=== PATIENT | female | born 1945 | race Caucasian/White ===

== ENCOUNTER → 2021-06-06 08:48 | Outpatient (BNVA) | payer MEDICARE, MEDICAID, SELFPAY | PROVIDERS: PCP Internal Medicine; Visit Provider Nurse Practitioner Gerontology | DX: E11.65 Type 2 diabetes mellitus with hyperglycemia (principal); E78.00 Pure hypercholesterolemia, unspecified; I10 Essential (primary) hypertension; E66.09 Other obesity due to excess calories | CPT/HCPCS: 82947; 99212 ==

== ENCOUNTER → 2021-07-09 10:42 | Outpatient (BNVA) | payer MEDICARE, MEDICAID, SELFPAY | PROVIDERS: PCP Internal Medicine; Visit Provider Dietitian, Registered | DX: E11.65 Type 2 diabetes mellitus with hyperglycemia (principal) | CPT/HCPCS: 97802 ==

== ENCOUNTER 2021-07-12 07:16 | Outpatient (REF) | payer MEDICARE, MEDICAID, SELFPAY ==
[2021-07-12 08:22] LABS: MANUAL DIFF FLAG NO
[2021-07-12 08:30] LABS: Basophils Absolute Auto 0.1 X10*3/uL (0.0-0.2); Basophils Percent Auto 0.7 % (0-2); Eosinophils Absolute Auto 0.3 X10*3/uL (0.0-0.4); Eosinophils Percent Auto 2.8 % (0-4); Hematocrit 46.2 % (37-47); Hemoglobin 15.4 g/dl (12.0-16.0); Imm Gran Abs Auto 0.03 X10*3/uL (0.00-0.03); Imm Gran Pct Auto 0.3 % (0.0-0.4); Lymphocytes Absolute Auto 1.8 X10*3/uL (1.2-4.9); Mean Corpuscular HGB Conc 33.3 g/dl (31.0-35.0); Mean Corpuscular Hemoglobin 29.7 pg (27.0-33.0); Mean Platelet Volume 9.7 fL (9.4-12.3); Monocytes Absolute Auto 0.6 X10*3/uL (0.1-1.2); Monocytes Percent Auto 6.3 % (2-11); Neutrophils Absolute Auto 6.4 X10*3/uL (2.0-8.3); Neutrophils Percent Auto 69.9 % (45-73); Platelet Count 291 X10*3/uL (160-400); Red Blood Count 5.19 X10*6/uL (4.20-5.50); Red Cell Distribution Width 12.1 % (11.0-16.0); White Blood Count 9.1 X10*3/uL (4.8-10.8)
[2021-07-12 08:39] LABS: Estimated Average Glucose 169 mg/dL; Hemoglobin A1c % 7.5 %
[2021-07-12 08:49] LABS: Alanine Aminotransferase 18 U/L (0-31); Albumin Level 4.1 g/dL (3.5-5.0); Alkaline Phosphatase 72 U/L (39-117); Anion Gap 14 (12-20); Aspartate Amino Transferase 18 U/L (5-31); Bilirubin Total 0.5 mg/dL (0.0-1.0); Blood Urea Nitrogen 13 mg/dL (9-16); Calcium 9.4 mg/dL (8.4-10.2); Carbon Dioxide 29 mmol/L (22-29); Chloride 97 mmol/L (96-108); Cholesterol 148 mg/dL; Estimated Glomerular Filt Rate > 60; Glucose Fasting 121 mg/dL (60-99); HDL Cholesterol 36 mg/dL; LDL Cholesterol Calculated 90 mg/dl; Potassium 4.5 mmol/L (3.3-5.1); Sodium 135 mmol/L (135-145); Total Protein 7.3 g/dL (6.5-8.0); Triglycerides 114 mg/dL
[2021-07-12 09:04] LABS: Free T4 (Free Thyroxine) 1.17 ng/dL (0.71-1.85); Thyroid Stimulating Hormone 0.65 uIU/mL (0.32-4.0); Vitamin D 25-OH Total 16.9 ng/mL (>30)
[2021-07-12 09:23] LABS: Folate 6.7 ng/mL (> or = 4.0); Vitamin B12 < 146 pg/mL (200-900)
[2021-07-12 10:01] LABS: Creatinine Urine 60.54 mg/dL
[2021-07-12 10:04] LABS: Creatinine Urine 59.37 mg/dL; Microalbum/Creatinine Ratio Ur 10.1 ug/mg cr
== END 2021-07-12 07:17 | disposition home or self-care (01) ==
LOC: HO.LAB 07:16
PROVIDERS: Absent Provider Internal Medicine; PCP Internal Medicine; Visit Provider Nurse Practitioner Gerontology
DX: E11.65 Type 2 diabetes mellitus with hyperglycemia (principal); E78.00 Pure hypercholesterolemia, unspecified; I10 Essential (primary) hypertension
CPT/HCPCS: 36415; 80053; 80061; 82043; 82306; 82607; 82746; 83036; 84439; 84443; 85025

== ENCOUNTER → 2021-09-18 14:44 | Outpatient (BNVA) | payer MEDICARE, MEDICAID, SELFPAY | PROVIDERS: PCP Internal Medicine; Visit Provider Nurse Practitioner Gerontology | DX: E11.65 Type 2 diabetes mellitus with hyperglycemia (principal); I10 Essential (primary) hypertension; E78.00 Pure hypercholesterolemia, unspecified; E78.5 Hyperlipidemia, unspecified; E55.9 Vitamin D deficiency, unspecified; E66.3 Overweight; F17.210 Nicotine dependence, cigarettes, uncomplicated; Z68.29 Body mass index [BMI] 29.0-29.9, adult; Z88.2 Allergy status to sulfonamides; Z88.7 Allergy status to serum and vaccine; Z88.8 Allergy status to other drugs, medicaments and biological substances; Z79.4 Long term (current) use of insulin; Z79.84 Long term (current) use of oral hypoglycemic drugs; Z79.899 Other long term (current) drug therapy | CPT/HCPCS: 82947; 99212 ==

== ENCOUNTER 2021-11-05 15:46 | Emergency (ER) | payer OTHER, MEDICARE, MEDICAID, SELFPAY ==
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
[2021-11-05 16:05] VITALS: BP 201/91; BP 216/68; PULSE 61; PULSE 63; RESP 18; TEMP 36.7; O2SAT 97; BMI 29.4
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
[2021-11-05 16:36] LABS: Glucose, Whole Blood 95 mg/dL (60-115)
[2021-11-05 17:49] VITALS: BP 216/68; PULSE 61
[2021-11-05] MEDS: Metoprolol Tartrate 100 MG TABLET PO (17:49)
== END 2021-11-05 17:50 | disposition home or self-care (01) ==
PROVIDERS: Emergency Provider Emergency Medicine Emergency Medical Services; PCP Internal Medicine
DX: S22.31XA Fracture of one rib, right side, initial encounter for closed fracture (principal); V43.52XA Car driver injured in collision with other type car in traffic accident, initial encounter; Y93.89 Activity, other specified; Y92.410 Unspecified street and highway as the place of occurrence of the external cause; Y99.9 Unspecified external cause status
CPT/HCPCS: 71101; 82947; 99283

== ENCOUNTER → 2022-01-09 08:48 | Outpatient (BNVA) | payer MEDICARE, MEDICAID, OTHER, SELFPAY | PROVIDERS: PCP Internal Medicine; Visit Provider Nurse Practitioner Gerontology | DX: E11.9 Type 2 diabetes mellitus without complications (principal); E78.00 Pure hypercholesterolemia, unspecified; E55.9 Vitamin D deficiency, unspecified; E66.3 Overweight; I10 Essential (primary) hypertension; Z68.27 Body mass index [BMI] 27.0-27.9, adult | CPT/HCPCS: 82947; 83036; 99212 ==

== ENCOUNTER 2022-07-23 09:05 | Outpatient (REF) | payer MEDICARE, MEDICAID, SELFPAY ==
--- NOTE | ~2022-07-23 | MM_ITS ---
EXAMINATION: BONE DENSITOMETRY CLINICAL INDICATION: Osteoporosis. COMPARISON: Previous BD dated 03/05/2010 and baseline BD dated 11/20/2010. TECHNIQUE: Using a [employer] DXA System (software version: 13.1) manufactured by [employer], dual-energy x-ray absorptiometry was performed of the lumbar spine and left hip. The images are of good technical quality. Summary results are attached. FINDINGS: AP SPINE L1-L4: Current: BMD 1.166 g/cm2, Z-score 1.0, T-score -0.1, normal, 1.3% decrease from previous, 8.4% decrease from baseline (<5% change is not significant). Prior: BMD 1.181 g/cm2. Baseline: BMD 1.273 g/cm2. LEFT FEMUR, NECK: Current: BMD 0.925 g/cm2, Z-score 0.7, T-score -0.8, normal. Prior: BMD 0.980 g/cm2. Baseline: BMD 1.016 g/cm2. LEFT FEMUR, TOTAL: Current: BMD 0.858 g/cm2, Z-score 0.1, T-score -1.2, osteopenia, 7.5% decrease from previous, 13.9% decrease from baseline (<5% change is not significant). Prior: BMD 0.928 g/cm2. Baseline: BMD 0.996 g/cm2. IDENTIFIED RISK FACTORS: Early menopause, secondary osteoporosis, tobacco use (current smoker). HISTORY OF FRACTURE: None listed. MEDICATIONS: Calcium, vitamin D. MM/XR DEXA axial skeleton IMPRESSION: 1. DIAGNOSIS: Osteopenia based on the lowest T-score value of -1.2 in the total femur applying World Health Organization criteria. 2. 10-YEAR FRACTURE RISK PREDICTION, FRAX: Major osteoporotic fracture (clinical spine, forearm, hip or shoulder) 8.6%. Hip fracture 1.8%. 3. Treatment Recommendations: NOF guidelines recommend consideration for treatment in postmenopausal women and men age 50 and older presenting with the following: -A hip or vertebral (clinical or morphometric) fracture. -T-score less than or equal to -2.5 at the femoral neck or spine after appropriate evaluation to exclude secondary causes. -Low bone mass at the hip or spine and a 10-year fracture probability by FRAX of greater than or equal to 3% for hip fracture or greater than or equal to 20% for major osteoporotic fracture based on the [place] adapted WHO algorithm. 4. Other Recommendations: All treatment decisions require clinical judgment and consideration of individual patient factors, including patient preferences, comorbidities, previous drug use, risk factors not captured in the FRAX model (e.g. frailty, falls, vitamin D deficiency, increased bone turnover, interval significant decline in bone density) and possible under or overestimation of fracture risk by FRAX. Additional medical evaluation for secondary cause of low bone mineral density may be appropriate. FUTURE SCAN RECOMMENDATION: People with diagnosed cases of osteoporosis or at high risk for fracture should have regular bone mineral density tests. For patients eligible for Medicare, routine testing is allowed once every 2 years. The testing frequency can be increased to one year for patients who have rapidly progressing disease, those who are receiving or discontinuing medical therapy to restore bone mass, or have additional risk factors.
--- NOTE | ~2022-07-23 | MM_ITS ---
EXAMINATION: MM SCREENING DIGITAL BREAST TOMOSYNTHESIS, BILATERAL CLINICAL INFORMATION: Screening. Asymptomatic. The lifetime risk of breast cancer based on the Tyrer-Cuzick Model is 2%. COMPARISON: Mammography: 04/06/2019, 03/05/2018, 02/28/2015 TECHNIQUE: Digital breast tomosynthesis is performed in both the craniocaudal and mediolateral oblique views along with computer-aided detection (CAD). Synthesized 2D images are generated from the tomosynthesis. FINDINGS: There are scattered areas of fibroglandular density (ACR BI-RADS breast composition Category b). There are no significant masses, abnormal calcifications, or other abnormalities. Parenchymal pattern is similar to prior studies. There is no developing density or architectural abnormality. The axilla and skin contours are unremarkable. MM/MM tomosynthesis screening BI IMPRESSION: No mammographic evidence of malignancy. ASSESSMENT: BI-RADS 1: Negative RECOMMENDATION: Routine annual mammography screening. This patient's information was entered into a reminder system with a target due date for their next mammogram.
== END 2022-07-23 09:06 | disposition home or self-care (01) ==
LOC: HO.MAMMO 09:05
PROVIDERS: PCP Internal Medicine; Visit Provider Internal Medicine
DX: Z13.820 Encounter for screening for osteoporosis (principal); Z12.31 Encounter for screening mammogram for malignant neoplasm of breast; M81.0 Age-related osteoporosis without current pathological fracture; Z78.0 Asymptomatic menopausal state
CPT/HCPCS: 77063; 77067; 77080

== ENCOUNTER 2022-12-13 19:14 | Inpatient (IN) | payer MEDICARE, MEDICAID, SELFPAY ==
--- NOTE | ~2022-12-13 | XR_ITS ---
EXAMINATION: XR CHEST CLINICAL INFORMATION: Altered mental status. Shortness of breath. COMPARISON: Chest done on 11/05/2021. TECHNIQUE: Frontal view of the chest was obtained. FINDINGS: Asymmetric elevated left hemidiaphragm, unchanged since 11/05/2021. Both lungs are clear. The cardiomediastinal silhouette is within normal limits. No evidence of any pleural effusion or pneumothorax. No significant change since prior study. XR/XR chest 1V IMPRESSION: No radiographic evidence of acute cardiopulmonary disease, unchanged since prior study.
--- NOTE | ~2022-12-13 | CT_ITS ---
EXAMINATION: CT HEAD WITHOUT CONTRAST CLINICAL INFORMATION: Altered mental status. Weakness. COMPARISON: None. TECHNIQUE: Contiguous axial imaging was performed from the skull base to vertex without intravenous administration of contrast. Coronal and sagittal reformatted images are performed at the CT scanner. [This CT examination was performed using dose optimization techniques as appropriate, variously including the following: *Automated exposure control *Adjustment of mA and/or kV according to patient size (this includes techniques or standardized protocols for targeted exams where dose is matched to indication/reason for exam; i.e. extremities or head) *Use of iterative reconstruction technique] DLP: 611 mGy-cm. FINDINGS: There is no evidence of acute intracranial hemorrhage or territorial infarction. No abnormal mass-effect or midline shift is seen. [place] to white matter differentiation is well preserved. No extra-axial fluid collections are identified. There is generalized global volume loss. There is mild prominence of the ventricles and the sulci . There are vascular calcifications of the internal carotid arteries bilaterally. There is no osseous abnormality. The mastoid air cells and visualized portions of the paranasal sinuses are well-aerated. CT/CT head/brain wo IV con IMPRESSION: No acute intracranial pathology.
--- NOTE | 2022-12-13 19:37 | ECG_ITS ---
Test Reason : GENERAL MEDICAL Blood Pressure : / mmHG Vent. Rate : 099 BPM Atrial Rate : 099 BPM P-R Int : 216 ms QRS Dur : 130 ms QT Int : 354 ms P-R-T Axes : 067 -23 003 degrees QTc Int : 454 ms Sinus rhythm with 1st degree A-V block Right bundle branch block Abnormal ECG When compared with ECG of 25-MAR-2019 09:24, [place] interval has increased Vent. rate has increased BY 40 BPM Referred By: Mandi Amanda Electronically Signed By:AGUILA CURTIS MD
[2022-12-13 19:39] VITALS: BP 178/63; BP 188/81; PULSE 100; PULSE 104; RESP 22; TEMP 40.1; O2SAT 93; O2SAT 94; BMI 28.4
--- NOTE | 2022-12-13 19:51 | ED.GENADULT ---
HPI - General Adult General Chief complaint: Fever Stated complaint: AMS/Fever Time Seen by Provider: 12/13/22 19:38 Source: patient Mode of arrival: ambulatory Limitations: no limitations History of Present Illness HPI narrative: This is a 77-year-old female history of hypertension, hypercholesterolemia, COPD, diabetes, vitamin B12 deficiency, anxiety, osteoporosis presenting to the emergency department via ambulance for feeling unwell. According to family member who is at the bedside patient had an episode of this shakes just prior to arrival, or patient was uncontrollably shaking for a few minutes, still alert and oriented however she could not stop shaking. Family thought that maybe this was patient's sugar they checked her blood sugar at home and it was 116. Patient reports generalized fatigue and malaise however has no other complaints. Family member at the bedside tells me that she noted that earlier today patient was a little bit more confused than usual however no other noted complaints. Patient denies chest pain, shortness of breath, nausea, vomiting, upper respiratory symptoms including cough, runny nose, lower extremity swelling, headache, urinary symptoms. GCS 15 NIHSS-0 Related Data Home Medications Medication Instructions Recorded Confirmed cetirizine 10 mg tablet (Zyrtec) 10 mg PO DAILY PRN 04/19/21 11/03/22 cholecalciferol (vitamin D3) 25 25 mcg PO DAILY 09/18/21 11/03/22 mcg (1,000 unit) capsule Previous Rx's Medication Instructions Recorded blood-glucose meter (FreeStyle #1 ea 04/19/21 Lite Meter kit) cyanocobalamin (vitamin B-12) 1,000 mcg PO DAILY #30 caps 07/12/21 1,000 mcg capsule metformin 500 mg tablet 500 mg PO BID #180 tabs 09/18/21 lancets 28 gauge (FreeStyle #200 ea 01/01/22 Lancets) blood sugar diagnostic (FreeStyle #200 ea 01/02/22 Lite Strips) simvastatin 40 mg tablet 40 mg PO QPM #90 tabs 02/24/22 blood pressure monitor (Blood #1 ea 11/03/22 Pressure Kit) losartan 50 mg tablet 50 mg PO DAILY #30 tabs 11/03/22 metoprolol tartrate 50 mg tablet 50 mg PO BID 30 days #60 tabs 11/03/22 Allergies Allergy/AdvReac Type Severity Reaction Status Date / Time amlodipine Allergy Unknown leg Verified 11/03/22 08:33 swelling irbesartan Allergy Unknown rectal Verified 11/03/22 08:33 bleeding iron Allergy Unknown cough Verified 11/03/22 08:33 lisinopril Allergy Unknown unknown Verified 11/03/22 08:33 simvastatin Allergy Unknown at 40 mg Verified 11/03/22 08:33 cramps Sulfa (Sulfonamide Allergy Unknown HIVES Verified 11/03/22 08:33 Antibiotics) [SULFA (SULFONAMIDE ANTIBIOTICS)] Influenza Virus Vaccine Live Allergy Unknown unknown Uncoded 11/03/22 08:33 Review of Systems Review of Systems: Constitutional : No Weight loss, No Fever, No Chills, + Fatigue, + Malaise ENT/Mouth : No sore throat, No Rhinorrhea Eyes: No Eye Pain, No Swelling, No Redness Cardiovascular : No Chest Pain, No SOB, No Dyspnea on Exertion, No Orthopnea, No Edema, No Palpitations Respiratory : No Cough, No Sputum, No Wheezing Gastrointestinal : No Nausea, No Vomiting, No Diarrhea, No Constipation, No abdominal Pain, No Hematochezia, No Melena Genitourinary : No Dysuria, No Urinary Frequency, No Hematuria, Musculoskeletal : No joint pain, No Myalgias, No Joint Swelling Skin : No Skin Lesions, No rash Neuro : No Weakness, No Numbness, No Dizziness, No Headache Psych : No Anxiety/Panic, No Depression Heme/Lymph: No Bruising, No Bleeding,No Lymphadenopathy Endocrine : No Polyuria, No Polydipsia All other systems reviewed and are negative Yes all other systems are reviewed and are negative [facility] Past Medical History Attestation statement: The following information was validated with the patient. Source: old records reviewed and nursing notes reviewed Medical History Allergic rhinitis Colonoscopy refused COPD (chronic obstructive pulmonary disease) DM2 (diabetes mellitus, type 2) Hypercholesterolemia Hypertension Obesity (BMI 30-39.9) Post herpetic neuralgia Tobacco abuse Type 2 diabetes mellitus with hyperglycemia Vitamin D deficiency Surgical History Deviated septum History of cataract surgery Family History Family History Father No problems noted. Mother No problems noted. Maternal Uncle Diabetes Maternal Uncle Heart problem Social History Social History Household Members: Family and Children Housing: House Alcohol intake: never Patient Tobacco Use Status: Current everyday Tobacco user Tobacco use type: Cigarette Cigarettes Per Day: 10 e-Cigarette/Vaping Use: Never Used Second Hand Smoke Exposure: Yes Advance Directives: No Advance Directives Information Provided: No service: No Current occupational status: retired Cognitive needs: No Hearing needs: No Vision needs: No Physical Exam ED Vital Signs: Vital Signs - 24 hr 12/13/22 19:39 12/13/22 21:14 Temperature 104.2 F H 100.2 F Pulse Rate 100 90 Respiratory Rate 22 H 20 Blood Pressure 178/63 H 150/58 H Pulse Oximetry 94 93 Oxygen Delivery Method Room Air Room Air BMI result Body Mass Index 28.4 Vital signs significant for fevers slight tachycardia likely secondary to fever, patient saturating 94% on room air Appearance: Alert.? Oriented X3.? No acute distress.? Head: Normocephalic, atraumatic, no step-offs or deformities Eyes: Pupils equal, round and reactive to light.? CVS: Normal heart rate and rhythm.? Pulses normal.? Respiratory: No respiratory distress.? Breath sounds normal.? Abdomen: Soft and nontender.? Skin: Skin warm and dry.? Normal skin color.? Normal skin turgor.? Extremities: No lower extremity edema.? No calf ttp, negative Ayla bilaterally. Global weakness Back: No midline tenderness, no C-spine tenderness, full range of motion, no CVA tenderness bilaterally Neuro: Oriented X 3.? No motor deficit.? No sensory deficit. CN 2-12 intact NIH stroke scale 0 Course Reevaluation(s) Reevaluation #1: CBC with slight leukocytosis, chemistry with sodium of 132 will give IV fluids, patient's BNP 284, troponin 56.6 will repeat troponin at 23:00 however EKG nonischemic low suspicion for ACS and patient without chest pain. Lactic acid negative. UA with infection, will initiate ceftriaxone at this time. Head CT and chest x-ray pending at this time. Suspect patient will require hospital admission Time: 20:49 Reevaluation #2: Head CT unremarkable, chest CT with no acute findings. Discussed this case with hospitalist who will admit patient for UTI, weakness, altered mental status. Time: 21:34 Medications Administered Discontinued Medications Generic Name Dose Route Start Last Admin Trade Name Nelsy PRN Reason Stop Dose Admin Acetaminophen 650 mg 12/13/22 19:56 12/13/22 20:15 Acetaminophen 325 Mg Tablet PO 12/13/22 19:57 650 mg ONCE ONE Administration Medical Decision Making Medical Decision Making [facility] Narrative: 1948 77-year-old female presents with fatigue, malaise and an episode of rigors at home just prior to arrival. No known sick contacts. Patient noted to be febrile and tachycardic. No other abnormal findings on exam. Likely viral in origin vs UTI. I do not suspect seizure, meningitis, encephalitis, stroke, posterior stroke, CHF, ACS, PE. Plan at this time labs, imaging, urine and viral panel Differential Diagnosis Differential Diagnoses: The differential diagnosis associated with the presentation includes Likely viral in origin VS UTI . I do not suspect seizure, meningitis, encephalitis, stroke, posterior stroke, CHF, ACS, PE. Admission/Observation Consideration of admission/observation: Escalation of care including admission/observation considered Consult Healthcare Provider Management of the patient was discussed with: Hospitalist Lab Data [facility] Lab Attestation statement: I reviewed the patient's lab results. 12/13/22 20:36 12/13/22 20:00 Labs: Lab Results 12/13/22 12/13/22 12/13/22 Range/Units 19:48 20:00 20:00 WBC (4.8-10.8) X10*3/uL RBC (4.20-5.50) X10*6/uL Hgb (12.0-16.0) g/dl Hct (37.0-47.0) % MCV (80.0-98.0) fL MCH (27.0-33.0) pg MCHC (31.0-35.0) g/dl RDW (11.0-16.0) % Plt Count (160-400) X10*3/uL MPV (9.4-12.3) fL Immature Gran % (Auto) (0.0-0.4) % Neut % (Auto) (45-73) % Lymph % (Auto) (20-40) % [place] % (Auto) (2-11) % Eos % (Auto) (0-4) % Baso % (Auto) (0-2) % Lymph # (Auto) (1.2-4.9) X10*3/uL [place] # (Auto) (0.1-1.2) X10*3/uL Eos # (Auto) (0.0-0.4) X10*3/uL Baso # (Auto) (0.0-0.2) X10*3/uL Abs Immat Gran (auto) (0.00-0.03) X10*3/uL Absolute Neuts (auto) (2.0-8.3) x10*3/uL Absolute Nucleated RBC (0.0-0.012) X10*3/uL Nucleated RBC % (auto) (0.0-0.2) /100WBC Smear Tech's Comments Sodium 132 L (135-145) mmol/L Potassium 4.4 (3.3-5.1) mmol/L Chloride 96 (96-108) mmol/L Carbon Dioxide 26 (22-29) mmol/L Anion Gap 14 (12-20) BUN 19 H (9-16) mg/dL Creatinine 0.89 (0.5-1.4) mg/dL Estim Creat Clear Calc 50.2 Estimated GFR > 60 POC Glucose 162 H (60-115) mg/dL Random Glucose 152 H (60-115) mg/dL Lactic Acid 1.5 (0.5-2.0) mmol/L Calcium 9.1 (8.4-10.2) mg/dL Magnesium 1.6 (1.6-2.6) mg/dL Total Bilirubin 0.9 (0.0-1.0) mg/dL AST 15 (5-31) U/L ALT 10 (0-31) U/L Alkaline Phosphatase 72 (39-117) U/L Troponin I High Sens (<3.5-17.0) ng/L B-Natriuretic Peptide (<100) pg/mL Total Protein 6.6 (6.5-8.0) g/dL Albumin 3.8 (3.5-5.0) g/dL Urine Color Urine Appearance Urine pH (5.0-9.0) Ur Specific [place] (1.005-1.025) Urine Protein (Neg-Trace) mg/dL Urine Glucose (UA) (Negative) mg/dL Urine Ketones (Negative) mg/dL Urine Blood (Negative) Urine Nitrite (Negative) Ur Leukocyte Esterase (Negative) Urine RBC (0-2) /HPF Urine WBC (0-5) /HPF Ur Squamous Epith Cells (0-2) /HPF Urine Bacteria (None Seen) Hyaline Casts (0-2) /LPF Urine Opiates Screen (Not Detect) Urine Fentanyl Screen (Not Detect) Ur Barbiturates Screen (Not Detect) Ur Phencyclidine Scrn (Not Detect) Ur Amphetamines Screen (Not Detect) U Benzodiazepines Scrn (Not Detect) Urine Cocaine Screen (Not Detect) U Marijuana (THC) Screen (Not Detect) Ethyl Alcohol mg/dL COVID-19 (ROSHAN) (Negative) COVID-19 Clin Com Influenza Type A (RICARDO) (Negative) Influenza Type B (RICARDO) (Negative) Influenza A & B Note 12/13/22 12/13/22 12/13/22 Range/Units 20:00 20:00 20:00 WBC (4.8-10.8) X10*3/uL RBC (4.20-5.50) X10*6/uL Hgb (12.0-16.0) g/dl Hct (37.0-47.0) % MCV (80.0-98.0) fL MCH (27.0-33.0) pg MCHC (31.0-35.0) g/dl RDW (11.0-16.0) % Plt Count (160-400) X10*3/uL MPV (9.4-12.3) fL Immature Gran % (Auto) (0.0-0.4) % Neut % (Auto) (45-73) % Lymph % (Auto) (20-40) % [place] % (Auto) (2-11) % Eos % (Auto) (0-4) % Baso % (Auto) (0-2) % Lymph # (Auto) (1.2-4.9) X10*3/uL [place] # (Auto) (0.1-1.2) X10*3/uL Eos # (Auto) (0.0-0.4) X10*3/uL Baso # (Auto) (0.0-0.2) X10*3/uL Abs Immat Gran (auto) (0.00-0.03) X10*3/uL Absolute Neuts (auto) (2.0-8.3) x10*3/uL Absolute Nucleated RBC (0.0-0.012) X10*3/uL Nucleated RBC % (auto) (0.0-0.2) /100WBC Smear Tech's Comments Sodium (135-145) mmol/L Potassium (3.3-5.1) mmol/L Chloride (96-108) mmol/L Carbon Dioxide (22-29) mmol/L Anion Gap (12-20) BUN (9-16) mg/dL Creatinine (0.5-1.4) mg/dL Estim Creat Clear Calc Estimated GFR POC Glucose (60-115) mg/dL Random Glucose (60-115) mg/dL Lactic Acid (0.5-2.0) mmol/L Calcium (8.4-10.2) mg/dL Magnesium (1.6-2.6) mg/dL Total Bilirubin (0.0-1.0) mg/dL AST (5-31) U/L ALT (0-31) U/L Alkaline Phosphatase (39-117) U/L Troponin I High Sens (<3.5-17.0) ng/L B-Natriuretic Peptide 284 H (<100) pg/mL Total Protein (6.5-8.0) g/dL Albumin (3.5-5.0) g/dL Urine Color Urine Appearance Urine pH (5.0-9.0) Ur Specific [place] (1.005-1.025) Urine Protein (Neg-Trace) mg/dL Urine Glucose (UA) (Negative) mg/dL Urine Ketones (Negative) mg/dL Urine Blood (Negative) Urine Nitrite (Negative) Ur Leukocyte Esterase (Negative) Urine RBC (0-2) /HPF Urine WBC (0-5) /HPF Ur Squamous Epith Cells (0-2) /HPF Urine Bacteria (None Seen) Hyaline Casts (0-2) /LPF Urine Opiates Screen (Not Detect) Urine Fentanyl Screen (Not Detect) Ur Barbiturates Screen (Not Detect) Ur Phencyclidine Scrn (Not Detect) Ur Amphetamines Screen (Not Detect) U Benzodiazepines Scrn (Not Detect) Urine Cocaine Screen (Not Detect) U Marijuana (THC) Screen (Not Detect) Ethyl Alcohol < 10 mg/dL COVID-19 (ROSHAN) Negative (Negative) COVID-19 Clin Com See Note Influenza Type A (RICARDO) (Negative) Influenza Type B (RICARDO) (Negative) Influenza A & B Note 12/13/22 12/13/22 12/13/22 Range/Units 20:07 20:07 20:09 WBC (4.8-10.8) X10*3/uL RBC (4.20-5.50) X10*6/uL Hgb (12.0-16.0) g/dl Hct (37.0-47.0) % MCV (80.0-98.0) fL MCH (27.0-33.0) pg MCHC (31.0-35.0) g/dl RDW (11.0-16.0) % Plt Count (160-400) X10*3/uL MPV (9.4-12.3) fL Immature Gran % (Auto) (0.0-0.4) % Neut % (Auto) (45-73) % Lymph % (Auto) (20-40) % [place] % (Auto) (2-11) % Eos % (Auto) (0-4) % Baso % (Auto) (0-2) % Lymph # (Auto) (1.2-4.9) X10*3/uL [place] # (Auto) (0.1-1.2) X10*3/uL Eos # (Auto) (0.0-0.4) X10*3/uL Baso # (Auto) (0.0-0.2) X10*3/uL Abs Immat Gran (auto) (0.00-0.03) X10*3/uL Absolute Neuts (auto) (2.0-8.3) x10*3/uL Absolute Nucleated RBC (0.0-0.012) X10*3/uL Nucleated RBC % (auto) (0.0-0.2) /100WBC Smear Tech's Comments Sodium (135-145) mmol/L Potassium (3.3-5.1) mmol/L Chloride (96-108) mmol/L Carbon Dioxide (22-29) mmol/L Anion Gap (12-20) BUN (9-16) mg/dL Creatinine (0.5-1.4) mg/dL Estim Creat Clear Calc Estimated GFR POC Glucose (60-115) mg/dL Random Glucose (60-115) mg/dL Lactic Acid (0.5-2.0) mmol/L Calcium (8.4-10.2) mg/dL Magnesium (1.6-2.6) mg/dL Total Bilirubin (0.0-1.0) mg/dL AST (5-31) U/L ALT (0-31) U/L Alkaline Phosphatase (39-117) U/L Troponin I High Sens 56.6 H* (<3.5-17.0) ng/L B-Natriuretic Peptide (<100) pg/mL Total Protein (6.5-8.0) g/dL Albumin (3.5-5.0) g/dL Urine Color Yellow Urine Appearance Cloudy Urine pH 7.0 (5.0-9.0) Ur Specific [place] 1.010 (1.005-1.025) Urine Protein 100 (2+) H (Neg-Trace) mg/dL Urine Glucose (UA) Negative (Negative) mg/dL Urine Ketones Trace (Negative) mg/dL Urine Blood Moderate (2+) H (Negative) Urine Nitrite Positive H (Negative) Ur Leukocyte Esterase Moderate (2+) H (Negative) Urine RBC 11-20 H (0-2) /HPF Urine WBC >50 H (0-5) /HPF Ur Squamous Epith Cells 0-2 (0-2) /HPF Urine Bacteria 4+ (None Seen) Hyaline Casts 0-2 (0-2) /LPF Urine Opiates Screen (Not Detect) Urine Fentanyl Screen (Not Detect) Ur Barbiturates Screen (Not Detect) Ur Phencyclidine Scrn (Not Detect) Ur Amphetamines Screen (Not Detect) U Benzodiazepines Scrn (Not Detect) Urine Cocaine Screen (Not Detect) U Marijuana (THC) Screen (Not Detect) Ethyl Alcohol mg/dL COVID-19 (ROSHAN) (Negative) COVID-19 Clin Com Influenza Type A (RICARDO) Negative (Negative) Influenza Type B (RICARDO) Negative (Negative) Influenza A & B Note See Note 12/13/22 12/13/22 Range/Units 20:36 20:36 WBC 11.4 H (4.8-10.8) X10*3/uL RBC 4.65 (4.20-5.50) X10*6/uL Hgb 13.7 (12.0-16.0) g/dl Hct 40.0 (37.0-47.0) % MCV 86.0 (80.0-98.0) fL MCH 29.5 (27.0-33.0) pg MCHC 34.3 (31.0-35.0) g/dl RDW 12.7 (11.0-16.0) % Plt Count 188 (160-400) X10*3/uL MPV 8.8 L (9.4-12.3) fL Immature Gran % (Auto) 0.4 (0.0-0.4) % Neut % (Auto) 91.5 H (45-73) % Lymph % (Auto) 3.8 L (20-40) % [place] % (Auto) 4.0 (2-11) % Eos % (Auto) 0.1 (0-4) % Baso % (Auto) 0.2 (0-2) % Lymph # (Auto) 0.4 L (1.2-4.9) X10*3/uL [place] # (Auto) 0.5 (0.1-1.2) X10*3/uL Eos # (Auto) 0.0 (0.0-0.4) X10*3/uL Baso # (Auto) 0.0 (0.0-0.2) X10*3/uL Abs Immat Gran (auto) 0.05 H (0.00-0.03) X10*3/uL Absolute Neuts (auto) 10.4 H (2.0-8.3) x10*3/uL Absolute Nucleated RBC 0.000 (0.0-0.012) X10*3/uL Nucleated RBC % (auto) 0.0 (0.0-0.2) /100WBC Smear Tech's Comments VERIFIED Sodium (135-145) mmol/L Potassium (3.3-5.1) mmol/L Chloride (96-108) mmol/L Carbon Dioxide (22-29) mmol/L Anion Gap (12-20) BUN (9-16) mg/dL Creatinine (0.5-1.4) mg/dL Estim Creat Clear Calc Estimated GFR POC Glucose (60-115) mg/dL Random Glucose (60-115) mg/dL Lactic Acid (0.5-2.0) mmol/L Calcium (8.4-10.2) mg/dL Magnesium (1.6-2.6) mg/dL Total Bilirubin (0.0-1.0) mg/dL AST (5-31) U/L ALT (0-31) U/L Alkaline Phosphatase (39-117) U/L Troponin I High Sens (<3.5-17.0) ng/L B-Natriuretic Peptide (<100) pg/mL Total Protein (6.5-8.0) g/dL Albumin (3.5-5.0) g/dL Urine Color Urine Appearance Urine pH (5.0-9.0) Ur Specific [place] (1.005-1.025) Urine Protein (Neg-Trace) mg/dL Urine Glucose (UA) (Negative) mg/dL Urine Ketones (Negative) mg/dL Urine Blood (Negative) Urine Nitrite (Negative) Ur Leukocyte Esterase (Negative) Urine RBC (0-2) /HPF Urine WBC (0-5) /HPF Ur Squamous Epith Cells (0-2) /HPF Urine Bacteria (None Seen) Hyaline Casts (0-2) /LPF Urine Opiates Screen Not Detected (Not Detect) Urine Fentanyl Screen Not Detected (Not Detect) Ur Barbiturates Screen Not Detected (Not Detect) Ur Phencyclidine Scrn Not Detected (Not Detect) Ur Amphetamines Screen Not Detected (Not Detect) U Benzodiazepines Scrn Not Detected (Not Detect) Urine Cocaine Screen Not Detected (Not Detect) U Marijuana (THC) Screen Not Detected (Not Detect) Ethyl Alcohol mg/dL COVID-19 (ROSHAN) (Negative) COVID-19 Clin Com Influenza Type A (RICARDO) (Negative) Influenza Type B (RICARDO) (Negative) Influenza A & B Note Independent Interpretation I performed an independent interpretation of an: Plain X-Ray and CT Scan Radiology Impression Discussion of test interpretation with radiology: I have reviewed the radiologist's reading. External Record Review External record reviewed: Inpatient record, Office record, Outpatient record, Prior outpatient labs, Prior outpatient radiology, Primary care record and Outside ED record Chronic Conditions Patient?s care impacted by: Diabetes and Hypertension Core Measures AMI core measures followed: Yes Measure exclusions: not indicated Critical Care Time Critical Care Time Critical Care Time: No Discharge Plan Discharge Clinical Impression: Rigors, Acute UTI, Physical deconditioning Patient Disposition: Admitted As Inpatient Prescriptions: No Action cyanocobalamin (vitamin B-12) 1,000 mcg capsule 1,000 mcg PO DAILY Qty: 30 3RF (DME) lancets [FreeStyle Lancets] 28 gauge misc See Rx Instructions .ROUTE .MEDSUPPLY Qty: 200 3RF Rx Instructions: As directed check BS BID (DME) FreeStyle Lite Strips Strip See Rx Instructions .ROUTE .MEDSUPPLY Qty: 200 3RF Rx Instructions: As directed check the BS twice daily simvastatin 40 mg tablet 40 mg PO QPM Qty: 90 2RF cetirizine [Zyrtec] 10 mg tablet 10 mg PO DAILY PRN (DME) blood-glucose meter [FreeStyle Lite Meter] Kit See Rx Instructions .ROUTE .MEDSUPPLY Qty: 1 0RF Rx Instructions: As directed (DME) blood pressure monitor [Blood Pressure Kit] Kit See Rx Instructions .ROUTE .MEDSUPPLY Qty: 1 0RF Rx Instructions: As directed losartan 50 mg tablet 50 mg PO DAILY Qty: 30 3RF metoprolol tartrate 50 mg tablet 50 mg PO BID 30 Days Qty: 60 3RF Rx Instructions: bradycardia changed 06/2022 from 100 mg to 50 mg cholecalciferol (vitamin D3) 25 mcg (1,000 unit) capsule 25 mcg PO DAILY metformin 500 mg tablet 500 mg PO BID Qty: 180 6RF
[2022-12-13 19:52] LABS: Glucose, Whole Blood 162 mg/dL (60-115)
[2022-12-13] MEDS: Acetaminophen 325 MG TABLET 650 MG PO (20:15)
[2022-12-13 20:21] LABS: Appearance Urine Cloudy; Color Urine Yellow; Glucose Urine UA Negative (Negative); Leukocyte Esterase Urine Moderate (2+) (Negative); Nitrite Urine Positive (Negative); UMIC TRIGGER UACC YES; Urine Blood Moderate (2+) (Negative); Urine Ketones Trace mg/dL (Negative); Urine Protein 100 (2+) mg/dL (Neg-Trace)
[2022-12-13 20:22] LABS: Lactic Acid 1.5 mmol/L (0.5-2.0)
[2022-12-13 20:24] LABS: COVID-19 Test Negative (Negative); IDNOW Serial# 6674DD1D
[2022-12-13 20:26] LABS: Alanine Aminotransferase 10 U/L (0-31); Albumin Level 3.8 g/dL (3.5-5.0); Alkaline Phosphatase 72 U/L (39-117); Anion Gap 14 (12-20); Aspartate Amino Transferase 15 U/L (5-31); Bilirubin Total 0.9 mg/dL (0.0-1.0); Blood Urea Nitrogen 19 mg/dL (9-16); Calcium 9.1 mg/dL (8.4-10.2); Carbon Dioxide 26 mmol/L (22-29); Chloride 96 mmol/L (96-108); Creatinine Clr Calc Pharmacy 50.2; Estimated Glomerular Filt Rate > 60; Glucose Random 152 mg/dL (60-115); Magnesium 1.6 mg/dL (1.6-2.6); Potassium 4.4 mmol/L (3.3-5.1); Sodium 132 mmol/L (135-145); Total Protein 6.6 g/dL (6.5-8.0)
[2022-12-13 20:31] LABS: Ethanol < 10 mg/dL
--- NOTE | 2022-12-13 20:31 | PC.NURSE ---
PT A&Ox3, reports feeling lousy, shaking, unable to warm up, frequent urinations with no pain. EMS reports temporal fever of 103. Rectal temp 104.2. Provider notified. Med given as documented. Visitor at bedside. PT assisted to bedpan. Urine sample collected and sent to lab.
[2022-12-13 20:32] LABS: Bacteria Urine 4+ (None Seen); Hyaline Casts Urine 0-2 /LPF (0-2); Squamous Epithelial Cell Urine 0-2 /HPF (0-2); UACC Culture Trigger YES; WBC Urine >50 /HPF (0-5)
[2022-12-13 20:35] LABS: IDNOW Serial# 55D5AD1C; Influenza A Negative (Negative); Influenza B2 Negative (Negative)
[2022-12-13 20:41] LABS: B Type Natriuretic Peptide 284 pg/mL (<100)
[2022-12-13 20:45] LABS: Basophils Percent Auto 0.2 % (0-2); Eosinophils Percent Auto 0.1 % (0-4); Hemoglobin 13.7 g/dl (12.0-16.0); Imm Gran Abs Auto 0.05 X10*3/uL (0.00-0.03); Imm Gran Pct Auto 0.4 % (0.0-0.4); Lymphocytes Absolute Auto 0.4 X10*3/uL (1.2-4.9); Lymphocytes Percent Auto 3.8 % (20-40); MANUAL DIFF FLAG SCAN; Mean Corpuscular HGB Conc 34.3 g/dl (31.0-35.0); Mean Corpuscular Hemoglobin 29.5 pg (27.0-33.0); Mean Platelet Volume 8.8 fL (9.4-12.3); Monocytes Absolute Auto 0.5 X10*3/uL (0.1-1.2); Neutrophils Absolute Auto 10.4 x10*3/uL (2.0-8.3); Neutrophils Percent Auto 91.5 % (45-73); Platelet Count 188 X10*3/uL (160-400); Red Blood Count 4.65 X10*6/uL (4.20-5.50); Red Cell Distribution Width 12.7 % (11.0-16.0); SCAN SMEAR FLAG 1; White Blood Count 11.4 X10*3/uL (4.8-10.8)
[2022-12-13 20:48] LABS: Troponin-I High Sensitivity 56.6 ng/L (<3.5-17.0)
[2022-12-13 20:59] LABS: Amphetamine Screen Urine Not Detected (Not Detect); Barbiturates, Urine Not Detected (Not Detect); Benzodiazepines Screen Urine Not Detected (Not Detect); Cannabinoid Screen Urine Not Detected (Not Detect); Cocaine Screen Urine Not Detected (Not Detect); Fentanyl, urine Not Detected (Not Detect); Opiate Screen Urine Not Detected (Not Detect); Phencyclidine Screen Urine Not Detected (Not Detect)
[2022-12-13 21:07] LABS: SLIDE REVIEW VERIFIED
[2022-12-13 21:14] VITALS: BP 150/58; PULSE 90; RESP 20; TEMP 37.9; O2SAT 93
[2022-12-13] MEDS: cefTRIAXone sodium 1 GM in 0.9 % Sodium Chloride 50 ML IV (21:35)
[2022-12-13] MEDS: 0.9 % Sodium Chloride 1,000 ML 999 ML IV ×2 (21:36→22:41)
[2022-12-13 21:38] VITALS: TEMP 37.3
--- NOTE | 2022-12-13 22:15 | PM.IMHP ---
History of Present Illness Date of Service: 12/13/22 Chief Complaint: Fever This is a 77-year-old female with pertinent history of bzj-gbozrum-inylgogrb diabetes mellitus, mood disorder, essential hypertension, mixed hyperlipidemia who presents to the emergency department for evaluation of fever and chills. Patient states she had chills with shaking throughout the day. Also had a febrile episode during the day. Patient does report generalized fatigue and decreased p.o. intake. On review of systems, she endorses dysuria and urinary urgency with increased frequency. Niece at bedside also reported some confusion throughout the day which is unlike her. Patient denies nausea, vomiting, chest discomfort, palpitations, shortness of breath, abdominal pain, changes in bowel habits. The emergency department, patient was found to have UTI and was SIRS + Review of Systems Constitutional: Constitutional: Reports chills, Reports fatigue, Reports fever(s), Reports lethargy and Reports malaise Cardiovascular: Cardiovascular: Reports no additional cardiovascular complaints Respiratory: Respiratory: Reports no additional respiratory complaints Gastrointestinal: Gastrointestinal: Reports no additional gastrointestinal complaints Genitourinary: Genitourinary: Reports dysuria, Reports urinary incontinence and Reports urinary urgency Endocrine: Endocrine: Reports fatigue [facility] Medical History Allergic rhinitis Colonoscopy refused COPD (chronic obstructive pulmonary disease) DM2 (diabetes mellitus, type 2) Hypercholesterolemia Hypertension Obesity (BMI 30-39.9) Post herpetic neuralgia Tobacco abuse Type 2 diabetes mellitus with hyperglycemia Vitamin D deficiency Family History Father No problems noted. Mother No problems noted. Maternal Uncle Diabetes Maternal Uncle Heart problem Surgical History Deviated septum History of cataract surgery Social History Household Members: Family and Children Housing: House Alcohol intake: never Patient Tobacco Use Status: Current everyday Tobacco user Tobacco use type: Cigarette Cigarettes Per Day: 10 e-Cigarette/Vaping Use: Never Used Second Hand Smoke Exposure: Yes Advance Directives: No Advance Directives Information Provided: No service: No Current occupational status: retired Cognitive needs: No Hearing needs: No Vision needs: No Meds Allergies Allergy/AdvReac Type Severity Reaction Status Date / Time amlodipine Allergy Unknown leg Verified 11/03/22 08:33 swelling irbesartan Allergy Unknown rectal Verified 11/03/22 08:33 bleeding iron Allergy Unknown cough Verified 11/03/22 08:33 lisinopril Allergy Unknown unknown Verified 11/03/22 08:33 simvastatin Allergy Unknown at 40 mg Verified 11/03/22 08:33 cramps Sulfa (Sulfonamide Allergy Unknown HIVES Verified 11/03/22 08:33 Antibiotics) [SULFA (SULFONAMIDE ANTIBIOTICS)] Influenza Virus Vaccine Live Allergy Unknown unknown Uncoded 11/03/22 08:33 Active Medications: Current Medications Acetaminophen (Acetaminophen 325 Mg Tablet) 650 mg PO Q6H PRN PRN Reason: Pain, Mild (Pain Scale 1-3) Dextrose (Dextrose 50 % 25 Gm/50 Ml Syringe) 25 gm IVPUSH Q15M PRN; Protocol PRN Reason: per Hypoglycemia Standing Ord. Enoxaparin Sodium (Enoxaparin Sodium 40 Mg/0.4 Ml Syringe) 40 mg SUBCUT Q24H [facility] Glucose (Glucose Gel 15 Gm Gel..Gram.) 15 gm PO Q15M PRN; Protocol PRN Reason: per Hypoglycemia Standing Ord. Sodium Chloride (Ns) 1,000 mls @ 999 mls/hr IV .Q1H1M [facility] Stop: 12/13/22 22:45 Ceftriaxone Sodium 1 gm/ (Sodium Chloride) 50 mls @ 100 mls/hr IV Q24H [facility] Insulin Human Lispro (Insulin Lispro 100 Unit/Ml 3 Ml Vial) 0 unit SUBCUT QIDACHS [facility]; Protocol Melatonin (Melatonin 3 Mg Tablet) 6 mg PO BEDTIME PRN PRN Reason: Insomnia Ondansetron HCl (Ondansetron Hcl 4 Mg/2 Ml Vial) 4 mg IVPUSH Q8H PRN PRN Reason: Nausea and Vomiting Pharmacy Consult (Consult Rx Perform Med Rec) 1 each MISCELLANE ONCE PRN PRN Reason: Consult order Sodium Chloride (0.9 % Sodium Chloride Flush 3 Ml Syringe) 3 ml IVFLUSH QSHIFT [facility] Home Medications Medication Instructions Recorded Confirmed Last Taken Type cetirizine 10 mg tablet (Zyrtec) 10 mg PO DAILY PRN 04/19/21 11/03/22 Unknown History cholecalciferol (vitamin D3) 25 25 mcg PO DAILY 09/18/21 11/03/22 Unknown History mcg (1,000 unit) capsule Physical Exam Vital Signs and Narrative: Vital Signs: Last Vital Signs Temp 99.2 F 12/13/22 21:38 Pulse 90 12/13/22 21:14 Resp 20 12/13/22 21:14 BP 150/58 H 12/13/22 21:14 Pulse Ox 93 12/13/22 21:14 O2 Del Method 12/13/22 21:14 BMI result Body Mass Index 28.4 Elderly female lying in bed in no distress Neck supple, no JVD Regular rate and rhythm, S1-S2 heard Regular breath sounds bilaterally, no wheezing or crackles appreciated Abdomen soft nontender, no guarding, no rigidity, no CVA tenderness Patient is awake, alert and oriented to self, place, and person ; no focal motor deficit Psych: Normal mood No pedal edema Results Labs 12/13/22 20:36 12/13/22 20:00 Labs: Laboratory Results - last 24 hr 12/13/22 12/13/22 12/13/22 19:48 20:00 20:00 MCV MCH MCHC RDW Plt Count MPV Immature Gran % (Auto) Neut % (Auto) Lymph % (Auto) [place] % (Auto) Eos % (Auto) Baso % (Auto) Lymph # (Auto) [place] # (Auto) Eos # (Auto) Baso # (Auto) Abs Immat Gran (auto) Absolute Neuts (auto) Absolute Nucleated RBC Nucleated RBC % (auto) Smear Tech's Comments Anion Gap 14 Estim Creat Clear Calc 50.2 Estimated GFR > 60 POC Glucose 162 H Random Glucose 152 H Lactic Acid 1.5 Calcium 9.1 Magnesium 1.6 Total Bilirubin 0.9 AST 15 ALT 10 Alkaline Phosphatase 72 Troponin I High Sens B-Natriuretic Peptide Total Protein 6.6 Albumin 3.8 Urine Color Urine Appearance Urine pH Ur Specific [place] Urine Protein Urine Glucose (UA) Urine Ketones Urine Blood Urine Nitrite Ur Leukocyte Esterase Urine RBC Urine WBC Ur Squamous Epith Cells Urine Bacteria Hyaline Casts Urine Opiates Screen Urine Fentanyl Screen Ur Barbiturates Screen Ur Phencyclidine Scrn Ur Amphetamines Screen U Benzodiazepines Scrn Urine Cocaine Screen U Marijuana (THC) Screen Ethyl Alcohol COVID-19 ([facility]) COVID-19 Clin Com Influenza Type A ([facility]IC[facility]O) Influenza Type B ([facility]O) Influenza A & B Note 12/13/22 12/13/22 12/13/22 20:00 20:00 20:00 MCV MCH MCHC RDW Plt Count MPV Immature Gran % (Auto) Neut % (Auto) Lymph % (Auto) [place] % (Auto) Eos % (Auto) Baso % (Auto) Lymph # (Auto) [place] # (Auto) Eos # (Auto) Baso # (Auto) Abs Immat Gran (auto) Absolute Neuts (auto) Absolute Nucleated RBC Nucleated RBC % (auto) Smear Tech's Comments Anion Gap Estim Creat Clear Calc Estimated GFR POC Glucose Random Glucose Lactic Acid Calcium Magnesium Total Bilirubin AST ALT Alkaline Phosphatase Troponin I High Sens B-Natriuretic Peptide 284 H Total Protein Albumin Urine Color Urine Appearance Urine pH Ur Specific [place] Urine Protein Urine Glucose (UA) Urine Ketones Urine Blood Urine Nitrite Ur Leukocyte Esterase Urine RBC Urine WBC Ur Squamous Epith Cells Urine Bacteria Hyaline Casts Urine Opiates Screen Urine Fentanyl Screen Ur Barbiturates Screen Ur Phencyclidine Scrn Ur Amphetamines Screen U Benzodiazepines Scrn Urine Cocaine Screen U Marijuana (THC) Screen Ethyl Alcohol < 10 COVID-19 ([facility]) Negative COVID-19 Clin Com See Note Influenza Type A ([facility]O) Influenza Type B ([facility]) Influenza A & B Note 12/13/22 12/13/22 12/13/22 20:07 20:07 20:09 MCV MCH MCHC RDW Plt Count MPV Immature Gran % (Auto) Neut % (Auto) Lymph % (Auto) [place] % (Auto) Eos % (Auto) Baso % (Auto) Lymph # (Auto) [place] # (Auto) Eos # (Auto) Baso # (Auto) Abs Immat Gran (auto) Absolute Neuts (auto) Absolute Nucleated RBC Nucleated RBC % (auto) Smear Tech's Comments Anion Gap Estim Creat Clear Calc Estimated GFR POC Glucose Random Glucose Lactic Acid Calcium Magnesium Total Bilirubin AST ALT Alkaline Phosphatase Troponin I High Sens 56.6 H* B-Natriuretic Peptide Total Protein Albumin Urine Color Yellow Urine Appearance Cloudy Urine pH 7.0 Ur Specific [place] 1.010 Urine Protein 100 (2+) H Urine Glucose (UA) Negative Urine Ketones Trace Urine Blood Moderate (2+) H Urine Nitrite Positive H Ur Leukocyte Esterase Moderate (2+) H Urine RBC 11-20 H Urine WBC >50 H Ur Squamous Epith Cells 0-2 Urine Bacteria 4+ Hyaline Casts 0-2 Urine Opiates Screen Urine Fentanyl Screen Ur Barbiturates Screen Ur Phencyclidine Scrn Ur Amphetamines Screen U Benzodiazepines Scrn Urine Cocaine Screen U Marijuana (THC) Screen Ethyl Alcohol COVID-19 ([facility]) COVID-19 Clin Com Influenza Type A ([facility]IC[facility]O) Negative Influenza Type B ([facility]O) Negative Influenza A & B Note See Note 12/13/22 12/13/22 20:36 20:36 MCV 86.0 MCH 29.5 MCHC 34.3 RDW 12.7 Plt Count 188 MPV 8.8 L Immature Gran % (Auto) 0.4 Neut % (Auto) 91.5 H Lymph % (Auto) 3.8 L [place] % (Auto) 4.0 Eos % (Auto) 0.1 Baso % (Auto) 0.2 Lymph # (Auto) 0.4 L [place] # (Auto) 0.5 Eos # (Auto) 0.0 Baso # (Auto) 0.0 Abs Immat Gran (auto) 0.05 H Absolute Neuts (auto) 10.4 H Absolute Nucleated RBC 0.000 Nucleated RBC % (auto) 0.0 Smear Tech's Comments VERIFIED Anion Gap Estim Creat Clear Calc Estimated GFR POC Glucose Random Glucose Lactic Acid Calcium Magnesium Total Bilirubin AST ALT Alkaline Phosphatase Troponin I High Sens B-Natriuretic Peptide Total Protein Albumin Urine Color Urine Appearance Urine pH Ur Specific [place] Urine Protein Urine Glucose (UA) Urine Ketones Urine Blood Urine Nitrite Ur Leukocyte Esterase Urine RBC Urine WBC Ur Squamous Epith Cells Urine Bacteria Hyaline Casts Urine Opiates Screen Not Detected Urine Fentanyl Screen Not Detected Ur Barbiturates Screen Not Detected Ur Phencyclidine Scrn Not Detected Ur Amphetamines Screen Not Detected U Benzodiazepines Scrn Not Detected Urine Cocaine Screen Not Detected U Marijuana (THC) Screen Not Detected Ethyl Alcohol COVID-19 ([facility]) COVID-19 Clin Com Influenza Type A (RICARDO) Influenza Type B ([facility]) Influenza A & B Note Imaging Radiologist's Impressions: Impressions Chest X-Ray 12/13/22 20:30 IMPRESSION: No radiographic evidence of acute cardiopulmonary disease, unchanged since prior study. Head CT 12/13/22 20:47 IMPRESSION: No acute intracranial pathology. Assessment and Plan (1) Acute UTI: Status: Acute Plan This is a 77-year-old female with pertinent history of rcz-lsvmizv-kukyajkwj diabetes mellitus, mood disorder, essential hypertension, mixed hyperlipidemia who presents to the emergency department for evaluation of fever and chills. #. Sepsis due to acute UTI: Will admit patient and continue IV Rocephin empirically. Blood cultures and lactic acid obtained in the ER. Follow urine cultures. Patient resuscitated with IV crystalloids. #. Acute metabolic encephalopathy due to above #. Ykf-vanegbk-yjsrckjih diabetes mellitus: Hold home metformin. Initiate Accu-Cheks with sliding scale insulin #. Essential hypertension: Hold antihypertensives in the setting of sepsis. Resume as appropriate #. Mood disorder: Continue home mood stabilizers #. Elevated troponin: Likely in the setting of increased amount. Patient without chest pain. Will repeat Med rec pending DVT prophylaxis: Lovenox 40 mg daily Full code Cardiac diet Admit as inpatient and will require two night minimum hospital stay for IV antibiotics Time Spent With Patient Time: Total time managing care of this patient today ____ minutes. Quality Stroke Does the patient have a stroke diagnosis?: No VTE Prior VTE?: No VTE Risk Level:: Medical - moderate - high VTE Device Contraindication: Treatment Not Indicated VTE Drug Contraindication: N/A - Med Ordered
[2022-12-13] MEDS: 0.9 % Sodium Chloride 250 ML 999 ML IV (22:42)
[2022-12-13 22:45] VITALS: BP 129/52; PULSE 82; RESP 19; TEMP 37; O2SAT 95
[2022-12-13] MEDS: Enoxaparin Sodium 40 MG/0.4 ML SYRINGE SUBCUT (22:48)
--- NOTE | 2022-12-13 23:00 | MHC.EDTECH ---
this pct assumed care of patient at 2300 ,patient rang call whalen needed to use the commode ,patient void large amount of urine ,back to bed warm blanket and pillow given,0000 vitals sign taken ,patient watching television ,call whalen within reach .
[2022-12-13 23:33] VITALS: BP 137/67; PULSE 81; RESP 20; TEMP 37; O2SAT 95
--- NOTE | 2022-12-14 00:53 | PC.NURSE ---
Addendum entered by Liz Rodriguez 12/14/22 00:56: PT denies any pain. Original Note: RN to RN report give. PT aware of plan. Will be transported to room 345 by java technical manager.
--- NOTE | 2022-12-14 01:05 | MHC.EDTECH ---
patient has a bed assignment ,this pct is transporting patient to [facility] surge room 345 .
[2022-12-14 01:25] VITALS: BMI 28.5
[2022-12-14 01:39] VITALS: BP 166/77; PULSE 77; RESP 18; TEMP 36.4; O2SAT 98
[2022-12-14 03:31] VITALS: BP 168/76; PULSE 79; RESP 18; TEMP 36.8; O2SAT 97
[2022-12-14 06:12] LABS: MANUAL DIFF FLAG NO
[2022-12-14 06:14] LABS: Basophils Percent Auto 0.4 % (0-2); Eosinophils Percent Auto 0.2 % (0-4); Hematocrit 38.5 % (37.0-47.0); Hemoglobin 13.1 g/dl (12.0-16.0); Imm Gran Abs Auto 0.04 X10*3/uL (0.00-0.03); Imm Gran Pct Auto 0.4 % (0.0-0.4); Lymphocytes Absolute Auto 1.1 X10*3/uL (1.2-4.9); Lymphocytes Percent Auto 11.2 % (20-40); Mean Corpuscular Hemoglobin 29.8 pg (27.0-33.0); Mean Corpuscular Volume 87.7 fL (80.0-98.0); Mean Platelet Volume 8.9 fL (9.4-12.3); Monocytes Absolute Auto 0.7 X10*3/uL (0.1-1.2); Monocytes Percent Auto 7.4 % (2-11); Neutrophils Absolute Auto 7.7 x10*3/uL (2.0-8.3); Neutrophils Percent Auto 80.4 % (45-73); Platelet Count 176 X10*3/uL (160-400); Red Blood Count 4.39 X10*6/uL (4.20-5.50); Red Cell Distribution Width 12.6 % (11.0-16.0); White Blood Count 9.6 X10*3/uL (4.8-10.8)
[2022-12-14 06:45] LABS: Anion Gap 10 (12-20); Blood Urea Nitrogen 14 mg/dL (9-16); Calcium 8.5 mg/dL (8.4-10.2); Carbon Dioxide 28 mmol/L (22-29); Chloride 104 mmol/L (96-108); Creatinine Clr Calc Pharmacy 60.5; Estimated Glomerular Filt Rate > 60; Glucose Random 115 mg/dL (60-115); Potassium 3.7 mmol/L (3.3-5.1); Sodium 138 mmol/L (135-145)
[2022-12-14 06:47] LABS: Troponin-I High Sensitivity 374.1 ng/L (<3.5-17.0)
[2022-12-14 07:35] LABS: Glucose, Whole Blood 124 mg/dL (60-115)
[2022-12-14] MEDS: 0.9 % Sodium Chloride Flush 3 ML SYRINGE IVFLUSH ×3 (07:42→19:59)
[2022-12-14 08:00] VITALS: BP 182/77; PULSE 68; RESP 17; TEMP 36.7; O2SAT 96
--- NOTE | 2022-12-14 08:13 | P.PNIM_ITS ---
Subjective Subjective Date of Service: 12/14/22 Interval History: cc: rigors interval history:much better Physical Exam Vital Signs: Vital Signs: Last Vital Signs Temp 98.3 F 12/14/22 03:31 Pulse 79 12/14/22 03:31 Resp 18 12/14/22 03:31 BP 168/76 H 12/14/22 03:31 Pulse Ox 97 12/14/22 03:31 O2 Del Method 12/14/22 03:31 BMI result Body Mass Index 28.5 General: AO X 3, no acute distress Resp: CTA bilateral, no accessory muscles used CVS: S1,S2,RRR GI: soft, non tender, non distended Neuro: motor grossly intact, alert Psych: appropriate affect, appropriate insight Objective Data Active Medications Acetaminophen (Acetaminophen 325 Mg Tablet) 650 mg PO Q6H PRN PRN Reason: Pain, Mild (Pain Scale 1-3) Dextrose (Dextrose 50 % 25 Gm/50 Ml Syringe) 25 gm IVPUSH Q15M PRN; Protocol PRN Reason: per Hypoglycemia Standing Ord. Enoxaparin Sodium (Enoxaparin Sodium 40 Mg/0.4 Ml Syringe) 40 mg SUBCUT Q24H [facility] Last Admin: 12/13/22 22:48 Dose: 40 mg Documented By: ISAURO Glucose (Glucose Gel 15 Gm Gel..Gram.) 15 gm PO Q15M PRN; Protocol PRN Reason: per Hypoglycemia Standing Ord. Ceftriaxone Sodium 1 gm/ (Sodium Chloride) 50 mls @ 100 mls/hr IV Q24H [facility] Insulin Human Lispro (Insulin Lispro 100 Unit/Ml 3 Ml Vial) 0 unit SUBCUT QIDACHS [facility]; Protocol Last Admin: 12/14/22 07:36 Dose: Not Given Documented By: DONVOAN Non-Admin Reason: No Insulin Coverage Melatonin (Melatonin 3 Mg Tablet) 6 mg PO BEDTIME PRN PRN Reason: Insomnia Metoprolol Tartrate (Metoprolol Tartrate 50 Mg Tablet) 50 mg PO BID [facility]; Protocol Non-Formulary Medication (Simvastatin) 1 tab PO QPM [facility] Ondansetron HCl (Ondansetron Hcl 4 Mg/2 Ml Vial) 4 mg IVPUSH Q8H PRN PRN Reason: Nausea and Vomiting Pharmacy Consult (Consult Rx Perform Med Rec) 1 each MISCELLANE ONCE PRN PRN Reason: Consult order Sodium Chloride (0.9 % Sodium Chloride Flush 3 Ml Syringe) 3 ml IVFLUSH QSHIFT [facility] Last Admin: 12/14/22 07:42 Dose: 3 ml Documented By: DONOVAN Labs 12/14/22 06:07 12/14/22 06:07 Labs: Laboratory Results - last 24 hr 12/13/22 12/13/22 12/13/22 19:48 20:00 20:00 MCV MCH MCHC RDW Plt Count MPV Immature Gran % (Auto) Neut % (Auto) Lymph % (Auto) [place] % (Auto) Eos % (Auto) Baso % (Auto) Lymph # (Auto) [place] # (Auto) Eos # (Auto) Baso # (Auto) Abs Immat Gran (auto) Absolute Neuts (auto) Absolute Nucleated RBC Nucleated RBC % (auto) Smear Tech's Comments Anion Gap 14 Estim Creat Clear Calc 50.2 Estimated GFR > 60 POC Glucose 162 H Random Glucose 152 H Lactic Acid 1.5 Calcium 9.1 Magnesium 1.6 Total Bilirubin 0.9 AST 15 ALT 10 Alkaline Phosphatase 72 Troponin I High Sens B-Natriuretic Peptide Total Protein 6.6 Albumin 3.8 Urine Color Urine Appearance Urine pH Ur Specific [place] Urine Protein Urine Glucose (UA) Urine Ketones Urine Blood Urine Nitrite Ur Leukocyte Esterase Urine RBC Urine WBC Ur Squamous Epith Cells Urine Bacteria Hyaline Casts Urine Opiates Screen Urine Fentanyl Screen Ur Barbiturates Screen Ur Phencyclidine Scrn Ur Amphetamines Screen U Benzodiazepines Scrn Urine Cocaine Screen U Marijuana (THC) Screen Ethyl Alcohol COVID-19 ([facility]) COVID-19 Clin Com Influenza Type A ([facility]) Influenza Type B ([facility]) Influenza A & B Note 12/13/22 12/13/22 12/13/22 20:00 20:00 20:00 MCV MCH MCHC RDW Plt Count MPV Immature Gran % (Auto) Neut % (Auto) Lymph % (Auto) [place] % (Auto) Eos % (Auto) Baso % (Auto) Lymph # (Auto) [place] # (Auto) Eos # (Auto) Baso # (Auto) Abs Immat Gran (auto) Absolute Neuts (auto) Absolute Nucleated RBC Nucleated RBC % (auto) Smear Tech's Comments Anion Gap Estim Creat Clear Calc Estimated GFR POC Glucose Random Glucose Lactic Acid Calcium Magnesium Total Bilirubin AST ALT Alkaline Phosphatase Troponin I High Sens B-Natriuretic Peptide 284 H Total Protein Albumin Urine Color Urine Appearance Urine pH Ur Specific [place] Urine Protein Urine Glucose (UA) Urine Ketones Urine Blood Urine Nitrite Ur Leukocyte Esterase Urine RBC Urine WBC Ur Squamous Epith Cells Urine Bacteria Hyaline Casts Urine Opiates Screen Urine Fentanyl Screen Ur Barbiturates Screen Ur Phencyclidine Scrn Ur Amphetamines Screen U Benzodiazepines Scrn Urine Cocaine Screen U Marijuana (THC) Screen Ethyl Alcohol < 10 COVID-19 ([facility]) Negative COVID-19 Clin Com See Note Influenza Type A ([facility]) Influenza Type B ([facility]) Influenza A & B Note 12/13/22 12/13/22 12/13/22 20:07 20:07 20:09 MCV MCH MCHC RDW Plt Count MPV Immature Gran % (Auto) Neut % (Auto) Lymph % (Auto) [place] % (Auto) Eos % (Auto) Baso % (Auto) Lymph # (Auto) [place] # (Auto) Eos # (Auto) Baso # (Auto) Abs Immat Gran (auto) Absolute Neuts (auto) Absolute Nucleated RBC Nucleated RBC % (auto) Smear Tech's Comments Anion Gap Estim Creat Clear Calc Estimated GFR POC Glucose Random Glucose Lactic Acid Calcium Magnesium Total Bilirubin AST ALT Alkaline Phosphatase Troponin I High Sens 56.6 H* B-Natriuretic Peptide Total Protein Albumin Urine Color Yellow Urine Appearance Cloudy Urine pH 7.0 Ur Specific [place] 1.010 Urine Protein 100 (2+) H Urine Glucose (UA) Negative Urine Ketones Trace Urine Blood Moderate (2+) H Urine Nitrite Positive H Ur Leukocyte Esterase Moderate (2+) H Urine RBC 11-20 H Urine WBC >50 H Ur Squamous Epith Cells 0-2 Urine Bacteria 4+ Hyaline Casts 0-2 Urine Opiates Screen Urine Fentanyl Screen Ur Barbiturates Screen Ur Phencyclidine Scrn Ur Amphetamines Screen U Benzodiazepines Scrn Urine Cocaine Screen U Marijuana (THC) Screen Ethyl Alcohol COVID-19 ([facility]) COVID-19 Clin Com Influenza Type A ([facility]) Negative Influenza Type B ([facility]) Negative Influenza A & B Note See Note 12/13/22 12/13/22 12/14/22 20:36 20:36 06:07 MCV 86.0 87.7 MCH 29.5 29.8 MCHC 34.3 34.0 RDW 12.7 12.6 Plt Count 188 176 MPV 8.8 L 8.9 L Immature Gran % (Auto) 0.4 0.4 Neut % (Auto) 91.5 H 80.4 H Lymph % (Auto) 3.8 L 11.2 L [place] % (Auto) 4.0 7.4 Eos % (Auto) 0.1 0.2 Baso % (Auto) 0.2 0.4 Lymph # (Auto) 0.4 L 1.1 L [place] # (Auto) 0.5 0.7 Eos # (Auto) 0.0 0.0 Baso # (Auto) 0.0 0.0 Abs Immat Gran (auto) 0.05 H 0.04 H Absolute Neuts (auto) 10.4 H 7.7 Absolute Nucleated RBC 0.000 0.000 Nucleated RBC % (auto) 0.0 0.0 Smear Tech's Comments VERIFIED Anion Gap Estim Creat Clear Calc Estimated GFR POC Glucose Random Glucose Lactic Acid Calcium Magnesium Total Bilirubin AST ALT Alkaline Phosphatase Troponin I High Sens B-Natriuretic Peptide Total Protein Albumin Urine Color Urine Appearance Urine pH Ur Specific [place] Urine Protein Urine Glucose (UA) Urine Ketones Urine Blood Urine Nitrite Ur Leukocyte Esterase Urine RBC Urine WBC Ur Squamous Epith Cells Urine Bacteria Hyaline Casts Urine Opiates Screen Not Detected Urine Fentanyl Screen Not Detected Ur Barbiturates Screen Not Detected Ur Phencyclidine Scrn Not Detected Ur Amphetamines Screen Not Detected U Benzodiazepines Scrn Not Detected Urine Cocaine Screen Not Detected U Marijuana (THC) Screen Not Detected Ethyl Alcohol COVID-19 ([facility]) COVID-19 Clin Com Influenza Type A ([facility]) Influenza Type B ([facility]) Influenza A & B Note 12/14/22 12/14/22 12/14/22 06:07 06:07 07:19 MCV MCH MCHC RDW Plt Count MPV Immature Gran % (Auto) Neut % (Auto) Lymph % (Auto) [place] % (Auto) Eos % (Auto) Baso % (Auto) Lymph # (Auto) [place] # (Auto) Eos # (Auto) Baso # (Auto) Abs Immat Gran (auto) Absolute Neuts (auto) Absolute Nucleated RBC Nucleated RBC % (auto) Smear Tech's Comments Anion Gap 10 L Estim Creat Clear Calc 60.5 Estimated GFR > 60 POC Glucose 124 H Random Glucose 115 Lactic Acid Calcium 8.5 D Magnesium Total Bilirubin AST ALT Alkaline Phosphatase Troponin I High Sens 374.1 H* D B-Natriuretic Peptide Total Protein Albumin Urine Color Urine Appearance Urine pH Ur Specific [place] Urine Protein Urine Glucose (UA) Urine Ketones Urine Blood Urine Nitrite Ur Leukocyte Esterase Urine RBC Urine WBC Ur Squamous Epith Cells Urine Bacteria Hyaline Casts Urine Opiates Screen Urine Fentanyl Screen Ur Barbiturates Screen Ur Phencyclidine Scrn Ur Amphetamines Screen U Benzodiazepines Scrn Urine Cocaine Screen U Marijuana (THC) Screen Ethyl Alcohol COVID-19 ([facility]) COVID-19 Clin Com Influenza Type A ([facility]IC[facility]O) Influenza Type B ([facility]) Influenza A & B Note Microbiology Microbiology Results: Microbiology 12/13/22 20:00 Blood Culture - Preliminary Blood - Venous Prelim: GNR Gram Stain only Assessment and Plan (1) Rigors: Status: Acute Plan 77-year-old female with pertinent history of byp-glmtyap-sespygqzx diabetes mellitus, mood disorder, essential hypertension, mixed hyperlipidemia who presented to the emergency department for evaluation of fever and chills. sepsis and metabolic encephalopathy due to UTI complicated by GNR bacteremia rocephin, follow up cultures insulin HTN metoprolol hld statin elevated troponin likely demand ischemia DVT prophylaxis: Lovenox 40 mg daily Full code reason for continued hospitalization:awaiting defervesensce Time Spent With Patient Time: Total time managing care of this patient today ____ minutes. Quality Stroke Does the patient have a stroke diagnosis?: No VTE Prior VTE?: No VTE Risk Level:: Medical - moderate - high VTE Device Contraindication: Treatment Not Indicated VTE Drug Contraindication: N/A - Med Ordered
--- NOTE | 2022-12-14 08:44 | PHA.MEDREC ---
Pharmacy Consult ? Medication Reconciliation Pharmacy has completed the medication reconciliation. Spoke to patient about medications and she confirmed medications that she's on when I read her the claim history. She also states that she does NOT have simvastatin allergy even though listed in her chart that she has rhabdo at 40 mg (her current dose for the past year is 40 mg daily).
[2022-12-14] MEDS: Metoprolol Tartrate 50 MG TABLET PO ×2 (09:12→19:59)
[2022-12-14 11:28] LABS: Glucose, Whole Blood 98 mg/dL (60-115)
--- NOTE | 2022-12-14 13:27 | MHC.CM.PN ---
PT REPORTS SHE LIVES ALONE BUT HER SON LIVES ON THE SECOND FLOOR OF HER TWO FAMILY HOME PT IS INDEPENDENT WITH CARE, USES NO DME AND HAS NO SERVICES PT REPORTS SHE IS COVID VAX WITH [facility] X 3 PCP: LUKE WOODS SHE COMPLETED A HCP TODAY NAMING HER SON, GABRIELLA, HER AGENT IMM DELIVERED CURRENT DC PLAN IS HOME WITH NO SERVICES PTS SON TO TRANSPORT
[2022-12-14 16:00] VITALS: BP 170/78; PULSE 65; RESP 18; TEMP 36.9; O2SAT 97
[2022-12-14 16:25] LABS: Glucose, Whole Blood 140 mg/dL (60-115)
[2022-12-14] MEDS: Acetaminophen 325 MG TABLET 650 MG PO (19:28)
[2022-12-14] MEDS: Atorvastatin Calcium 20 MG TABLET PO (19:59)
[2022-12-14 20:00] VITALS: BP 168/60; PULSE 62; RESP 18; TEMP 37.4; O2SAT 97
[2022-12-14] MEDS: cefTRIAXone sodium 1 GM in 0.9 % Sodium Chloride 50 ML IV (20:00)
[2022-12-14 20:14] LABS: Glucose, Whole Blood 141 mg/dL (60-115)
[2022-12-14] MEDS: Enoxaparin Sodium 40 MG/0.4 ML SYRINGE SUBCUT (20:52)
[2022-12-15 03:37] VITALS: BP 164/68; PULSE 80; RESP 18; TEMP 37.5; O2SAT 94
[2022-12-15 06:10] LABS: Hemoglobin 12.8 g/dl (12.0-16.0); Mean Corpuscular HGB Conc 33.7 g/dl (31.0-35.0); Mean Corpuscular Hemoglobin 29.6 pg (27.0-33.0); Mean Platelet Volume 9.5 fL (9.4-12.3); Platelet Count 181 X10*3/uL (160-400); Red Blood Count 4.32 X10*6/uL (4.20-5.50); Red Cell Distribution Width 12.4 % (11.0-16.0); White Blood Count 7.1 X10*3/uL (4.8-10.8)
[2022-12-15 06:33] LABS: Anion Gap 16 (12-20); Blood Urea Nitrogen 15 mg/dL (9-16); Calcium 8.5 mg/dL (8.4-10.2); Carbon Dioxide 23 mmol/L (22-29); Chloride 101 mmol/L (96-108); Creatinine Clr Calc Pharmacy 62.2; Estimated Glomerular Filt Rate > 60; Glucose Fasting 117 mg/dL (60-99); Potassium 3.8 mmol/L (3.3-5.1); Sodium 136 mmol/L (135-145)
[2022-12-15 06:56] VITALS: BP 160/82; PULSE 67; RESP 18; TEMP 36.6; O2SAT 93
[2022-12-15 07:13] LABS: Glucose, Whole Blood 129 mg/dL (60-115)
[2022-12-15] MEDS: Metoprolol Tartrate 50 MG TABLET PO (07:50)
[2022-12-15] MEDS: 0.9 % Sodium Chloride Flush 3 ML SYRINGE IVFLUSH (07:50)
--- NOTE | 2022-12-15 08:04 | PM.DS ---
DS: Providers Provider Date of Service: 12/15/22 Date of admission: 12/13/22 21:35 Primary care physician: Sd Quintero MD DS: Diagnosis Discharge Diagnosis (1) Rigors: Status: Acute DS: Summary Hospital Course Hospital Course: from initial hpi: This is a 77-year-old female with pertinent history of nta-wefjtzv-eqtzewsfc diabetes mellitus, mood disorder, essential hypertension, mixed hyperlipidemia who presents to the emergency department for evaluation of fever and chills.? Patient states she had chills with shaking throughout the day.? Also had a febrile episode during the day.? Patient does report generalized fatigue and decreased p.o. intake.? On review of systems, she endorses dysuria and urinary urgency with increased frequency.? Niece at bedside also reported some confusion throughout the day which is unlike her.? Patient denies nausea, vomiting, chest discomfort, palpitations, shortness of breath, abdominal pain, changes in bowel habits. The emergency department, patient was found to have UTI and was SIRS + hospital course: Patient was admitted for sepsis and metabolic encephalopathy due to urinary tract infection complicated by bacteremia. patient was treated with IV ceftriaxone and sepsis resolved. Patient is feeling back to baseline. Cultures grew E coli . She will be discharged on 7 more days of cefuroxime. For diabetes she was treated with insulin. For hypertension sugars continue metoprolol. For per lipidemia she was continued on statin. Patient was noted to have mildly elevated troponins this was likely demand ischemia no evidence of ACS. Patient is feeling better will be discharged home. Time Spent with Patient Time attestation: Total time managing care of this patient today ____ minutes. Discharge coordination time: Greater than 30 minutes Quality: Safe Use of Opioids Does Pt have an Active Cancer Diagnosis on the Problem List?: No Quality: Stroke Does the patient have a stroke diagnosis?: No Physical Exam Vital Signs: Vital Signs: Last Vital Signs Temp 98 F 12/15/22 06:56 Pulse 67 12/15/22 06:56 Resp 18 12/15/22 06:56 BP 160/82 H 12/15/22 06:56 Pulse Ox 93 12/15/22 06:56 O2 Del Method 12/15/22 06:56 BMI result Body Mass Index 28.5 General: AO X 3, no acute distress Resp: CTA bilateral, no accessory muscles used CVS: S1,S2,RRR GI: soft, non tender, non distended Neuro: motor grossly intact, alert Psych: appropriate affect, appropriate insight DS: Data Data Completed and Pending Labs on day of discharge: Laboratory Results - last 24 hr 12/14/22 12/14/22 12/14/22 11:11 16:21 19:50 WBC RBC Hgb Hct MCV MCH MCHC RDW Plt Count MPV Absolute Nucleated RBC Nucleated RBC % (auto) Sodium Potassium Chloride Carbon Dioxide Anion Gap BUN Creatinine Estim Creat Clear Calc Estimated GFR POC Glucose 98 140 H 141 H Fasting Glucose Calcium 12/15/22 12/15/22 12/15/22 04:58 04:58 06:54 WBC 7.1 RBC 4.32 Hgb 12.8 Hct 38.0 MCV 88.0 MCH 29.6 MCHC 33.7 RDW 12.4 Plt Count 181 MPV 9.5 Absolute Nucleated RBC 0.000 Nucleated RBC % (auto) 0.0 Sodium 136 Potassium 3.8 Chloride 101 Carbon Dioxide 23 Anion Gap 16 BUN 15 Creatinine 0.72 Estim Creat Clear Calc 62.2 Estimated GFR > 60 POC Glucose 129 H Fasting Glucose 117 H Calcium 8.5 Preliminary micro results at discharge 12/13/22 20:00 Blood Culture - Preliminary Blood - Venous No growth after 24 hours. 12/13/22 20:00 Blood Culture - Preliminary Blood - Venous Prelim: GNR Gram Stain only Discharge Plan Discharge Anticipated Discharge Date/Time: 12/15/22 08:02 Patient Disposition: Home, Self-Care Discharge Diagnosis: sepsis, uti Referrals: Po,Sd Leo MD [Primary Care Provider] - 1 Week Discharge Medications: New cefuroxime axetil 500 mg tablet 500 mg PO BID Qty: 14 0RF Continued cyanocobalamin (vitamin B-12) 1,000 mcg capsule 1,000 mcg PO DAILY Qty: 30 3RF (DME) lancets [FreeStyle Lancets] 28 gauge misc See Rx Instructions .ROUTE .MEDSUPPLY Qty: 200 3RF Rx Instructions: As directed check BS BID (DME) FreeStyle Lite Strips Strip See Rx Instructions .ROUTE .MEDSUPPLY Qty: 200 3RF Rx Instructions: As directed check the BS twice daily Vitamin D3 1 tab PO DAILY vitamin [id number] acid 1 tab PO DAILY simvastatin 40 mg tablet 40 mg PO BEDTIME cetirizine [Zyrtec] 10 mg tablet 10 mg PO DAILY PRN (Reason: Allergy Symptoms) (DME) blood-glucose meter [FreeStyle Lite Meter] Kit See Rx Instructions .ROUTE .MEDSUPPLY Qty: 1 0RF Rx Instructions: As directed (DME) blood pressure monitor [Blood Pressure Kit] Kit See Rx Instructions .ROUTE .MEDSUPPLY Qty: 1 0RF Rx Instructions: As directed metoprolol tartrate 50 mg tablet 50 mg PO BID 30 Days Qty: 60 3RF Rx Instructions: bradycardia changed 06/2022 from 100 mg to 50 mg cholecalciferol (vitamin D3) 25 mcg (1,000 unit) capsule 25 mcg PO DAILY metformin 500 mg tablet 500 mg PO BID Qty: 180 6RF Discharge Orders: Discharge Order (Routine); Ordered 12/15/22 Ordered By: Uriel Tenorio Diet: Advance to usual diet Activity on Discharge: As tolerated Stand Alone Forms: Patient Portal Discharge page Care Plan Goals: recovery Health Concerns: uti Plan of Treatment: 7 more days ceftin Assessment: see above
--- NOTE | 2022-12-15 08:51 | MHC.CM.PN ---
PT MEDICALLY CLEARED FOR D/C HOME SELF-CARE W/FAMILY FOR TRANSPORT
== END 2022-12-15 10:42 | disposition home or self-care (01) | DRG 871 ==
LOC: HO.ED 21:35 → HO.EDOVER 21:44 → HO.S3 12-14 00:39
PROVIDERS: Physician Assistant; Admitting Provider Student in an Organized Health Care Education/Training Program; Emergency Provider Emergency Medicine Emergency Medical Services; PCP Internal Medicine; Visit Provider Internal Medicine
DX: A41.9 Sepsis, unspecified organism (principal); G93.41 Metabolic encephalopathy; N39.0 Urinary tract infection, site not specified; I24.8 Other forms of acute ischemic heart disease; E78.2 Mixed hyperlipidemia; I10 Essential (primary) hypertension; B96.20 Unspecified Escherichia coli [E. coli] as the cause of diseases classified elsewhere; E11.9 Type 2 diabetes mellitus without complications; J44.9 Chronic obstructive pulmonary disease, unspecified; Z20.822 Contact with and (suspected) exposure to COVID-19; Z88.2 Allergy status to sulfonamides; Z88.8 Allergy status to other drugs, medicaments and biological substances; Z79.84 Long term (current) use of oral hypoglycemic drugs; Z79.899 Other long term (current) drug therapy
CPT/HCPCS: 36415; 70450; 71045; 80048; 80053; 80307; 81001; 82077; 82947; 83605; 83735; 83880; 84484; 85025; 85027; 87040; 87077; 87086; 87088; 87186; 87205; 87502; 87635; 93005; 99285; J0696; J1650

== ENCOUNTER 2023-04-16 07:50 | Outpatient (REF) | payer MEDICARE, MEDICAID, SELFPAY ==
[2023-04-16 08:01] LABS: MANUAL DIFF FLAG NO
[2023-04-16 08:27] LABS: Basophils Absolute Auto 0.1 X10*3/uL (0.0-0.2); Basophils Percent Auto 0.8 % (0-2); Eosinophils Absolute Auto 0.2 X10*3/uL (0.0-0.4); Eosinophils Percent Auto 2.1 % (0-4); Hematocrit 43.4 % (37.0-47.0); Imm Gran Abs Auto 0.02 X10*3/uL (0.00-0.03); Imm Gran Pct Auto 0.3 % (0.0-0.4); Lymphocytes Absolute Auto 1.8 X10*3/uL (1.2-4.9); Lymphocytes Percent Auto 24.7 % (20-40); Mean Corpuscular HGB Conc 34.6 g/dl (31.0-35.0); Mean Corpuscular Hemoglobin 29.9 pg (27.0-33.0); Mean Corpuscular Volume 86.6 fL (80.0-98.0); Mean Platelet Volume 8.7 fL (9.4-12.3); Monocytes Absolute Auto 0.6 X10*3/uL (0.1-1.2); Monocytes Percent Auto 7.9 % (2-11); Neutrophils Absolute Auto 4.7 x10*3/uL (2.0-8.3); Neutrophils Percent Auto 64.2 % (45-73); Platelet Count 264 X10*3/uL (160-400); Red Blood Count 5.01 X10*6/uL (4.20-5.50); Red Cell Distribution Width 13.2 % (11.0-16.0); White Blood Count 7.3 X10*3/uL (4.8-10.8)
[2023-04-16 09:06] LABS: Alanine Aminotransferase 11 U/L (0-31); Alkaline Phosphatase 84 U/L (39-117); Anion Gap 12 (12-20); Aspartate Amino Transferase 17 U/L (5-31); Bilirubin Total 0.7 mg/dL (0.0-1.0); Blood Urea Nitrogen 12 mg/dL (9-16); Calcium 9.9 mg/dL (8.4-10.2); Carbon Dioxide 31 mmol/L (22-29); Chloride 92 mmol/L (96-108); Cholesterol 190 mg/dL; Estimated Glomerular Filt Rate > 60; Glucose Fasting 137 mg/dL (60-99); HDL Cholesterol 57 mg/dL; LDL Cholesterol Calculated 115 mg/dl; Potassium 5.4 mmol/L (3.3-5.1); Sodium 130 mmol/L (135-145); Total Protein 7.3 g/dL (6.5-8.0); Triglycerides 91 mg/dL
[2023-04-16 09:27] LABS: Folate 7.2 ng/mL (> or = 4.0); Free T4 (Free Thyroxine) 1.13 ng/dL (0.71-1.85); Vitamin B12 1794 pg/mL (200-900); Vitamin D 25-OH Total 37.7 ng/mL (>30)
[2023-04-16 10:00] LABS: Creatinine Urine 49.37 mg/dL; Microalbum/Creatinine Ratio Ur 32.4 ug/mg cr
[2023-04-18 13:53] LABS: LDL Cholesterol Direct 105 mg/dL (<100)
== END 2023-04-16 07:51 | disposition home or self-care (01) ==
LOC: HO.LAB 07:50
PROVIDERS: PCP Internal Medicine; Visit Provider Internal Medicine
DX: E11.9 Type 2 diabetes mellitus without complications (principal); E53.8 Deficiency of other specified B group vitamins; E55.9 Vitamin D deficiency, unspecified
CPT/HCPCS: 36415; 80053; 80061; 82043; 82306; 82607; 82746; 83721; 84439; 84443; 85025

== ENCOUNTER 2023-12-10 09:08 | Outpatient (AMB) | payer MEDICARE, MEDICAID, SELFPAY ==
[2023-12-10 09:11] VITALS: BP 140/82; PULSE 73; O2SAT 97; BMI 30.4
--- NOTE | 2023-12-10 09:11 | A.OFFPC_ITS ---
Vital Signs 12/10/23 09:11 Height 5 ft 2 in Weight 166 lb 0.4 oz BMI 30.4 BP 140/82 H Blood Pressure Location Lt brachial Position Sitting Pulse 73 Pulse Source Pulse Oximeter Pulse Oximetry (%) 97 Oxygen Delivery Method Room Air Intake Visit Reasons: DM, HTN, HLD Dictating Transcribing Machine Servicer Required: No Allergies amlodipine Allergy (Unknown, Verified 12/10/23 09:11) leg swelling irbesartan Allergy (Unknown, Verified 12/10/23 09:11) rectal bleeding iron Allergy (Unknown, Verified 12/10/23 09:11) cough lisinopril Allergy (Unknown, Verified 12/10/23 09:11) unknown simvastatin Allergy (Unknown, Verified 12/10/23 09:11) at 40 mg cramps Sulfa (Sulfonamide Antibiotics) [SULFA (SULFONAMIDE ANTIBIOTICS)] Allergy (Unknown, Verified 12/10/23 09:11) HIVES Influenza Virus Vaccines Adverse Reaction (Intermediate, Verified 12/10/23 09:11) Unknown Medication List - Last Reconciled 12/10/23 by Sd Quintero MD blood pressure monitor (Blood Pressure Kit) As directed blood pressure monitor As directed blood sugar diagnostic (FreeStyle Lite Strips) As directed check the BS twice daily blood-glucose meter (FreeStyle Lite Meter kit) As directed cetirizine (Zyrtec) 10 mg PO DAILY PRN cholecalciferol (vitamin D3) 25 mcg PO DAILY cyanocobalamin (vitamin B-12) 1,000 mcg PO DAILY hydrochlorothiazide 25 mg PO DAILY 90 days lancets (FreeStyle Lancets) As directed check BS BID metformin 500 mg PO BID metoprolol tartrate 50 mg PO BID 30 days simvastatin 40 mg PO BEDTIME [vitamin [id number] acid 1 tab PO DAILY] [Vitamin D3 1 tab PO DAILY] Tobacco use date assessed: 12/10/23 Fall risk assessment: No Falls in past year Last assessed Fall Risk: 12/10/23 Dental Screening Dental Screen Date: 12/10/23 HPI DM, HTN, HLD HPI Details 78-year-old obese female smoker with sea betes mellitus COPD hypercholesterolemia hypertension and generalized anxiety disorder last seen in January 2023 comes in for follow-up. Blood work requested patient has declined colonoscopy mammogram is due April patient was seen by the nurse practitioner. Review of the notes March 2023 last blood work elevated cholesterol. Noted weight gain. PAtient has an exercise machine. BP elevated and cholesterol elevated but decline new med [facility] Medical History Allergic rhinitis Colonoscopy refused COPD (chronic obstructive pulmonary disease) DM2 (diabetes mellitus, type 2) Hypercholesterolemia Hypertension Obesity (BMI 30-39.9) Post herpetic neuralgia Tobacco abuse Type 2 diabetes mellitus with hyperglycemia Vitamin D deficiency Surgical History Deviated septum History of cataract surgery Family History Father No problems noted. Mother No problems noted. Maternal Uncle Diabetes Maternal Uncle Heart problem Social History Household Members: None Housing: Apartment Do you presently have visiting nurse or other home services: No Alcohol intake: never Patient Tobacco Use Status: Current everyday Tobacco user Tobacco use type: Cigarette Cigarettes Per Day: 10 e-Cigarette/Vaping Use: Never Used Second Hand Smoke Exposure: No service: No Current occupational status: retired Cognitive needs: No Hearing needs: No Vision needs: No Questionnaire PHQ-9 Over the last 2 weeks, how often have you been bothered by any of the following problems? 1. Little interest or pleasure in doing things: not at all 2. Feeling down, depressed, or hopeless: not at all 3. Trouble falling or staying asleep, or sleeping too much: not at all 4. Feeling tired or having little energy: not at all 5. Poor appetite or overeating: not at all 6. Feeling bad about yourself - or that you are a failure or have let yourself or your family down: not at all 7. Trouble concentrating on things, such as reading the newspaper or watching television: not at all 8. Moving or speaking so slowly that other people could have noticed. Or the opposite - being so fidgety or restless that you have been moving around a lot more than usual: not at all 9. Thoughts that you would be better off or of hurting yourself in some way: not at all Total score: 0 Depression Screening Interpretation: Negative Depression Screening Done: Yes 91139 - PHQ-9 Billing: Yes Source: Developed by Drs. South Tam, Valorie Saldana, Alfred Malhotra and colleagues, with an educational lia from [employer]. Thrive Questionnaire Date Thrive assessed: 12/23/22 AUDIT C Alcohol Use Questionnaire (AUDIT-C) 1. How often do you have a drink containing alcohol?: Never 3. How often do you have six or more drinks on one occasion?: Never Total Score: 0 Score Reviewed/Action Taken: No ALYSIA-7 AMB Questionnaire ALYSIA-7 Date ALYSIA - 7 assessed: 12/10/23 Feeling nervous, anxious, or on edge: 0 = Not at all Not being able to stop or control worryin = Not at all Worrying too much about different things: 0 = Not at all Trouble relaxin = Not at all Being so restless that it is hard to sit still: 0 = Not at all Becoming easily annoyed or irritable: 0 = Not at all Feeling afraid as if something awful might happen: 0 = Not at all Total ALYSIA-7 score (0-4 normal; 5-9 mild; 10-14 moderate; 15-21 severe): 0 Source: Developed by Drs. South Tam, Valorie Saldana, Alfred Malhotra and colleagues, with an educational lia from [employer]. Physical exam (Primary Care) Vital Signs: Last Vital Signs Pulse 73 12/10/23 09:11 BP 140/82 H 12/10/23 09:11 Pulse Ox 97 12/10/23 09:11 Oxygen Delivery Method Room Air 12/10/23 09:11 BMI result Body Mass Index 30.4 Tobacco/Smoking Status: Tobacco use Status Tobacco use date assessed 12/10/23 12/10/23 09:18 Patient Tobacco Use Status Current everyday Tobacco 12/10/23 09:18 Tobacco use type Cigarette 12/10/23 09:18 e-Cigarette/Vaping Use Never Used 12/10/23 09:18 PHQ-9: PHQ-9 Score PHQ-9: Total score 0 12/10/23 09:18 Depression Screening Interpretation: Negative Thrive Assessment: Date of Thrive Assessment Date Thrive assessed 12/23/22 12/10/23 09:18 Const General: alert; No acute distress Eyes Conjunctivae: conjunctivae normal Resp Auscultation: clear to auscultation bilaterally Cardio Rate: regular rate Rhythm: regular rhythm GI Inspection: Yes normal to inspection Extrem General: Yes normal to inspection and No edema Results AMB Hemoglobin A1c AMB Hemoglobin A1c 7.1 % Last Edit by VÍCTOR Smith on 12/10/23 09:21 Results Reviewed Results Reviewed: Laboratory Last Values Hgb A1c (Clinic) 7.1 % (4.0-6.0) H 12/10/23 09:18 Assessment and Plan Assessment & Plan (1) Type 2 diabetes mellitus with hyperglycemia: Comment: Dr. Montilla Code(s): E11.65 - Type 2 diabetes mellitus with hyperglycemia Qualifiers: Diabetes mellitus boom stick worker insulin use: without shelter use Qualified Code(s): E11.65 - Type 2 diabetes mellitus with hyperglycemia Plan: Decrease the amount of carbohydrate intake, pasta, bread, rice and potatoes are all sugar and that is aside from all the sweet stuff, remember that fruits are good but they are Sweet also. Hemoglobin A1c goal of less than 7.0 patient is presently on metformin 500 mg twice a day. plan to do exercise decline med (2) COPD (chronic obstructive pulmonary disease): Code(s): J44.9 - Chronic obstructive pulmonary disease, unspecified Qualifiers: COPD type: emphysema Emphysema type: panlobular Qualified Code(s): J43.1 - Panlobular emphysema Plan: Patient is advised strongly to stop smoking! (3) Hypercholesterolemia: Code(s): E78.00 - Pure hypercholesterolemia, unspecified Plan: Avoid fried foods, chicken skin, eggs, butter margarine, pastries and meat. Be it pork or beef they have a lot of cholesterol LDL goal of less than 100. Patient is not under control on simvastatin 40 mg once a day. blood work advised , decline new med (4) Hypertension: Code(s): I10 - Essential (primary) hypertension Qualifiers: Hypertension type: essential hypertension Qualified Code(s): I10 - Essential (primary) hypertension Plan: Continue with blood pressure medication. Decrease salt intake and exercise currently on metoprolol 50 mg twice a day hydrochlorothiazide 25 mg once a day had problems with lisinopril and irbesartan.. dedcline new med and will exercise (5) Obesity: Code(s): E66.9 - Obesity, unspecified Plan: Diet and exercise. will exercise (6) Tobacco abuse: Code(s): Z72.0 - Tobacco use Plan: Strongly advised to stop smoking! (7) Breast cancer screening by mammogram: Code(s): Z12.31 - Encounter for screening mammogram for malignant neoplasm of breast Plan: Mammogram reminded (8) Generalized anxiety disorder: Comment: declined referral to counselling Code(s): F41.1 - Generalized anxiety disorder Orders: Orders AMB Hemoglobin A1c Today E11.65 - Type 2 diabetes mellitus with hyperglycemia Lipid Panel Today E78.00 - Pure hypercholesterolemia, unspecified Comprehensive Met. 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
== END 2023-12-10 10:07 | disposition home or self-care (01) ==
PROVIDERS: PCP Internal Medicine; Visit Provider Internal Medicine
DX: E11.65 Type 2 diabetes mellitus with hyperglycemia (principal); E66.9 Obesity, unspecified; Z68.30 Body mass index [BMI] 30.0-30.9, adult; J43.1 Panlobular emphysema; E78.00 Pure hypercholesterolemia, unspecified; I10 Essential (primary) hypertension; Z72.0 Tobacco use; Z12.31 Encounter for screening mammogram for malignant neoplasm of breast; F41.1 Generalized anxiety disorder
CPT/HCPCS: 83036; 99214

== ENCOUNTER 2023-12-25 09:00 | Outpatient (REF) | payer MEDICARE, MEDICAID, SELFPAY ==
[2023-12-25 10:48] LABS: Alanine Aminotransferase 14 U/L (0-31); Albumin Level 4.4 g/dL (3.5-5.0); Alkaline Phosphatase 84 U/L (39-117); Anion Gap 13 (12-20); Aspartate Amino Transferase 18 U/L (5-31); Bilirubin Total 0.6 mg/dL (0.0-1.0); Blood Urea Nitrogen 10 mg/dL (9-16); Calcium 9.9 mg/dL (8.4-10.2); Carbon Dioxide 32 mmol/L (22-29); Chloride 87 mmol/L (96-108); Cholesterol 191 mg/dL (<200); Estimated Glomerular Filt Rate > 60; Glucose Random 145 mg/dL (60-115); HDL Cholesterol 66 mg/dL (>40); LDL Cholesterol Calculated 106 mg/dL (<100); Potassium 5.3 mmol/L (3.3-5.1); Sodium 127 mmol/L (135-145); Triglycerides 99 mg/dL (<150)
== END 2023-12-25 09:01 | disposition home or self-care (01) ==
LOC: HO.LAB 09:00
PROVIDERS: PCP Internal Medicine; Visit Provider Internal Medicine
DX: E78.00 Pure hypercholesterolemia, unspecified (principal); E87.5 Hyperkalemia
CPT/HCPCS: 36415; 80053; 80061

== ENCOUNTER 2024-01-15 08:59 | Outpatient (AMB) | payer MEDICARE, MEDICAID, SELFPAY ==
[2024-01-15 09:26] VITALS: BP 180/66; PULSE 67; O2SAT 97; BMI 30.6
--- NOTE | 2024-01-15 09:26 | HO.NEPHOV_ITS ---
HPI HPI Comments History of Present Illness Details I had the privilege of seeing Heather in consultation for hyponatremia and hyperkalemia on a backdrop of hypertension. She has no history of weight loss. She has a smoker. She denies any nausea, vomiting or diarrhea. She has been on hydrochlorothiazide. She has no history of hypoglycemia. She has no history of liver, kidney or heart failure. She has not having any depression and is not on any antidepressant medications. She has a diabetic. She has no weakness or mental status changes. She has no edema. Her blood pressure is not very controlled. She denies any other systemic symptoms. She feels well. [facility] Medical History Allergic rhinitis Colonoscopy refused COPD (chronic obstructive pulmonary disease) DM2 (diabetes mellitus, type 2) Hypercholesterolemia Hypertension Obesity (BMI 30-39.9) Post herpetic neuralgia Tobacco abuse Type 2 diabetes mellitus with hyperglycemia Vitamin D deficiency Surgical History Deviated septum History of cataract surgery Family History Father No problems noted. Mother No problems noted. Maternal Uncle Diabetes Maternal Uncle Heart problem Social History Household Members: None Housing: Apartment Do you presently have visiting nurse or other home services: No Alcohol intake: never Patient Tobacco Use Status: Current everyday Tobacco user Tobacco use type: Cigarette Cigarettes Per Day: 10 e-Cigarette/Vaping Use: Never Used Second Hand Smoke Exposure: No service: No Current occupational status: retired Cognitive needs: No Hearing needs: No Vision needs: No Vital Signs 01/15/24 09:26 Height 5 ft 2 in Weight 167 lb 8 oz BMI 30.6 BP 180/66 H Blood Pressure Location Lt brachial Position Sitting Pulse 67 Pulse Source Pulse Oximeter Pulse Oximetry (%) 97 Oxygen Delivery Method Room Air Physical Exam Vital Signs: Last Vital Signs Pulse 67 01/15/24 09:26 BP 180/66 H 01/15/24 09:26 Pulse Ox 97 01/15/24 09:26 Oxygen Delivery Method Room Air 01/15/24 09:26 BMI result Body Mass Index 30.6 Const General: comfortable and no acute distress Orientation/consciousness: patient oriented x3 HEENT Head: Yes normocephalic Mouth: Normal oral and palatal mucosa present Eyes EOM: EOMs intact bilaterally Neck Neck: Yes supple Resp Auscultation: clear to auscultation bilaterally Cardio Jugular venous distension: no JVD Rate: regular rate GI Palpation (GI): Soft to palpation Auscultation: normal bowel sounds General: Yes no CVA tenderness Back/Spine/Pelvis Back: no CVA tenderness Skin General skin exam: no rashes or lesions noted Neuro General: patient oriented x3 and moves all extremities Extrem General: Yes no pedal edema Assessment & Plan Assessment & Plan (1) Hyponatremia: Code(s): E87.1 - Hypo-osmolality and hyponatremia (2) Hyperkalemia: Code(s): E87.5 - Hyperkalemia (3) Hypertension: Code(s): I10 - Essential (primary) hypertension Qualifiers: Hypertension type: essential hypertension Qualified Code(s): I10 - Essential (primary) hypertension Plan Heather has euvolemic hyponatremia. She has been on hydrochlorothiazide which I discontinued. She does not have any hypovolemia or hypervolemia. She has no history of any hypotension, depression or taking antidepressant medications. She has not known to have any thyroid or adrenal issues. I started her on amlodipine 5 mg daily. She was asked to do urine and serum osmolality, serum calcium, random cortisol, thyroid function, urine sodium, serum immunofixation. I did not make any other medication changes today. All these have been discussed in detail. Answered all questions. Follow-up given. Orders: Orders Calcium Today E87.1 - Hypo-osmolality and hyponatremia, E87.5 - Hyperkalemia, I10 - Essential (primary) hypertension Sodium Urine Random Today E87.1 - Hypo-osmolality and hyponatremia, E87.5 - Hyperkalemia, I10 - Essential (primary) hypertension Osmolality Urine Today E87.1 - Hypo-osmolality and hyponatremia, E87.5 - Hyperkalemia, I10 - Essential (primary) hypertension Osmolality, Serum Today E87.1 - Hypo-osmolality and hyponatremia, E87.5 - Hyperkalemia, I10 - Essential (primary) hypertension TSH reflex Free T4 Today E87.1 - Hypo-osmolality and hyponatremia, E87.5 - Hyperkalemia, I10 - Essential (primary) hypertension Cortisol Random Today E87.1 - Hypo-osmolality and hyponatremia, E87.5 - Hyperkalemia, I10 - Essential (primary) hypertension Immunofixation Pnl, Serum Today E87.1 - Hypo-osmolality and hyponatremia, E87.5 - Hyperkalemia, I10 - Essential (primary) hypertension Medications: New amlodipine 5 mg PO DAILY 30 days 30 tabs 3RF Discontinued hydrochlorothiazide Discontinued Reason: Doctor's Order 25 mg PO DAILY 90 days 90 tabs 2RF I10 - Essential (primary) hypertension Coding Level of Care Code New Pt Level 4 (99718) Diagnoses Hyponatremia E87.1 Hyperkalemia E87.5 Essential hypertension I10 Hypertension type: essential hypertension Results Reviewed Nephrology Results: Hgb 15.0 g/dl (12.0-16.0) 04/16/23 WBC 7.3 X10*3/uL (4.8-10.8) 04/16/23 Plt Count 264 X10*3/uL (160-400) 04/16/23 Sodium 127 mmol/L (135-145) L 12/25/23 Potassium 5.3 mmol/L (3.3-5.1) H 12/25/23 Chloride 87 mmol/L (96-108) L 12/25/23 Carbon Dioxide 32 mmol/L (22-29) H 12/25/23 BUN 10 mg/dL (9-16) 12/25/23 Creatinine 0.83 mg/dL (0.5-1.4) 12/25/23 Calcium 9.9 mg/dL (8.4-10.2) 12/25/23 Urine Protein 100 (2+) mg/dL (Neg-Trace) H 12/13/22 Urine Creatinine 49.37 mg/dL 04/16/23
== END 2024-01-15 10:03 | disposition home or self-care (01) ==
PROVIDERS: PCP Internal Medicine; Visit Provider Internal Medicine Nephrology
DX: E87.1 Hypo-osmolality and hyponatremia (principal); E87.5 Hyperkalemia; I10 Essential (primary) hypertension
CPT/HCPCS: 99204

== ENCOUNTER → 2024-01-15 08:59 | Outpatient (BNVA) | payer MEDICARE, MEDICAID, SELFPAY | PROVIDERS: PCP Internal Medicine; Visit Provider Internal Medicine Nephrology | DX: E87.1 Hypo-osmolality and hyponatremia (principal); E87.5 Hyperkalemia; I10 Essential (primary) hypertension | CPT/HCPCS: 99202 ==

== ENCOUNTER 2024-02-02 09:01 | Outpatient (REF) | payer MEDICARE, MEDICAID, SELFPAY ==
[2024-02-02 10:25] LABS: Calcium 9.8 mg/dL (8.4-10.2)
[2024-02-02 10:39] LABS: Osmolality, Serum 292 mosm/kg (281-305)
[2024-02-02 10:44] LABS: Cortisol Random 11.7 ug/dL
[2024-02-02 10:47] LABS: TSH reflex Free T4 1.26 uIU/mL (0.32-4.0)
[2024-02-02 11:05] LABS: Osmolality Urine 292 mosm/kg (373-1093)
[2024-02-05 13:19] LABS: IgA 472 mg/dL (70-320); IgG 1543 mg/dL (600-1540); IgM 95 mg/dL (50-300)
== END 2024-02-02 09:02 | disposition home or self-care (01) ==
LOC: HO.LAB 09:01
PROVIDERS: PCP Internal Medicine; Visit Provider Internal Medicine Nephrology
DX: E87.1 Hypo-osmolality and hyponatremia (principal); E87.5 Hyperkalemia; I10 Essential (primary) hypertension
CPT/HCPCS: 36415; 82310; 82533; 82784; 83930; 83935; 84300; 84443; 86334

== ENCOUNTER 2024-02-03 11:01 | Outpatient (AMB) | payer MEDICARE, MEDICAID, SELFPAY ==
[2024-02-03 11:18] VITALS: BP 152/70; PULSE 66; O2SAT 97; BMI 30.1
--- NOTE | 2024-02-03 11:18 | HO.NEPHOV_ITS ---
HPI HPI Comments History of Present Illness Details I had the privilege of seeing Heather in follow up for hyponatremia and hyperkalemia on a backdrop of hypertension. She has no history of weight loss. She has a smoker. She denies any nausea, vomiting or diarrhea. She has been on hydrochlorothiazide. She has no history of hypoglycemia. She has no history of liver, kidney or heart failure. She has not having any depression and is not on any antidepressant medications. She has a diabetic. She has no weakness or mental status changes. She has no edema. Her blood pressure is not very controlled. She denies any other systemic symptoms. She feels well [facility] Medical History Allergic rhinitis Colonoscopy refused COPD (chronic obstructive pulmonary disease) DM2 (diabetes mellitus, type 2) Hypercholesterolemia Hypertension Obesity (BMI 30-39.9) Post herpetic neuralgia Tobacco abuse Type 2 diabetes mellitus with hyperglycemia Vitamin D deficiency Surgical History Deviated septum History of cataract surgery Family History Father No problems noted. Mother No problems noted. Maternal Uncle Diabetes Maternal Uncle Heart problem Social History Household Members: None Housing: Apartment Do you presently have visiting nurse or other home services: No Alcohol intake: never Patient Tobacco Use Status: Current everyday Tobacco user Tobacco use type: Cigarette Cigarettes Per Day: 10 e-Cigarette/Vaping Use: Never Used Second Hand Smoke Exposure: No service: No Current occupational status: retired Cognitive needs: No Hearing needs: No Vision needs: No Vital Signs 02/03/24 11:18 Height 5 ft 2 in Weight 164 lb 8 oz BMI 30.1 BP 152/70 H Blood Pressure Location Rt brachial Position Sitting Pulse 66 Pulse Source Pulse Oximeter Pulse Oximetry (%) 97 Oxygen Delivery Method Room Air Physical Exam Vital Signs: Last Vital Signs Pulse 66 02/03/24 11:18 BP 152/70 H 02/03/24 11:18 Pulse Ox 97 02/03/24 11:18 Oxygen Delivery Method Room Air 02/03/24 11:18 BMI result Body Mass Index 30.1 Const General: comfortable and no acute distress Orientation/consciousness: patient oriented x3 HEENT Head: Yes normocephalic Mouth: Normal oral and palatal mucosa present Eyes EOM: EOMs intact bilaterally Neck Neck: Yes supple Resp Auscultation: clear to auscultation bilaterally Cardio Jugular venous distension: no JVD Rate: regular rate GI Palpation (GI): Soft to palpation Auscultation: normal bowel sounds General: Yes no CVA tenderness Back/Spine/Pelvis Back: no CVA tenderness Skin General skin exam: no rashes or lesions noted Neuro General: patient oriented x3 and moves all extremities Extrem General: Yes no pedal edema Assessment & Plan Assessment & Plan (1) Hyperkalemia: Code(s): E87.5 - Hyperkalemia (2) Hyponatremia: Code(s): E87.1 - Hypo-osmolality and hyponatremia (3) Hypertension: Code(s): I10 - Essential (primary) hypertension Qualifiers: Hypertension type: essential hypertension Qualified Code(s): I10 - Essential (primary) hypertension Plan Heather has euvolemic hyponatremia. She has been on hydrochlorothiazide which I discontinued at the last visit. She does not have any hypovolemia or hypervolemia. She has no history of any hypotension, depression or taking antidepressant medications. She has not known to have any thyroid or adrenal issues. I increased her amlodipine to 10 mg daily. Her urine and serum osmolality, serum calcium, random cortisol, thyroid function were OK . Her s kate immunofixation is pending. Her Simvastatin needs to be changed to Atorvostatin.( given she is on Amlodipine 10 mg and potential interaction). I did not make any other medication changes today. All these have been discussed in detail. Answered all questions. Labs ordered. Follow-up given. Orders: Orders Electrolytes Today E87.1 - Hypo-osmolality and hyponatremia, E87.5 - Hyperkalemia, I10 - Essential (primary) hypertension Creatinine Today E87.1 - Hypo-osmolality and hyponatremia, E87.5 - Hyperkalemia, I10 - Essential (primary) hypertension Blood Urea Nitrogen Today E87.1 - Hypo-osmolality and hyponatremia, E87.5 - Hyperkalemia, I10 - Essential (primary) hypertension Medications: Changed From amlodipine 5 mg PO DAILY 30 tabs 3RF 30 days To amlodipine 10 mg PO DAILY 30 tabs 6RF 30 days Coding Level of Care Code Est Pt Level 4 (82596) Diagnoses Hyperkalemia E87.5 Hyponatremia E87.1 Essential hypertension I10 Hypertension type: essential hypertension Results Reviewed Nephrology Results: Hgb 15.0 g/dl (12.0-16.0) 04/16/23 WBC 7.3 X10*3/uL (4.8-10.8) 04/16/23 Plt Count 264 X10*3/uL (160-400) 04/16/23 Sodium 127 mmol/L (135-145) L 12/25/23 Potassium 5.3 mmol/L (3.3-5.1) H 12/25/23 Chloride 87 mmol/L (96-108) L 12/25/23 Carbon Dioxide 32 mmol/L (22-29) H 12/25/23 BUN 10 mg/dL (9-16) 12/25/23 Creatinine 0.83 mg/dL (0.5-1.4) 12/25/23 Calcium 9.8 mg/dL (8.4-10.2) 02/02/24 Urine Creatinine 49.37 mg/dL 04/16/23
== END 2024-02-03 11:57 | disposition home or self-care (01) ==
PROVIDERS: PCP Internal Medicine; Visit Provider Internal Medicine Nephrology
DX: E87.5 Hyperkalemia (principal); E87.1 Hypo-osmolality and hyponatremia; I10 Essential (primary) hypertension
CPT/HCPCS: 99214

== ENCOUNTER → 2024-02-03 11:01 | Outpatient (BNVA) | payer MEDICARE, MEDICAID, SELFPAY | PROVIDERS: PCP Internal Medicine; Visit Provider Internal Medicine Nephrology | DX: E87.1 Hypo-osmolality and hyponatremia (principal); E87.5 Hyperkalemia; I10 Essential (primary) hypertension | CPT/HCPCS: 99212 ==

== ENCOUNTER 2024-05-04 09:08 | Outpatient (AMB) | payer MEDICARE, MEDICAID, SELFPAY ==
[2024-05-04 09:39] VITALS: BP 140/90; PULSE 63; O2SAT 97; BMI 31.0
--- NOTE | 2024-05-04 09:39 | HO.NEPHOV ---
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 Accompanied by: Self / Same As Patient Allergies amlodipine Allergy (Unknown, Verified 05/04/24 09:41) leg swelling irbesartan Allergy (Unknown, Verified 05/04/24 09:41) rectal bleeding iron Allergy (Unknown, Verified 05/04/24 09:41) cough lisinopril Allergy (Unknown, Verified 05/04/24 09:41) unknown simvastatin Allergy (Unknown, Verified 05/04/24 09:41) at 40 mg cramps Sulfa (Sulfonamide Antibiotics) [SULFA (SULFONAMIDE ANTIBIOTICS)] Allergy (Unknown, Verified 05/04/24 09:41) HIVES Influenza Virus Vaccines Adverse Reaction (Intermediate, Verified 05/04/24 09:41) Unknown HPI Comments Details: I had the privilege of seeing Heather in follow up for hyponatremia and hyperkalemia on a backdrop of hypertension. She has no history of weight loss. She is a smoker. She denies any nausea, vomiting or diarrhea. She has been on hydrochlorothiazide. She has no history of hypoglycemia. She has no history of liver, kidney or heart failure. She has not having any depression and is not on any antidepressant medications. She has a diabetic. She has no weakness or mental status changes. She has no edema. Her blood pressure is not very controlled. She denies any other systemic symptoms. She had edema and she stopped her Amlodipine. She feels well [facility] Medical History Allergic rhinitis Colonoscopy refused COPD (chronic obstructive pulmonary disease) DM2 (diabetes mellitus, type 2) Hypercholesterolemia Hypertension Obesity (BMI 30-39.9) Post herpetic neuralgia Tobacco abuse Type 2 diabetes mellitus with hyperglycemia Vitamin D deficiency Surgical History Deviated septum History of cataract surgery Family History Father No problems noted. Mother No problems noted. Maternal Uncle Diabetes Maternal Uncle Heart problem Social History Household Members: None Housing: Apartment Do you presently have visiting nurse or other home services: No Alcohol intake: never Patient Tobacco Use Status: Current everyday Tobacco user Tobacco use type: Cigarette Cigarettes Per Day: 10 e-Cigarette/Vaping Use: Never Used Second Hand Smoke Exposure: No service: No Current occupational status: retired Cognitive needs: No Hearing needs: No Vision needs: No Review of Systems Const All systems reviewed & are unremarkable except as noted in HPI and below Physical Exam Vital Signs: Last Vital Signs Pulse 63 05/04/24 09:39 BP 190/80 H 05/04/24 09:39 Pulse Ox 97 05/04/24 09:39 Oxygen Delivery Method Room Air 05/04/24 09:39 BMI result Body Mass Index 31.0 Const General: comfortable and no acute distress Orientation/consciousness: patient oriented x3 HEENT Head: Yes normocephalic Mouth: Normal oral and palatal mucosa present Eyes EOM: EOMs intact bilaterally Neck Neck: Yes supple Resp Auscultation: clear to auscultation bilaterally Cardio Jugular venous distension: no JVD Rate: regular rate GI Palpation (GI): Soft to palpation Auscultation: normal bowel sounds General: Yes no CVA tenderness Back/Spine/Pelvis Back: no CVA tenderness Skin General skin exam: no rashes or lesions noted Neuro General: patient oriented x3 and moves all extremities Extrem General: Yes no pedal edema Results Reviewed Nephrology Results: Hgb 15.0 g/dl (12.0-16.0) 04/16/23 WBC 7.3 X10*3/uL (4.8-10.8) 04/16/23 Plt Count 264 X10*3/uL (160-400) 04/16/23 Sodium 127 mmol/L (135-145) L 12/25/23 Potassium 5.3 mmol/L (3.3-5.1) H 12/25/23 Chloride 87 mmol/L (96-108) L 12/25/23 Carbon Dioxide 32 mmol/L (22-29) H 12/25/23 BUN 10 mg/dL (9-16) 12/25/23 Creatinine 0.83 mg/dL (0.5-1.4) 12/25/23 Calcium 9.8 mg/dL (8.4-10.2) 02/02/24 Urine Creatinine 49.37 mg/dL 04/16/23 Assessment & Plan Assessment & Plan (1) Hyperkalemia: Code(s): E87.5 - Hyperkalemia Category: Medical (2) Hyponatremia: Code(s): E87.1 - Hypo-osmolality and hyponatremia Category: Medical (3) Hypertension: Code(s): I10 - Essential (primary) hypertension Category: Medical Qualifiers: Hypertension type: essential hypertension Qualified Code(s): I10 - Essential (primary) hypertension Plan Heather has euvolemic hyponatremia. She is not taking any hydrochlorothiazide. She does not have any hypovolemia or hypervolemia. She has no history of any hypotension, depression or taking antidepressant medications. She has not known to have any thyroid or adrenal issues. Her urine and serum osmolality, serum calcium, random cortisol, thyroid function were OK. I changed her metoprolol to carvedilol 12.5 mg twice daily( She had discontinued her Amlodipine due to edema). I did not make any other medication changes today. All these have been discussed in detail. Answered all questions. Labs ordered. Follow-up given. Orders: Orders Blood Urea Nitrogen Today E87.1 - Hypo-osmolality and hyponatremia, E87.5 - Hyperkalemia, I10 - Essential (primary) hypertension Electrolytes Today E87.1 - Hypo-osmolality and hyponatremia, E87.5 - Hyperkalemia, I10 - Essential (primary) hypertension Creatinine Today E87.1 - Hypo-osmolality and hyponatremia, E87.5 - Hyperkalemia, I10 - Essential (primary) hypertension Medications: New carvedilol must administer with a meal/food 12.5 mg PO BID 30 days 60 tabs 3RF Discontinued metoprolol tartrate bradycardia changed 06/2022 from 100 mg to 50 mg Discontinued Reason: Doctor's Order 50 mg PO BID 30 days 60 tabs 3RF I10 - Essential (primary) hypertension Coding Level of Care Code Est Pt Level 4 (54846) Diagnoses Hyperkalemia E87.5 Hyponatremia E87.1 Essential hypertension I10 Hypertension type: essential hypertension
== END 2024-05-04 10:00 | disposition home or self-care (01) ==
PROVIDERS: PCP Internal Medicine; Visit Provider Internal Medicine Nephrology
DX: E87.5 Hyperkalemia (principal); E87.1 Hypo-osmolality and hyponatremia; I10 Essential (primary) hypertension
CPT/HCPCS: 99214

== ENCOUNTER 2024-05-04 10:12 | Outpatient (REF) | payer MEDICARE, MEDICAID, SELFPAY ==
[2024-05-04 13:59] LABS: Anion Gap 10 (12-20); Blood Urea Nitrogen 15 mg/dL (9-16); Carbon Dioxide 32 mmol/L (22-29); Chloride 97 mmol/L (96-108); Estimated Glomerular Filt Rate > 60; Potassium 4.1 mmol/L (3.3-5.1); Sodium 135 mmol/L (135-145)
== END 2024-05-04 10:13 | disposition home or self-care (01) ==
LOC: HO.10HDL 10:12
PROVIDERS: Visit Provider Internal Medicine Nephrology
DX: E87.1 Hypo-osmolality and hyponatremia (principal); E87.5 Hyperkalemia; I10 Essential (primary) hypertension
CPT/HCPCS: 36415; 80051; 82565; 84520; 99212

== ENCOUNTER 2024-06-08 08:57 | Outpatient (AMB) | payer MEDICARE, MEDICAID, SELFPAY ==
[2024-06-08 09:23] VITALS: BP 130/80; PULSE 65; O2SAT 95; BMI 31.1
--- NOTE | 2024-06-08 09:23 | HO.NEPHOV_ITS ---
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 Accompanied by: Self / Same As Patient Allergies amlodipine Allergy (Unknown, Verified 06/08/24 09:25) leg swelling irbesartan Allergy (Unknown, Verified 06/08/24 09:25) rectal bleeding iron Allergy (Unknown, Verified 06/08/24 09:25) cough lisinopril Allergy (Unknown, Verified 06/08/24 09:25) unknown simvastatin Allergy (Unknown, Verified 06/08/24:) at 40 mg cramps Sulfa (Sulfonamide Antibiotics) [SULFA (SULFONAMIDE ANTIBIOTICS)] Allergy (Unknown, Verified 06/08/24 09:) HIVES Influenza Virus Vaccines Adverse Reaction (Intermediate, Verified 06/08/24:) Unknown HPI Comments Details: I had the privilege of seeing Heather in follow up for H/O hyponatremia and hyperkalemia on a backdrop of hypertension. She is a smoker. She denies any nausea, vomiting or diarrhea. She has no history of hypoglycemia. She has no history of liver, kidney or heart failure. She has not having any depression and is not on any antidepressant medications. She is a diabetic. She has no weakness or mental status changes. She has no significant edema. Her blood pressure is very controlled. She denies any other systemic symptoms. She had edema after she stopped her Amlodipine. She feels well [facility] Medical History Allergic rhinitis Colonoscopy refused COPD (chronic obstructive pulmonary disease) DM2 (diabetes mellitus, type 2) Hypercholesterolemia Hypertension Obesity (BMI 30-39.9) Post herpetic neuralgia Tobacco abuse Type 2 diabetes mellitus with hyperglycemia Vitamin D deficiency Surgical History Deviated septum History of cataract surgery Family History Father No problems noted. Mother No problems noted. Maternal Uncle Diabetes Maternal Uncle Heart problem Social History Household Members: None Housing: Apartment Do you presently have visiting nurse or other home services: No Alcohol intake: never Patient Tobacco Use Status: Current everyday Tobacco user Tobacco use type: Cigarette Cigarettes Per Day: 10 e-Cigarette/Vaping Use: Never Used Second Hand Smoke Exposure: No service: No Current occupational status: retired Cognitive needs: No Hearing needs: No Vision needs: No Physical Exam Vital Signs: Last Vital Signs Pulse 65 06/08/24 09:23 BP 142/78 H 06/08/24 09:23 Pulse Ox 95 06/08/24 09:23 Oxygen Delivery Method Room Air 06/08/24 09:23 BMI result Body Mass Index 31.1 Const General: comfortable and no acute distress Orientation/consciousness: patient oriented x3 HEENT Head: Yes normocephalic Mouth: Normal oral and palatal mucosa present Eyes EOM: EOMs intact bilaterally Neck Neck: Yes supple Resp Auscultation: clear to auscultation bilaterally Cardio Jugular venous distension: no JVD Rate: regular rate GI Palpation (GI): Soft to palpation Auscultation: normal bowel sounds General: Yes no CVA tenderness Back/Spine/Pelvis Back: no CVA tenderness Skin General skin exam: no rashes or lesions noted Neuro General: patient oriented x3 and moves all extremities Extrem General: Yes no pedal edema Results Reviewed Nephrology Results: Sodium 135 mmol/L (135-145) 05/04/24 Potassium 4.1 mmol/L (3.3-5.1) 05/04/24 Chloride 97 mmol/L (96-108) 05/04/24 Carbon Dioxide 32 mmol/L (22-29) H 05/04/24 BUN 15 mg/dL (9-16) 05/04/24 Creatinine 0.83 mg/dL (0.5-1.4) 05/04/24 Calcium 9.8 mg/dL (8.4-10.2) 02/02/24 Assessment & Plan Assessment & Plan (1) Hypertension: Code(s): I10 - Essential (primary) hypertension Category: Medical Qualifiers: Hypertension type: essential hypertension Qualified Code(s): I10 - Essential (primary) hypertension Plan Heather had euvolemic hyponatremia. She is not taking any hydrochlorothiazide. She does not have any hypovolemia or hypervolemia. She has no history of any hypotension, depression or taking antidepressant medications. She has not known to have any thyroid or adrenal issues. Her urine and serum osmolality, serum calcium, random cortisol, thyroid function were OK. Her BP is well controlled on carvedilol 12.5 mg twice daily( She had discontinued her Amlodipine due to edema). I did not make any other medication changes today. All these have been discussed in detail. Answered all questions. Labs ordered. Follow-up given. Orders: Orders Creatinine Today I10 - Essential (primary) hypertension Blood Urea Nitrogen Today I10 - Essential (primary) hypertension Electrolytes Today I10 - Essential (primary) hypertension Coding Level of Care Code Est Pt Level 4 (45978) Diagnoses Essential hypertension I10 Hypertension type: essential hypertension
== END 2024-06-08 10:01 | disposition home or self-care (01) ==
PROVIDERS: PCP Internal Medicine; Visit Provider Internal Medicine Nephrology
DX: I10 Essential (primary) hypertension (principal)
CPT/HCPCS: 99214

== ENCOUNTER → 2024-06-08 08:57 | Outpatient (BNVA) | payer MEDICARE, MEDICAID, SELFPAY | PROVIDERS: PCP Internal Medicine; Visit Provider Internal Medicine Nephrology | DX: I10 Essential (primary) hypertension (principal); F17.210 Nicotine dependence, cigarettes, uncomplicated | CPT/HCPCS: 99212 ==

== ENCOUNTER 2024-07-11 08:23 | Outpatient (AMB) | payer MEDICARE, MEDICAID, SELFPAY ==
--- NOTE | 2024-07-11 08:28 | A.OFFPC_ITS ---
Vital Signs 07/11/24 08:29 Height 5 ft 2 in Weight 172 lb BMI 31.5 BP 132/84 Blood Pressure Location Lt brachial Position Sitting Pulse 68 Pulse Source Pulse Oximeter Pulse Oximetry (%) 96 Oxygen Delivery Method Room Air Intake Visit Reasons: DM , Cholesterol Community Health Agent Required: No Accompanied by: Self / Same As Patient Allergies amlodipine Allergy (Unknown, Verified 07/11/24 08:30) leg swelling irbesartan Allergy (Unknown, Verified 07/11/24 08:30) rectal bleeding iron Allergy (Unknown, Verified 07/11/24 08:30) cough lisinopril Allergy (Unknown, Verified 07/11/24 08:30) unknown simvastatin Allergy (Unknown, Verified 07/11/24 08:30) at 40 mg cramps Sulfa (Sulfonamide Antibiotics) [SULFA (SULFONAMIDE ANTIBIOTICS)] Allergy ( Unknown, Verified 07/11/24 08:30) HIVES Influenza Virus Vaccines Adverse Reaction (Intermediate, Verified 07/11/24 08:30) Unknown Medication List - Last Reconciled 07/11/24 by Sd Quintero MD blood pressure monitor (Blood Pressure Kit) As directed blood pressure monitor As directed blood sugar diagnostic (FreeStyle Lite Strips) As directed check the BS twice daily blood-glucose meter (FreeStyle Lite Meter kit) As directed carvedilol 12.5 mg PO BID 30 days cetirizine (Zyrtec) 10 mg PO DAILY PRN cholecalciferol (vitamin D3) 25 mcg PO DAILY cyanocobalamin (vitamin B-12) 1,000 mcg PO DAILY empagliflozin (Jardiance) 10 mg PO DAILY lancets (FreeStyle Lancets) As directed check BS BID metformin 500 mg PO BID simvastatin 40 mg PO BEDTIME Tobacco use date assessed: 07/11/24 Fall risk assessment: 1 Fall in past year Last assessed Fall Risk: 07/11/24 Dental Screening Dental Screen Date: 07/11/24 HPI DM , Cholesterol HPI Details 78-year-old obese female smoker with unc ontrolled diabetes mellitus COPD hypertension hypercholesterolemia and generalized anxiety disorder patient was last seen in November 2023. Mammogram has been requested. Colonoscopy has been declined and bone density is due. Review of the notes has seen Nephrology May 2024 history of hyponatremia and hyperkalemia not taking any hydrochlorothiazide. And has advised blood test repeat. Discussed about mammograms and bone density and agreed to have this tested. Also given the program information regarding diabetes managing in [place]. No nausea no vomiting no chest pains no shortness a breath no bowel bladder symptoms. Continues to smoke. [facility] Medical History (Updated 07/11/24 @ 09:05 by Sd Quintero MD) Osteopenia DM2 (diabetes mellitus, type 2) Colonoscopy refused Tobacco abuse Vitamin D deficiency Allergic rhinitis Type 2 diabetes mellitus with hyperglycemia Post herpetic neuralgia Obesity (BMI 30-39.9) COPD (chronic obstructive pulmonary disease) Hypercholesterolemia Hypertension Surgical History Deviated septum History of cataract surgery Family History Father No problems noted. Mother No problems noted. Maternal Uncle Diabetes Maternal Uncle Heart problem Social History Household Members: None Housing: Apartment Do you presently have visiting nurse or other home services: No Alcohol intake: never Patient Tobacco Use Status: Current everyday Tobacco user Tobacco use type: Cigarette Cigarettes Per Day: 10 e-Cigarette/Vaping Use: Never Used Second Hand Smoke Exposure: No service: No Current occupational status: retired Cognitive needs: No Hearing needs: No Vision needs: No Questionnaire PHQ-9 Over the last 2 weeks, how often have you been bothered by any of the following problems? 1. Little interest or pleasure in doing things: not at all 2. Feeling down, depressed, or hopeless: not at all 3. Trouble falling or staying asleep, or sleeping too much: not at all 4. Feeling tired or having little energy: not at all 5. Poor appetite or overeating: not at all 6. Feeling bad about yourself - or that you are a failure or have let yourself or your family down: not at all 7. Trouble concentrating on things, such as reading the newspaper or watching television: not at all 8. Moving or speaking so slowly that other people could have noticed. Or the opposite - being so fidgety or restless that you have been moving around a lot more than usual: not at all 9. Thoughts that you would be better off or of hurting yourself in some way: not at all Total score: 0 Depression Screening Interpretation: Negative Depression Screening Done: Yes 42792 - PHQ-9 Billing: Yes Source: Developed by Drs. South Tam, Valorie Saldana, Alfred Malhotra and colleagues, with an educational lia from [employer]. Thrive Questionnaire Date Thrive assessed: 07/11/24 I am a: Patient What is your living situation today?: I have a steady place to live Within the past 12 months, did the food you bought not last and you didn't have the money to get more?: Never true Within the past 12 months, did you worry whether your food would run out before you got money to buy more?: Never true Do you have trouble paying for medicines?: No Do you have trouble getting transportation to medical appointments?: No Do you have trouble paying your heating and electricity bill?: No Do you have trouble taking care of your child, family member or friend?: No Do you have trouble with day-to-day activities such as bathing, preparing meals, shopping, managing finances, etc.?: No Are you currently unemployed and looking for a job?: No Are you interested in more education?: No Please select the resources that you would like help with: None Currently or been in a relationship where the following occur: No concerns reported THRIVE Score: 0 AUDIT C Alcohol Use Questionnaire (AUDIT-C) 1. How often do you have a drink containing alcohol?: Never 3. How often do you have six or more drinks on one occasion?: Never Total Score: 0 Score Reviewed/Action Taken: No ALYSIA-7 AMB Questionnaire ALYSIA-7 Date ALYSIA - 7 assessed: 07/11/24 Feeling nervous, anxious, or on edge: 0 = Not at all Not being able to stop or control worryin = Not at all Worrying too much about different things: 0 = Not at all Trouble relaxin = Not at all Being so restless that it is hard to sit still: 0 = Not at all Becoming easily annoyed or irritable: 0 = Not at all Feeling afraid as if something awful might happen: 0 = Not at all Total ALYSIA-7 score (0-4 normal; 5-9 mild; 10-14 moderate; 15-21 severe): 0 Source: Developed by Drs. South Tam, Valorie Saldana, Alfred Malhotra and colleagues, with an educational lia from [employer]. Physical exam (Primary Care) Vital Signs: Last Vital Signs Pulse 68 07/11/24 08:29 BP 132/84 07/11/24 08:29 Pulse Ox 96 07/11/24 08:29 Oxygen Delivery Method Room Air 07/11/24 08:29 BMI result Body Mass Index 31.5 Tobacco/Smoking Status: Tobacco use Status Tobacco use date assessed 07/11/24 07/11/24 08:41 Patient Tobacco Use Status Current everyday Tobacco 07/11/24 08:41 Tobacco use type Cigarette 07/11/24 08:41 e-Cigarette/Vaping Use Never Used 07/11/24 08:41 PHQ-9: PHQ-9 Score PHQ-9: Total score 0 07/11/24 08:54 Depression Screening Interpretation: Negative Thrive Assessment: Date of Thrive Assessment Date Thrive assessed 07/11/24 07/11/24 08:41 Currently or been in a relationship where the following occur: No concerns reported Const General: alert; No acute distress Eyes Conjunctivae: conjunctivae normal Resp Auscultation: clear to auscultation bilaterally Cardio Rate: regular rate Rhythm: regular rhythm GI Inspection: Yes normal to inspection Extrem General: Yes normal to inspection and No edema Results AMB Hemoglobin A1c AMB Hemoglobin A1c 7.6 % Last Edit by VÍCTOR Johnson on 07/11/24 08 :44 Immunizations tetanus-diphtheria toxoids-Td 2 Lf unit-2 Lf unit/0.5 mL IM suspension Performing Provider: Sd Quintero MD [facility] Administered by: VÍCTOR Johnson on 07/11/24 09:12 Dose Route Admin Location Dispensed Lot Number Expiration Date NDC Technician [employer] 0.5 mL IM Left Deltoid 0.5 mL [id number] 01/02/25 [address]-2 [employer] VIS Given Date VIS Provided VIS Publication Date 07/11/24 Single Vaccine 21 Eligibility Eligibility Date Funding Source Not VFC Eligible 07/11/24 State funds Results Reviewed Results Reviewed: Laboratory Last Values Hgb A1c (Clinic) 7.6 % (4.0-6.0) H 07/11/24 08:43 Assessment and Plan Assessment & Plan (1) Obesity: Code(s): E66.9 - Obesity, unspecified Plan: Diet and exercise (2) Type 2 diabetes mellitus with hyperglycemia: Comment: Dr. Montilla Code(s): E11.65 - Type 2 diabetes mellitus with hyperglycemia Qualifiers: Diabetes mellitus residential insulin use: without dedicated intermodal truck driver use Qualified Code(s): E11.65 - Type 2 diabetes mellitus with hyperglycemia Plan: Decrease the amount of carbohydrate intake, pasta, bread, rice and potatoes are all sugar and that is aside from all the sweet stuff, remember that fruits are good but they are Sweet also. Hemoglobin A1c goal of less than 7.0 patient is on metformin 500 mg twice a day (3) Hypertension: Code(s): I10 - Essential (primary) hypertension Qualifiers: Hypertension type: essential hypertension Qualified Code(s): I10 - Essential (primary) hypertension Plan: Continue with blood pressure medication. Decrease salt intake and exercise on carvedilol 12.5 mg twice a day (4) Hypercholesterolemia: Code(s): E78.00 - Pure hypercholesterolemia, unspecified Plan: Avoid fried foods, chicken skin, eggs, butter margarine, pastries and meat. Be it pork or beef they have a lot of cholesterol LDL goal of less than 100 and triglyceride of less than 150 on simvastatin 40 mg once a day (5) Tobacco abuse: Code(s): Z72.0 - Tobacco use Plan: Patient is strongly advised to stop discussed about lung cancer screening program. (6) Generalized anxiety disorder: Comment: declined referral to counselling Code(s): F41.1 - Generalized anxiety disorder Plan: Stable presently (7) Breast cancer screening by mammogram: Code(s): Z12.31 - Encounter for screening mammogram for malignant neoplasm of breast Plan: Patient is reminded about mammogram (8) Osteopenia: Code(s): M85.80 - Other specified disorders of bone density and structure, unspecified site Plan: Patient is reminded about bone density (9) Mammogram declined: Code(s): Z53.20 - Procedure and treatment not carried out because of patient's decision for unspecified reasons (10) Peripheral vascular disease: Code(s): I73.9 - Peripheral vascular disease, unspecified Orders: Orders AMB Hemoglobin A1c Today Z13.9 - Encounter for screening, unspecified Comprehensive Met. Panel Today E11.65 - Type 2 diabetes mellitus with hyperglycemia MM tomosynthesis screening BI Today Z12.31 - Encounter for screening mammogram for malignant neoplasm of breast Td State Immunization Today Z23 - Encounter for immunization Complete Blood Count Auto Diff Today E11.65 - Type 2 diabetes mellitus with hyperglycemia Free T4 (Free Thyroxine) Today E11.65 - Type 2 diabetes mellitus with hyperglycemia Thyroid Stimulating Hormone Today E11.65 - Type 2 diabetes mellitus with hyperglycemia Lipid Panel Today E11.65 - Type 2 diabetes mellitus with hyperglycemia, E78.00 - Pure hypercholesterolemia, unspecified Vitamin B12 and Folate Today E11.65 - Type 2 diabetes mellitus with hyperglycemia Vitamin D 25-OH Total Today E11.65 - Type 2 diabetes mellitus with hyperglycemia Microalbumin, Random (w Creat) Today E11.65 - Type 2 diabetes mellitus with hyperglycemia Creatinine Urine Today E11.65 - Type 2 diabetes mellitus with hyperglycemia XR DEXA axial skeleton Today M81.0 - Age-related osteoporosis without current pathological fracture, M85.80 - Other specified disorders of bone density and structure, unspecified site Referrals Lung Cancer Screening Referral Z72.0 - Tobacco use Medications: New empagliflozin (Jardiance) 10 mg PO DAILY 30 tabs 4RF E11.65 - Type 2 diabetes mellitus with hyperglycemia tetanus-diphtheria toxoids-Td 0.5 mL IM ONCE 0.5 mL 0RF Z23 - Encounter for immunization Coding Level of Care Code Est Pt Level 4 (06990) Complex EM visit Add On G2211 Diagnoses Obesity E66.9 Type 2 diabetes mellitus with hyperglycemia, without long-term current use of insulin E11.65 Diabetes mellitus dedicated intermodal truck driver insulin use: without residential use Essential hypertension I10 Hypertension type: essential hypertension Hypercholesterolemia E78.00 Tobacco abuse Z72.0 Generalized anxiety disorder F41.1 Breast cancer screening by mammogram Z12.31 Osteopenia M85.80 Mammogram declined Z53.20 Peripheral vascular disease I73.9
[2024-07-11 08:29] VITALS: BP 132/84; PULSE 68; O2SAT 96; BMI 31.5
== END 2024-07-11 09:24 | disposition home or self-care (01) ==
PROVIDERS: PCP Internal Medicine; Visit Provider Internal Medicine
DX: E11.65 Type 2 diabetes mellitus with hyperglycemia (principal); I73.9 Peripheral vascular disease, unspecified; E66.9 Obesity, unspecified; Z23 Encounter for immunization; Z68.31 Body mass index [BMI] 31.0-31.9, adult; I10 Essential (primary) hypertension; E78.00 Pure hypercholesterolemia, unspecified; Z72.0 Tobacco use; F41.1 Generalized anxiety disorder; Z12.31 Encounter for screening mammogram for malignant neoplasm of breast; M85.80 Other specified disorders of bone density and structure, unspecified site; Z53.20 Procedure and treatment not carried out because of patient's decision for unspecified reasons
CPT/HCPCS: 83036; 90471; 90714; 99214

== ENCOUNTER 2024-10-13 14:31 | Outpatient (AMB) | payer MEDICARE, MEDICAID, SELFPAY ==
--- NOTE | 2024-10-13 14:31 | A.OFFPC_ITS ---
Intake Visit Reasons: COVID Pos. Allergies amlodipine Allergy (Unknown, Verified 10/13/24 14:34) leg swelling irbesartan Allergy (Unknown, Verified 10/13/24 14:34) rectal bleeding iron Allergy (Unknown, Verified 10/13/24 14:34) cough lisinopril Allergy (Unknown, Verified 10/13/24 14:34) unknown simvastatin Allergy (Unknown, Verified 10/13/24 14:34) at 40 mg cramps Sulfa (Sulfonamide Antibiotics) [SULFA (SULFONAMIDE ANTIBIOTICS)] Allergy (Unknown, Verified 10/13/24 14:34) HIVES Influenza Virus Vaccines Adverse Reaction (Intermediate, Verified 10/13/24 14:34) Unknown Tobacco use date assessed: 07/11/24 Fall risk assessment: No Falls in past year Last assessed Fall Risk: 10/13/24 Dental Screening Dental Screen Date: 07/11/24 HPI COVID Pos. HPI Details 78-year-old obese female smoker with sea betes mellitus hypertension hypercholesterolemia generalized anxiety disorder calling in through Telehealth having COVID positive infection. Last seen in 07/12/2024, congested no fever, 2 days, has a baseline cough [facility] Medical History (Updated 10/13/24 @ 14:41 by Sd Quintero MD) Nicotine dependence, cigarettes, uncomplicated Osteopenia Colonoscopy refused Vitamin D deficiency Allergic rhinitis Type 2 diabetes mellitus with hyperglycemia Post herpetic neuralgia Obesity (BMI 30-39.9) COPD (chronic obstructive pulmonary disease) Hypercholesterolemia Hypertension Surgical History (Updated 08/11/24 @ 13:49 by Jenni Eduardo PA-C) History of nasal septoplasty History of cataract surgery Family History (Updated 10/13/24 @ 14:35 by Syeda Rand CMA) Father No problems noted. Mother No problems noted. Maternal Uncle Diabetes Maternal Uncle Heart problem Social History Household Members: None Housing: Apartment Do you presently have visiting nurse or other home services: No Alcohol intake: never Patient Tobacco Use Status: Current everyday Tobacco user Tobacco use type: Cigarette Cigarettes Per Day: 10 e-Cigarette/Vaping Use: Never Used Second Hand Smoke Exposure: No service: No Current occupational status: retired Cognitive needs: No Hearing needs: No Vision needs: No Questionnaire Thrive Questionnaire Date Thrive assessed: 07/11/24 ALYSIA-7 AMB Questionnaire ALYSIA-7 Date ALYSIA - 7 assessed: 07/11/24 Source: Developed by Drs. South Tam, Valorie Saldana, Alfred Malhotra and colleagues, with an educational lia from [employer]. Physical exam (Primary Care) Tobacco/Smoking Status: Tobacco use Status Tobacco use date assessed 07/11/24 10/13/24 14:31 Patient Tobacco Use Status Current everyday Tobacco 10/13/24 14:31 Tobacco use type Cigarette 10/13/24 14:31 e-Cigarette/Vaping Use Never Used 10/13/24 14:31 Thrive Assessment: Date of Thrive Assessment Date Thrive assessed 07/11/24 10/13/24 14:31 Telehealth Telehealth Location of provider rendering services: practice address Location of patient: address on file Patient Identification confirmed using: Name, : Yes Telehealth method: voice only Patient verbally consented to treatment: Yes Patient verbally consented to billing insurance company: Yes Patient informed of any privacy concerns related to visit: Yes Minutes spent on Phone/Video with Pt.: 15 Coding Level of Care Code Tele Est Pt Level 3 (17096) Diagnoses COVID-19 virus infection U07.1 Nicotine dependence, cigarettes, uncomplicated F17.210 Assessment & Plan Assessment & Plan (1) COVID-19 virus infection: Comment: October 12 2024 Code(s): U07.1 - COVID-19 Category: Medical Plan: antiviral prescription sent in. For the sore throat can take Cepacol lozenges, discussed about Delsym to help with dry cough so she can rest and advised to increase oral fluids. Patient also can take Tylenol for chills and fever. (2) Nicotine dependence, cigarettes, uncomplicated: Code(s): F17.210 - Nicotine dependence, cigarettes, uncomplicated Category: Medical Plan: Patient is strongly advised to stop smoking! Medications: New nirmatrelvir-ritonavir 300 mg (150 mg x 2)-100 mg (Paxlovid) take TWO 150 mg tablets of nirmatrelvir with ONE 100 mg tablet of ritonavir twice daily for 5 days PO 30 ea 0RF U07.1 - COVID-19
== END 2024-10-13 15:37 | disposition home or self-care (01) ==
LOC: HO.HMCH 14:31
PROVIDERS: PCP Internal Medicine; Visit Provider Internal Medicine
DX: U07.1 COVID-19 (principal); F17.210 Nicotine dependence, cigarettes, uncomplicated

== ENCOUNTER → 2024-10-13 14:31 | Outpatient (BNVA) | payer MEDICARE, MEDICAID, SELFPAY | PROVIDERS: PCP Internal Medicine; Visit Provider Internal Medicine ==

== ENCOUNTER 2024-11-07 09:48 | Outpatient (AMB) | payer MEDICARE, MEDICAID, SELFPAY ==
--- NOTE | 2024-11-07 09:52 | A.OFFPC_ITS ---
Vital Signs 11/07/24 09:53 Height 5 ft 2 in Weight 170 lb BMI 31.1 BP 132/80 Blood Pressure Location Lt brachial Position Sitting Pulse 58 Pulse Source Pulse Oximeter Pulse Oximetry (%) 98 Oxygen Delivery Method Room Air Intake Visit Reasons: DM Intake Note: Patient is here to follow up on DM. Director Medical Affairs Required: No Hide Dropper: Not Required per policy Accompanied by: Self / Same As Patient Allergies amlodipine Allergy (Unknown, Verified 11/07/24 09:58) leg swelling irbesartan Allergy (Unknown, Verified 11/07/24 09:58) rectal bleeding iron Allergy (Unknown, Verified 11/07/24 09:58) cough lisinopril Allergy (Unknown, Verified 11/07/24 09:58) unknown simvastatin Allergy (Unknown, Verified 11/07/24 09:58) at 40 mg cramps Sulfa (Sulfonamide Antibiotics) [SULFA (SULFONAMIDE ANTIBIOTICS)] Allergy (Unknown, Verified 11/07/24 09:58) HIVES carvedilol Adverse Reaction (Intermediate, Verified 11/07/24 09:58) Swelling Influenza Virus Vaccines Adverse Reaction (Intermediate, Verified 11/07/24 09:58) Unknown Medication List - Last Reconciled 11/07/24 by Faith Nieto PA-C blood pressure monitor (Blood Pressure Kit) As directed blood pressure monitor As directed blood sugar diagnostic (FreeStyle Lite Strips) As directed check the BS twice daily blood-glucose meter (FreeStyle Lite Meter kit) As directed cetirizine (Zyrtec) 10 mg PO DAILY PRN cholecalciferol (vitamin D3) 25 mcg PO DAILY cyanocobalamin (vitamin B-12) 1,000 mcg PO DAILY dapagliflozin propanediol (Farxiga) 5 mg PO DAILY lancets (FreeStyle Lancets) As directed check BS BID metoprolol tartrate 50 mg PO BID simvastatin 40 mg PO BEDTIME Tobacco use date assessed: 11/07/24 Fall risk assessment: No Falls in past year Last assessed Fall Risk: 11/07/24 Dental Screening Dental Screen Date: 07/11/24 HPI DM HPI Details 78-year-old female with past medical his tory of tobacco abuse, uncontrolled diabetes mellitus, COPD, hypertension, hypercholesterolemia and generalized anxiety disorder last seen September 2024 coming in for follow up. Patient states she has been working on her diet modification. She states the Farxiga gives her excessive gas. She did no show her lung cancer screening and states she will do this when the weather is nice and would not like to do during the winter. COUNTS INCLUDE 234 BEDS AT THE [facility] Medical History (Updated 10/13/24 @ 14:41 by Sd Quintero MD) Nicotine dependence, cigarettes, uncomplicated Osteopenia Colonoscopy refused Vitamin D deficiency Allergic rhinitis Type 2 diabetes mellitus with hyperglycemia Post herpetic neuralgia Obesity (BMI 30-39.9) COPD (chronic obstructive pulmonary disease) Hypercholesterolemia Hypertension Surgical History History of nasal septoplasty History of cataract surgery Family History Father No problems noted. Mother No problems noted. Maternal Uncle Diabetes Maternal Uncle Heart problem Social History Household Members: None Housing: Apartment Do you presently have visiting nurse or other home services: No Alcohol intake: never Patient Tobacco Use Status: Current everyday Tobacco user Tobacco use type: Cigarette Cigarettes Per Day: 10 e-Cigarette/Vaping Use: Never Used Second Hand Smoke Exposure: Yes service: No Current occupational status: retired Cognitive needs: No Hearing needs: No Vision needs: No Questionnaire Thrive Questionnaire Date Thrive assessed: 07/11/24 ALYSIA-7 AMB Questionnaire ALYSIA-7 Date ALYSIA - 7 assessed: 07/11/24 Source: Developed by Drs. South Tam, Valorie Saldana, Alfred Malhotra and colleagues, with an educational lia from [employer]. Review of Systems Const Denies body aches, Denies chills, Denies fever(s), Denies headache(s) and Denies poor appetite Eyes Reports no additional complaints ENT Denies dizziness and Denies headache(s) Card Denies chest pain, Denies syncope, Denies edema, Denies irregular heart rhythm, Denies lightheadedness and Denies dyspnea Resp Denies cough and Denies dyspnea GI Denies abdominal pain, Denies constipation, Denies diarrhea, Denies nausea and Denies vomiting Reports no additional complaints Musc Reports no additional complaints and Denies abnormal gait Skin/Breast Reports system reviewed and no additional complaints, except as documented Neuro Denies abnormal gait, Denies dizziness, Denies syncope and Denies headache(s) Psych Reports no additional complaints Physical exam (Primary Care) Tobacco/Smoking Status: Tobacco use Status Tobacco use date assessed 07/11/24 10/13/24 14:31 Patient Tobacco Use Status Current everyday Tobacco 10/13/24 14:31 Tobacco use type Cigarette 10/13/24 14:31 e-Cigarette/Vaping Use Never Used 10/13/24 14:31 Thrive Assessment: Date of Thrive Assessment Date Thrive assessed 07/11/24 10/13/24 14:31 Const General: cooperative, healthy appearing, comfortable and no acute distress Orientation/consciousness: patient oriented x3 HENMT Head: Yes normocephalic Ears: hearing grossly normal bilaterally General nose exam: Normal external nose present Eyes General: appearance normal, both eyes and all related structures Conjunctivae: conjunctivae normal Neck Neck: Yes full ROM and Yes no lymphadenopathy Resp Effort & Inspection: normal respiratory effort Auscultation: clear to auscultation bilaterally, no crackles, no rales, no rhonchi and no wheezes Cardio Rate: regular rate Rhythm: regular rhythm Skin General skin exam: no rashes or lesions noted Neuro General: patient oriented x3 Gait exam (Neuro): Normal gait present Extrem General: Yes normal to inspection, Yes full ROM and No edema Psych Affect: normal affect Attitude: cooperative Insight: Good insight present (Psych) Judgement: Good judgement present (Psych) Results AMB Hemoglobin A1c AMB Hemoglobin A1c 6.8 % Last Edit by VÍCTOR Kelly on 11/07/24 10:03 Coding Level of Care Code Est Pt Level 4 (12061) Diagnoses Nicotine dependence, cigarettes, uncomplicated F17.210 Obesity E66.9 Essential hypertension I10 Hypertension type: essential hypertension Hypercholesterolemia E78.00 Type 2 diabetes mellitus with hyperglycemia, without long-term current use of insulin E11.65 Diabetes mellitus press tender long goods insulin use: without intermediate use Assessment & Plan Assessment & Plan (1) Nicotine dependence, cigarettes, uncomplicated: Code(s): F17.210 - Nicotine dependence, cigarettes, uncomplicated Category: Medical Plan: Smoking cigarettes and the use of tobacco can be harmful. We discussed the importance of stopping and options to aid in smoking cessation. Continue with annual CT screening (2) Obesity: Code(s): E66.9 - Obesity, unspecified Category: Medical Plan: Healthy diet and regular exercise is encouraged. (3) Hypertension: Code(s): I10 - Essential (primary) hypertension Category: Medical Qualifiers: Hypertension type: essential hypertension Qualified Code(s): I10 - Essential (primary) hypertension Plan: Continue on current blood pressure medication. Avoid salt intake and encourage healthy diet and regular exercise. Blood pressure at goal today 132/84 (4) Hypercholesterolemia: Code(s): E78.00 - Pure hypercholesterolemia, unspecified Category: Medical Plan: Avoid foods that are high in cholesterol such as red meat, fried foods, eggs and baked goods. Triglyceride goal of less than 150 and LDL goal of less than 100. Continue on simvastatin 40 mg (5) Type 2 diabetes mellitus with hyperglycemia: Comment: Dr. Montilla Code(s): E11.65 - Type 2 diabetes mellitus with hyperglycemia Category: Medical Qualifiers: Diabetes mellitus press tender long goods insulin use: without press tender long goods use Qualified Code(s): E11.65 - Type 2 diabetes mellitus with hyperglycemia Plan: Decrease the amount of carbohydrates such as pasta, bread, rice, and potatoes and limit the amount of sweets. Although fruits are generally healthy they should be eaten in moderation as they are still high in sugar. Hemoglobin A1c goal of less than 7%. Currently on Farxiga A1c 6.8% today improved from last A1c. Patient complaining of recent weight gain as side effect to Coreg. Will add Trulicity to medication regimen at this time. The medication was initially discontinued due to stomach cramping but she would like to try again. Advised patient if she begins having stomach cramping to reach out to the office and we will discontinue Trulicity and plan to increase Farxiga to 10 mg. Patient agrees with the plan and will follow up in 3 months. Plan This note was constructed using voice recognition software. While every effort has been made to ensure accuracy and data governance consultant, still areas may have been included sometimes these areas may affect the content or meeting of the given symptoms. Total time spent caring for the patient today was 20 minutes. This includes time spent before the visit reviewing the chart, time spent during the visit, and time spent after the visit and documentation. Orders: Orders AMB Hemoglobin A1c Today E11.65 - Type 2 diabetes mellitus with hyperglycemia Medications: New dulaglutide (Trulicity) 0.75 mg (0.5 mL) subcut QWEEK 2 mL 0RF
[2024-11-07 09:53] VITALS: BP 132/80; PULSE 58; O2SAT 98; BMI 31.1
== END 2024-11-07 10:43 | disposition home or self-care (01) ==
PROVIDERS: PCP Internal Medicine
DX: I10 Essential (primary) hypertension (principal); E11.65 Type 2 diabetes mellitus with hyperglycemia; E66.9 Obesity, unspecified; Z68.31 Body mass index [BMI] 31.0-31.9, adult; F17.210 Nicotine dependence, cigarettes, uncomplicated; E78.00 Pure hypercholesterolemia, unspecified

== ENCOUNTER → 2024-11-07 09:48 | Outpatient (BNVA) | payer MEDICARE, MEDICAID, SELFPAY | PROVIDERS: PCP Internal Medicine | DX: E11.65 Type 2 diabetes mellitus with hyperglycemia (principal); E78.00 Pure hypercholesterolemia, unspecified; E66.9 Obesity, unspecified; J44.9 Chronic obstructive pulmonary disease, unspecified; I10 Essential (primary) hypertension; F41.1 Generalized anxiety disorder; F17.210 Nicotine dependence, cigarettes, uncomplicated; Z68.31 Body mass index [BMI] 31.0-31.9, adult | CPT/HCPCS: 83036; 99212 ==

== ENCOUNTER 2025-01-18 09:33 | Outpatient (AMB) | payer MEDICARE, MEDICAID, SELFPAY ==
--- NOTE | 2025-01-18 09:37 | HO.NEPHOV ---
Vital Signs 01/18/25 09:38 Height 5 ft 2 in Weight 171 lb 6 oz BMI 31.3 BP 160/90 H Blood Pressure Location Rt brachial Position Sitting Pulse 66 Pulse Source Pulse Oximeter Pulse Oximetry (%) 98 Oxygen Delivery Method Room Air Intake Visit Reasons: 6 mon follow up-[facility] Chiropractor Sole Practitioner Required: No Accompanied by: Self / Same As Patient Allergies amlodipine Allergy (Unknown, Verified 01/18/25 09:54) leg swelling irbesartan Allergy (Unknown, Verified 01/18/25 09:54) rectal bleeding iron Allergy (Unknown, Verified 01/18/25 09:54) cough lisinopril Allergy (Unknown, Verified 01/18/25 09:54) unknown simvastatin Allergy (Unknown, Verified 01/18/25 09:54) at 40 mg cramps Sulfa (Sulfonamide Antibiotics) [SULFA (SULFONAMIDE ANTIBIOTICS)] Allergy (Unknown, Verified 01/18/25 09:54) HIVES carvedilol Adverse Reaction (Intermediate, Verified 01/18/25 09:54) Swelling Influenza Virus Vaccines Adverse Reaction (Intermediate, Verified 01/18/25 09:54) Unknown Do you need a note to return to daycare/school/sports/work: No HPI Comments Details: Heather was seen in follow up for H/O hyponatremia and hyperkalemia on a backdrop of hypertension. She is a smoker. She denies any nausea, vomiting or diarrhea. She has no history of hypoglycemia. She has no history of liver, kidney or heart failure. She has not having any depression and is not on any antidepressant medications. She is a diabetic. She has no weakness or mental status changes. She has no significant edema. Her blood pressure is very controlled. She denies any other systemic symptoms. She had edema after she stopped her Amlodipine. She feels well [facility] Medical History Nicotine dependence, cigarettes, uncomplicated Osteopenia Colonoscopy refused Vitamin D deficiency Allergic rhinitis Type 2 diabetes mellitus with hyperglycemia Post herpetic neuralgia Obesity (BMI 30-39.9) COPD (chronic obstructive pulmonary disease) Hypercholesterolemia Hypertension Surgical History History of nasal septoplasty History of cataract surgery Family History Father No problems noted. Mother No problems noted. Maternal Uncle Diabetes Maternal Uncle Heart problem Social History Household Members: None Housing: Apartment Do you presently have visiting nurse or other home services: No Alcohol intake: never Patient Tobacco Use Status: Current everyday Tobacco user Tobacco use type: Cigarette Cigarettes Per Day: 10 e-Cigarette/Vaping Use: Never Used Second Hand Smoke Exposure: Yes service: No Current occupational status: retired Cognitive needs: No Hearing needs: No Vision needs: No Review of Systems Const All systems reviewed & are unremarkable except as noted in HPI and below Physical Exam Vital Signs: Last Vital Signs Pulse 66 01/18/25 09:38 BP 160/90 H 01/18/25 09:38 Pulse Ox 98 01/18/25 09:38 Oxygen Delivery Method Room Air 01/18/25 09:38 BMI result Body Mass Index 31.3 Const General: comfortable and no acute distress Orientation/consciousness: patient oriented x3 HEENT Head: Yes normocephalic Mouth: Normal oral and palatal mucosa present Eyes EOM: EOMs intact bilaterally Neck Neck: Yes supple Resp Auscultation: clear to auscultation bilaterally Cardio Jugular venous distension: no JVD Rate: regular rate GI Palpation (GI): Soft to palpation Auscultation: normal bowel sounds General: Yes no CVA tenderness Back/Spine/Pelvis Back: no CVA tenderness Skin General skin exam: no rashes or lesions noted Neuro General: patient oriented x3 and moves all extremities Extrem General: Yes no pedal edema Results Reviewed Nephrology Results: No Data to Display Assessment & Plan Assessment & Plan (1) Hyponatremia: Code(s): E87.1 - Hypo-osmolality and hyponatremia Category: Medical (2) Hypertension: Code(s): I10 - Essential (primary) hypertension Category: Medical Qualifiers: Hypertension type: essential hypertension Qualified Code(s): I10 - Essential (primary) hypertension Plan Heather had euvolemic hyponatremia. She is not taking any hydrochlorothiazide. She does not have any hypovolemia or hypervolemia. She has no history of any hypotension, depression or taking antidepressant medications. She has not known to have any thyroid or adrenal issues. Her urine and serum osmolality, serum calcium, random cortisol, thyroid function were OK. Her BP is well controlled on metoprolol at home ( She had discontinued her Amlodipine due to edema). I did not make any other medication changes today. All these have been discussed in detail. Answered all questions. Labs ordered. Follow-up given. Orders: Orders Protein Creatinine Ratio, Ur 6 Months E87.1 - Hypo-osmolality and hyponatremia, I10 - Essential (primary) hypertension Creatinine 6 Months E87.1 - Hypo-osmolality and hyponatremia, I10 - Essential (primary) hypertension Blood Urea Nitrogen 6 Months E87.1 - Hypo-osmolality and hyponatremia, I10 - Essential (primary) hypertension Electrolytes 6 Months E87.1 - Hypo-osmolality and hyponatremia, I10 - Essential (primary) hypertension Coding Level of Care Code Est Pt Level 4 (16580) Diagnoses Hyponatremia E87.1 Essential hypertension I10 Hypertension type: essential hypertension
[2025-01-18 09:38] VITALS: BP 160/90; PULSE 66; O2SAT 98; BMI 31.3
== END 2025-01-18 10:17 | disposition home or self-care (01) ==
PROVIDERS: PCP Internal Medicine; Visit Provider Internal Medicine Nephrology
DX: E87.1 Hypo-osmolality and hyponatremia (principal); I10 Essential (primary) hypertension
CPT/HCPCS: 99214

== ENCOUNTER → 2025-01-18 09:33 | Outpatient (BNVA) | payer MEDICARE, MEDICAID, SELFPAY | PROVIDERS: PCP Internal Medicine; Visit Provider Internal Medicine Nephrology | DX: Z00.00 Encounter for general adult medical examination without abnormal findings (principal); F41.1 Generalized anxiety disorder; E53.8 Deficiency of other specified B group vitamins; E55.9 Vitamin D deficiency, unspecified; E11.65 Type 2 diabetes mellitus with hyperglycemia; J43.1 Panlobular emphysema; E78.00 Pure hypercholesterolemia, unspecified; I10 Essential (primary) hypertension; M85.80 Other specified disorders of bone density and structure, unspecified site; I73.9 Peripheral vascular disease, unspecified; E66.9 Obesity, unspecified; Z68.31 Body mass index [BMI] 31.0-31.9, adult; F17.210 Nicotine dependence, cigarettes, uncomplicated; E87.1 Hypo-osmolality and hyponatremia | CPT/HCPCS: 99212 ==

== ENCOUNTER 2025-01-18 10:26 | Outpatient (AMB) | payer MEDICARE, MEDICAID, SELFPAY ==
--- NOTE | 2025-01-18 10:48 | AM.OFFVISMDC ---
Intake Vital Signs 01/18/25 10:50 Height 5 ft 2 in Weight 170 lb 6 oz BMI 31.2 BP 124/76 Blood Pressure Location Lt brachial Position Sitting Pulse 66 Pulse Source Pulse Oximeter Pulse Oximetry (%) 95 Oxygen Delivery Method Room Air Intake Visit Reasons: V G0439 [employer] Required: No Accompanied by: Self / Same As Patient Allergies amlodipine Allergy (Unknown, Verified 01/18/25 11:27) leg swelling irbesartan Allergy (Unknown, Verified 01/18/25 11:27) rectal bleeding iron Allergy (Unknown, Verified 01/18/25 11:27) cough lisinopril Allergy (Unknown, Verified 01/18/25 11:27) unknown Sulfa (Sulfonamide Antibiotics) [SULFA (SULFONAMIDE ANTIBIOTICS)] Allergy (Unknown, Verified 01/18/25 11:27) HIVES carvedilol Adverse Reaction (Intermediate, Verified 01/18/25 11:27) Swelling Influenza Virus Vaccines Adverse Reaction (Intermediate, Verified 01/18/25 11:27) Unknown Medication List - Last Reconciled 01/18/25 by Faith Nieto PA-C blood pressure monitor (Blood Pressure Kit) As directed blood pressure monitor As directed blood sugar diagnostic (FreeStyle Lite Strips) As directed check the BS twice daily blood-glucose meter (FreeStyle Lite Meter kit) As directed cetirizine (Zyrtec) 10 mg PO DAILY PRN cholecalciferol (vitamin D3) 25 mcg PO DAILY cyanocobalamin (vitamin B-12) 1,000 mcg PO DAILY dapagliflozin propanediol (Farxiga) 5 mg PO DAILY dulaglutide (Trulicity) 0.75 mg (0.5 mL) subcut QWEEK lancets (FreeStyle Lancets) As directed check BS BID metoprolol tartrate 50 mg PO BID simvastatin 40 mg PO BEDTIME Do you need a note to return to daycare/school/sports/work: No HPI [facility] G0439 HPI Details 79-year-old female with past medical history of tobacco abuse, uncontrolled diabetes mellitus, COPD, hypertension, hypercholesterolemia and generalized anxiety disorder last seen 10/2024 coming in for annual exam. Presenting for an annual wellness visit, reports ongoing insomnia. Onset of insomnia linked to the discontinuation of a blood pressure medication previously prescribed by Dr. Iyer, resulting in disrupted sleep cycles. Insomnia is characterized by difficulty with both initiating and maintaining sleep nightly, without nocturnal dyspnea. Aside from insomnia, the patient does not express concerns regarding depression but does report infrequent anxiety episodes. Mammo: last completed 2021 - order placed DEXA: last completed 2021 - order placed Colonoscopy: declined Pap smear: declined HCP & [facility]: HCP completed discussed [facility] Medical History Nicotine dependence, cigarettes, uncomplicated Osteopenia Colonoscopy refused Vitamin D deficiency Allergic rhinitis Type 2 diabetes mellitus with hyperglycemia Post herpetic neuralgia Obesity (BMI 30-39.9) COPD (chronic obstructive pulmonary disease) Hypercholesterolemia Hypertension Surgical History History of nasal septoplasty History of cataract surgery Family History Father No problems noted. Mother No problems noted. Maternal Uncle Diabetes Maternal Uncle Heart problem Social History Household Members: None Housing: Apartment Do you presently have visiting nurse or other home services: No Alcohol intake: never Patient Tobacco Use Status: Current everyday Tobacco user Tobacco use type: Cigarette Cigarettes Per Day: 10 e-Cigarette/Vaping Use: Never Used Second Hand Smoke Exposure: Yes service: No Current occupational status: retired Cognitive needs: No Hearing needs: No Vision needs: No Questionnaire Medicare Wellness Checkup [age] What gender do you identify with?: female During the past 4 weeks, how much have you been bothered by emotional problems such as feeling anxious, depressed, irritable, sad or downhearted, and blue?: not at all During the past 4 weeks, has your physical & emotional health limited your social activities with family, friends, neighbors, or groups?: not at all During the past 4 weeks, how much bodily pain have you generally had?: no pain During the past 4 weeks, was someone available to help you if you needed & wanted help?: yes, as much as I wanted During the past 4 weeks, what was the hardest physical activity you could do for at least 2 minutes?: heavy Can you get to places out of walking distance without help? (For eg., can you travel alone on buses, taxis or drive your car?): Yes Can you go shopping for groceries or clothes without someone's help?: Yes Can you prepare your own meals?: Yes Can you do your housework without help?: Yes Because of any health problems, do you need the help of another person with your personal care needs such as eating, bathing, dressing or getting around the house?: No Can you handle your own money without help?: Yes During the past 4 weeks, how would you rate your health in general?: good Mini Mental State Exam (MMSE) Orientation What is the (year) (season) (date) (day) (month)?: year, season, date, day and month Where are we (state) (county) (town or city) (hospital) (floor)?: state, county, town or city, hospital/clinic and floor Score Score: 10 PHQ-9 Over the last 2 weeks, how often have you been bothered by any of the following problems? 1. Little interest or pleasure in doing things: not at all 2. Feeling down, depressed, or hopeless: not at all 3. Trouble falling or staying asleep, or sleeping too much: nearly every day 4. Feeling tired or having little energy: several days 5. Poor appetite or overeating: several days 6. Feeling bad about yourself - or that you are a failure or have let yourself or your family down: not at all 7. Trouble concentrating on things, such as reading the newspaper or watching television: not at all 8. Moving or speaking so slowly that other people could have noticed. Or the opposite - being so fidgety or restless that you have been moving around a lot more than usual: not at all 9. Thoughts that you would be better off or of hurting yourself in some way: not at all Total score: 5 Depression Screening Interpretation: Positive Depression Screening Follow-up: Existing condition and New Medication prescribed Depression Screening Done: Yes Source: Developed by Drs. South Tam, Valorie Saldana, Alfred Malhotra and colleagues, with an educational lia from [employer]. PHQ-2/PHQ-9 PHQ-2 Over the last 2 weeks, how often have you been bothered by any of the following problems? 1. Little interest or pleasure in doing things: not at all 2. Feeling down, depressed, or hopeless: not at all Total score: 0 If score is 3 or greater, continue 3. Trouble falling or staying asleep, or sleeping too much: nearly every day 4. Feeling tired or having little energy: several days 5. Poor appetite or overeating: several days 6. Feeling bad about yourself - or that you are a failure or have let yourself or your family down: not at all 7. Trouble concentrating on things, such as reading the newspaper or watching television: not at all 8. Moving or speaking so slowly that other people could have noticed. Or the opposite - being so fidgety or restless that you have been moving around a lot more than usual: not at all 9. Thoughts that you would be better off or of hurting yourself in some way: not at all Total score: 5 0-4 None-Minimal, 5-9 Mild, 10-14 Moderate, 15-19 Moderately Severe, 20-27 Severe Source: Developed by Drs. South Tam, Valorie Saldana, Alfred Malhotra and colleagues, with an educational lia from [employer]. Thrive Questionnaire Date Thrive assessed: 01/18/25 I am a: Patient What is your living situation today?: I have a steady place to live Within the past 12 months, did the food you bought not last and you didn't have the money to get more?: Never true Within the past 12 months, did you worry whether your food would run out before you got money to buy more?: Never true Do you have trouble paying for medicines?: No Do you have trouble getting transportation to medical appointments?: No Do you have trouble paying your heating and electricity bill?: No Do you have trouble taking care of your child, family member or friend?: No Do you have trouble with day-to-day activities such as bathing, preparing meals, shopping, managing finances, etc.?: No Are you currently unemployed and looking for a job?: No Are you interested in more education?: No Please select the resources that you would like help with: None Currently or been in a relationship where the following occur: No concerns reported THRIVE Score: 0 ALYSIA-7 AMB Questionnaire ALYSIA-7 Date ALYSIA - 7 assessed: 01/18/25 Feeling nervous, anxious, or on edge: 0 = Not at all Not being able to stop or control worryin = Not at all Worrying too much about different things: 0 = Not at all Trouble relaxin = Not at all Being so restless that it is hard to sit still: 0 = Not at all Becoming easily annoyed or irritable: 0 = Not at all Feeling afraid as if something awful might happen: 0 = Not at all Total ALYSIA-7 score (0-4 normal; 5-9 mild; 10-14 moderate; 15-21 severe): 0 Source: Developed by Drs. South Tam, Valorie Saldana, Alfred Malhotra and colleagues, with an educational lia from [employer]. Review of Systems Const Denies body aches, Denies chills, Reports fatigue, Denies fever(s), Denies headache(s) and Denies poor appetite Eyes Reports no additional complaints ENT Denies dysphagia, Denies dizziness, Denies headache(s) and Denies odynophagia Card Denies chest pain, Denies syncope, Denies edema, Denies irregular heart rhythm, Denies lightheadedness and Denies dyspnea Resp Denies cough and Denies dyspnea GI Denies abdominal pain, Denies constipation, Denies dysphagia, Denies diarrhea, Denies nausea, Denies odynophagia and Denies vomiting Reports no additional complaints Musc Reports no additional complaints and Denies abnormal gait Skin/Breast Reports system reviewed and no additional complaints, except as documented Neuro Denies abnormal gait, Denies dizziness, Denies syncope and Denies headache(s) Psych Reports no additional complaints Endo Reports fatigue Physical Exam Vital Signs: Last Vital Signs Pulse 66 01/18/25 10:50 BP 124/76 01/18/25 10:50 Pulse Ox 95 01/18/25 10:50 Oxygen Delivery Method Room Air 01/18/25 10:50 BMI result Body Mass Index 31.2 Const General: cooperative, healthy appearing, comfortable and no acute distress Orientation/consciousness: patient oriented x3 HEENT Head: Yes normocephalic Ears: hearing grossly normal bilaterally, external ears normal, TM's normal bilaterally and EAC's normal General nose exam: Normal external nose present Face and sinus: Yes normal facial exam and Yes sinuses nontender Mouth: Normal oral and palatal mucosa present and tongue normal Throat: Yes posterior oropharynx normal Eyes General: appearance normal, both eyes and all related structures Conjunctivae: conjunctivae normal Pupils: Equal, round and reactive pupils present EOM: EOMs intact bilaterally and No Nystagmus present Neck Neck: Yes normal visual inspection, Yes full ROM and Yes no lymphadenopathy Chest Chest palpation & inspection: normal inspection of the chest Resp Effort & Inspection: normal respiratory effort Auscultation: clear to auscultation bilaterally, no crackles, no rales, no rhonchi, no wheezes and breath sounds present Cardio Rate: regular rate Rhythm: regular rhythm Peripheral pulses: radial pulses present and dorsalis pedis present GI Inspection: Yes normal to inspection and No Abdominal wall edema Palpation (GI): Soft to palpation, not firm and nontender Auscultation: normal bowel sounds Rectal Exam - Female: deferred General: Yes no CVA tenderness Back/Spine/Pelvis Back: no CVA tenderness Skin General skin exam: no rashes or lesions noted Neuro Other: normal cognition General: patient oriented x3 Cranial nerves: Yes Equal, round and reactive pupils present, Yes Midline tongue present, Yes Ability to bilaterally elevate shoulders present and No Nystagmus present Gait exam (Neuro): Normal gait present Extrem General: Yes normal to inspection, Yes full ROM, No no pedal edema and No edema Psych Speech and movement: Normal speech and movement present Affect: normal affect Insight: Good insight present (Psych) Judgement: Good judgement present (Psych) Assessment & Plan Assessment & Plan (1) Generalized anxiety disorder: Comment: declined referral to counselling Code(s): F41.1 - Generalized anxiety disorder Plan: Plan to start on trazodone nightly for anxiety and sleep. (2) Vitamin B12 deficiency: Code(s): E53.8 - Deficiency of other specified B group vitamins Plan: Continue to monitor blood work. Patient is reminded about blood work (3) Vitamin D deficiency: Code(s): E55.9 - Vitamin D deficiency, unspecified Plan: Patient is reminded about blood work. (4) Type 2 diabetes mellitus with hyperglycemia: Comment: Dr. Montilla Code(s): E11.65 - Type 2 diabetes mellitus with hyperglycemia Qualifiers: Diabetes mellitus long-term insulin use: without long-term use Qualified Code(s): E11.65 - Type 2 diabetes mellitus with hyperglycemia Plan: Decrease the amount of carbohydrates such as pasta, bread, rice, and potatoes and limit the amount of sweets. Although fruits are generally healthy they should be eaten in moderation as they are still high in sugar. Hemoglobin A1c goal of less than 7%. (5) COPD (chronic obstructive pulmonary disease): Code(s): J44.9 - Chronic obstructive pulmonary disease, unspecified Qualifiers: COPD type: emphysema Emphysema type: panlobular Qualified Code(s): J43.1 - Panlobular emphysema Plan: Feels her breathing is well managed at this time without the use of inhalers. (6) Hypercholesterolemia: Code(s): E78.00 - Pure hypercholesterolemia, unspecified Plan: Avoid foods that are high in cholesterol such as red meat, fried foods, eggs and baked goods. Triglyceride goal of less than 150 and LDL goal of less than 100. Reminded about blood work (7) Hypertension: Code(s): I10 - Essential (primary) hypertension Qualifiers: Hypertension type: essential hypertension Qualified Code(s): I10 - Essential (primary) hypertension Plan: Continue on current blood pressure medication. Avoid salt intake and encourage healthy diet and regular exercise. (8) Osteopenia: Comment: (Bone Dexa Femoral T-score: 1.2 - 07/23/22) Code(s): M85.80 - Other specified disorders of bone density and structure, unspecified site Plan: Repeat DEXA scan ordered. (9) Obesity: Code(s): E66.9 - Obesity, unspecified Plan: Healthy diet and regular exercise is encouraged. (10) Nicotine dependence, cigarettes, uncomplicated: Code(s): F17.210 - Nicotine dependence, cigarettes, uncomplicated Plan: Smoking cigarettes and the use of tobacco can be harmful. We discussed the importance of stopping and options to aid in smoking cessation. Patient declined nicotine replacement therapy or medical management at this time. I also discussed lung cancer screening program at this visit which was declined by the patient. (11) Peripheral vascular disease: Code(s): I73.9 - Peripheral vascular disease, unspecified Plan: Advised good control of blood pressure, blood sugar and cholesterol. Compression stockings to be used as needed, elevate the legs when possible and exercise as tolerated. (12) Annual wellness visit: Code(s): Z00.00 - Encounter for general adult medical examination without abnormal findings Plan: Patient is up-to-date on all recommended vaccinations for her age. She is overdue for colonoscopy, mammogram, bone density and Pap smear. She is declining colonoscopy and Pap smear despite the recommendations to undergo this testing. She is also declining annual lung cancer screening program. Referral placed for mammogram and bone density today. Reminded patient about blood work as she is overdue. [place] of care was reviewed with patient patient was provided with a written screening schedule. [facility] forms were reviewed with patient patient advised to bring completed forms to office to be scanned to chart. Healthcare proxy form already completed Plan Patient was informed and verbally consented to the use of an ambient scribe for clinic note documentation during this visit. This note was constructed using voice recognition software. While every effort has been made to ensure accuracy and instrumentation chemist, still areas may have been included sometimes these areas may affect the content or meeting of the given symptoms. Total time spent caring for the patient today was 30 minutes. This includes time spent before the visit reviewing the chart, time spent during the visit, and time spent after the visit and documentation. Orders: Orders MM tomosynthesis screening BI Today Z12.31 - Encounter for screening mammogram for malignant neoplasm of breast XR DEXA axial skeleton Today M81.0 - Age-related osteoporosis without current pathological fracture, M85.80 - Other specified disorders of bone density and structure, unspecified site Medications: New trazodone 50 mg PO BEDTIME 90 tabs 2RF sleep Refilled simvastatin 40 mg PO BEDTIME 90 tabs 2RF E78.00 - Pure hypercholesterolemia, unspecified metoprolol tartrate 50 mg PO BID 180 tabs 2RF I10 - Essential (primary) hypertension Quality Reporting (2019) Depression/Bipolar (159/160/161/177) PHQ-9: Total score: 5 Coding Level of Care Code Medicare Subsequent (G0439) Diagnoses Generalized anxiety disorder F41.1 Vitamin B12 deficiency E53.8 Vitamin D deficiency E55.9 Type 2 diabetes mellitus with hyperglycemia, without long-term current use of insulin E11.65 Diabetes mellitus long-term insulin use: without roasterman use Panlobular emphysema J43.1 COPD type: emphysema Emphysema type: panlobular Hypercholesterolemia E78.00 Essential hypertension I10 Hypertension type: essential hypertension Osteopenia M85.80 Obesity E66.9 Nicotine dependence, cigarettes, uncomplicated F17.210 Peripheral vascular disease I73.9 Annual wellness visit Z00.00 CPT Codes Advance Care Planning - Time spent: 1-15 minutes, not on file ([id number]) Advance Care Planning Advance Care Planning discussion: Completed/Scanned Date of discussion: 01/18/25 Who was present: Patient Forms completed: MOL[facility] Time spent: 1-15 minutes, not on file Actual minutes spent: 5
[2025-01-18 10:50] VITALS: BP 124/76; PULSE 66; O2SAT 95; BMI 31.2
== END 2025-01-18 11:40 | disposition home or self-care (01) ==
PROVIDERS: PCP Internal Medicine
DX: Z00.00 Encounter for general adult medical examination without abnormal findings (principal); E11.65 Type 2 diabetes mellitus with hyperglycemia; J43.1 Panlobular emphysema; I73.9 Peripheral vascular disease, unspecified; F41.1 Generalized anxiety disorder; E53.8 Deficiency of other specified B group vitamins; E55.9 Vitamin D deficiency, unspecified; E78.00 Pure hypercholesterolemia, unspecified; I10 Essential (primary) hypertension; M85.80 Other specified disorders of bone density and structure, unspecified site; E66.9 Obesity, unspecified; F17.210 Nicotine dependence, cigarettes, uncomplicated

== ENCOUNTER 2025-02-06 08:04 | Outpatient (REF) | payer MEDICARE, MEDICAID, SELFPAY ==
[2025-02-06 08:17] LABS: MANUAL DIFF FLAG NO
[2025-02-06 08:32] LABS: Basophils Percent Auto 0.5 % (0-2); Eosinophils Absolute Auto 0.1 X10*3/uL (0.0-0.4); Eosinophils Percent Auto 1.8 % (0-4); Hematocrit 46.3 % (37.0-47.0); Hemoglobin 15.4 g/dl (12.0-16.0); Imm Gran Abs Auto 0.03 X10*3/uL (0.00-0.03); Imm Gran Pct Auto 0.4 % (0.0-0.4); Lymphocytes Absolute Auto 1.7 X10*3/uL (1.2-4.9); Lymphocytes Percent Auto 21.7 % (20-40); Mean Corpuscular HGB Conc 33.3 g/dl (31.0-35.0); Mean Corpuscular Hemoglobin 29.1 pg (27.0-33.0); Mean Corpuscular Volume 87.4 fL (80.0-98.0); Mean Platelet Volume 8.9 fL (9.4-12.3); Monocytes Absolute Auto 0.6 X10*3/uL (0.1-1.2); Monocytes Percent Auto 7.6 % (2-11); Neutrophils Absolute Auto 5.4 x10*3/uL (2.0-8.3); Platelet Count 238 X10*3/uL (160-400); Red Cell Distribution Width 13.4 % (11.0-16.0)
[2025-02-06 09:51] LABS: Creatinine Urine 33.29 mg/dL
[2025-02-06 09:59] LABS: Alanine Aminotransferase 17 U/L (0-31); Albumin Level 3.9 g/dL (3.5-5.0); Alkaline Phosphatase 71 U/L (39-117); Anion Gap 14 (12-20); Aspartate Amino Transferase 23 U/L (5-31); Bilirubin Total 0.5 mg/dL (0.0-1.0); Blood Urea Nitrogen 13 mg/dL (9-16); Calcium 9.4 mg/dL (8.4-10.2); Carbon Dioxide 29 mmol/L (22-29); Chloride 97 mmol/L (96-108); Cholesterol 156 mg/dL (<200); Estimated Glomerular Filt Rate > 60; Glucose Random 155 mg/dL (60-115); HDL Cholesterol 49 mg/dL (>40); LDL Cholesterol Calculated 86 mg/dL (<100); Sodium 135 mmol/L (135-145); Total Protein 7.7 g/dL (6.5-8.0); Triglycerides 109 mg/dL (<150)
[2025-02-06 10:03] LABS: Thyroid Stimulating Hormone 1.23 uIU/mL (0.32-4.0)
[2025-02-06 10:09] LABS: Free T4 (Free Thyroxine) 1.15 ng/dL (0.71-1.85); Vitamin D 25-OH Total 44.4 ng/mL (>30)
[2025-02-06 10:22] LABS: Folate 8.5 ng/mL (> or = 4.0); Vitamin B12 396 pg/mL (200-900)
== END 2025-02-06 08:05 | disposition home or self-care (01) ==
LOC: HO.LAB 08:04
PROVIDERS: Internal Medicine Nephrology; PCP Internal Medicine; Visit Provider Internal Medicine
DX: E11.65 Type 2 diabetes mellitus with hyperglycemia (principal); E78.00 Pure hypercholesterolemia, unspecified; F41.1 Generalized anxiety disorder; J43.1 Panlobular emphysema; I10 Essential (primary) hypertension; E66.9 Obesity, unspecified; G47.00 Insomnia, unspecified; F17.210 Nicotine dependence, cigarettes, uncomplicated
CPT/HCPCS: 36415; 80053; 80061; 82043; 82306; 82570; 82607; 82746; 83036; 84439; 84443; 85025; 96127; 99212

== ENCOUNTER 2025-02-06 08:42 | Outpatient (AMB) | payer MEDICARE, MEDICAID, SELFPAY ==
[2025-02-06 09:05] VITALS: BP 122/80; PULSE 66; O2SAT 94; BMI 31.6
--- NOTE | 2025-02-06 09:05 | MHC.PC.OV ---
Vital Signs 02/06/25 09:05 Height 5 ft 2 in Weight 173 lb BMI 31.6 BP 122/80 Blood Pressure Location Lt brachial Position Sitting Pulse 66 Pulse Source Pulse Oximeter Pulse Oximetry (%) 94 Oxygen Delivery Method Room Air Intake Visit Reasons: dm Case Management Assistant Required: No Accompanied by: Self / Same As Patient Allergies amlodipine Allergy (Unknown, Verified 02/06/25 09:22) leg swelling irbesartan Allergy (Unknown, Verified 02/06/25 09:22) rectal bleeding iron Allergy (Unknown, Verified 02/06/25 09:22) cough lisinopril Allergy (Unknown, Verified 02/06/25 09:22) unknown Sulfa (Sulfonamide Antibiotics) [SULFA (SULFONAMIDE ANTIBIOTICS)] Allergy (Unknown, Verified 02/06/25 09:22) HIVES carvedilol Adverse Reaction (Intermediate, Verified 02/06/25 09:22) Swelling Influenza Virus Vaccines Adverse Reaction (Intermediate, Verified 02/06/25 09:22) Unknown Medication List - Last Reconciled 02/06/25 by Faith Nieto PA-C blood pressure monitor (Blood Pressure Kit) As directed blood pressure monitor As directed blood sugar diagnostic (FreeStyle Lite Strips) As directed check the BS twice daily blood-glucose meter (FreeStyle Lite Meter kit) As directed cetirizine (Zyrtec) 10 mg PO DAILY PRN cholecalciferol (vitamin D3) 25 mcg PO DAILY cyanocobalamin (vitamin B-12) 1,000 mcg PO DAILY dapagliflozin propanediol (Farxiga) 5 mg PO DAILY dulaglutide (Trulicity) 0.75 mg (0.5 mL) subcut QWEEK lancets (FreeStyle Lancets) As directed check BS BID metoprolol tartrate 50 mg PO BID simvastatin 40 mg PO BEDTIME trazodone 50 mg PO BEDTIME Tobacco use date assessed: 02/06/25 Fall risk assessment: No Falls in past year Last assessed Fall Risk: 02/06/25 Dental Screening Dental Screen Date: 02/06/25 Did you have a dental visit in the last 12 months?: No Did you have a dental problem in the last 6 months where you did not have access to dental care?: No Was dental information given to patient?: No HPI dm HPI Details 79-year-old female with past medical history of tobacco abuse, uncontrolled diabetes mellitus, COPD, hypertension, hypercholesterolemia, generalized anxiety disorder last seen 12/2024 coming in for follow up. Type 2 Diabetes Mellitus: Previously noted with an HbA1c of 6.8% in October, now improved to 6.6%, indicating stable diabetes control. She has been adhering to her diabetes management plan and observed weight stabilizing. Previous issues with weight gain linked to antihypertensive medication now resolved, efforts include consistent walking. Essential Hypertension: Blood pressure is currently controlled with medication. The patient reported cessation of a previous medication due to adverse effects. Obesity: The patient's weight has not decreased but is stabilized. She engages in daily walking. Past weight gain was attributed to a previously prescribed antihypertensive medication. Insomnia: Originally prescribed trazodone but opted to use Tylenol PM for intermittent sleep disturbances instead, resulting in acceptable sleep quality. Cigarette Use: Continued usage with reported difficulty in cessation. Declining lung cancer screening program REPLACED BY [facility] Medical History Nicotine dependence, cigarettes, uncomplicated Osteopenia Colonoscopy refused Vitamin D deficiency Allergic rhinitis Type 2 diabetes mellitus with hyperglycemia Post herpetic neuralgia Obesity (BMI 30-39.9) COPD (chronic obstructive pulmonary disease) Hypercholesterolemia Hypertension Surgical History History of nasal septoplasty History of cataract surgery Family History Father No problems noted. Mother No problems noted. Maternal Uncle Diabetes Maternal Uncle Heart problem Social History Household Members: None Housing: Apartment Do you presently have visiting nurse or other home services: No Alcohol intake: never Patient Tobacco Use Status: Current everyday Tobacco user Tobacco use type: Cigarette Cigarettes Per Day: 10 e-Cigarette/Vaping Use: Never Used Second Hand Smoke Exposure: Yes service: No Current occupational status: retired Cognitive needs: No Hearing needs: No Vision needs: No Questionnaire PHQ-9 Over the last 2 weeks, how often have you been bothered by any of the following problems? 1. Little interest or pleasure in doing things: not at all 2. Feeling down, depressed, or hopeless: not at all 3. Trouble falling or staying asleep, or sleeping too much: nearly every day 4. Feeling tired or having little energy: several days 5. Poor appetite or overeating: several days 6. Feeling bad about yourself - or that you are a failure or have let yourself or your family down: not at all 7. Trouble concentrating on things, such as reading the newspaper or watching television: not at all 8. Moving or speaking so slowly that other people could have noticed. Or the opposite - being so fidgety or restless that you have been moving around a lot more than usual: not at all 9. Thoughts that you would be better off or of hurting yourself in some way: not at all Total score: 5 Depression Screening Interpretation: Positive Depression Screening Follow-up: Existing condition and New Medication prescribed Depression Screening Done: Yes Source: Developed by Drs. South Tam, Valorie Saldana, Alfred Malhotra and colleagues, with an educational ila from [employer]. Thrive Questionnaire Date Thrive assessed: 02/06/25 I am a: Patient What is your living situation today?: I have a steady place to live Within the past 12 months, did the food you bought not last and you didn't have the money to get more?: Never true Within the past 12 months, did you worry whether your food would run out before you got money to buy more?: Never true Do you have trouble paying for medicines?: No Do you have trouble getting transportation to medical appointments?: No Do you have trouble paying your heating and electricity bill?: No Do you have trouble taking care of your child, family member or friend?: No Do you have trouble with day-to-day activities such as bathing, preparing meals, shopping, managing finances, etc.?: No Are you currently unemployed and looking for a job?: No Are you interested in more education?: No Please select the resources that you would like help with: None Currently or been in a relationship where the following occur: No concerns reported THRIVE Score: 0 AUDIT C Alcohol Use Questionnaire (AUDIT-C) 1. How often do you have a drink containing alcohol?: Never 3. How often do you have six or more drinks on one occasion?: Never Total Score: 0 Score Reviewed/Action Taken: No ALYSIA-7 AMB Questionnaire ALYSIA-7 Date ALYSIA - 7 assessed: 02/06/25 Feeling nervous, anxious, or on edge: 0 = Not at all Not being able to stop or control worryin = Not at all Worrying too much about different things: 0 = Not at all Trouble relaxin = Not at all Being so restless that it is hard to sit still: 0 = Not at all Becoming easily annoyed or irritable: 0 = Not at all Feeling afraid as if something awful might happen: 0 = Not at all Total ALYSIA-7 score (0-4 normal; 5-9 mild; 10-14 moderate; 15-21 severe): 0 Source: Developed by Drs. South Tam, Valorie Saldana, Alfred Malhotra and colleagues, with an educational lia from [employer]. Review of Systems Const Denies body aches, Denies chills, Denies fever(s), Denies headache(s) and Denies poor appetite Eyes Reports no additional complaints ENT Denies dizziness and Denies headache(s) Card Denies chest pain, Denies syncope, Denies lightheadedness and Denies dyspnea Resp Denies dyspnea GI Denies abdominal pain, Denies nausea and Denies vomiting Reports no additional complaints Musc Reports no additional complaints and Denies abnormal gait Skin/Breast Reports system reviewed and no additional complaints, except as documented Neuro Denies abnormal gait, Denies dizziness, Denies syncope and Denies headache(s) Psych Reports no additional complaints Physical exam (Primary Care) Vital Signs: Last Vital Signs Pulse 66 02/06/25 09:05 BP 122/80 02/06/25 09:05 Pulse Ox 94 02/06/25 09:05 Oxygen Delivery Method Room Air 02/06/25 09:05 BMI result Body Mass Index 31.6 BMI Assessment/Plan discussion: High BMI High, discussed plan: lifestyle, dietary and physical activity Tobacco/Smoking Status: Tobacco use Status Tobacco use date assessed 02/06/25 02/06/25 09:08 Patient Tobacco Use Status Current everyday Tobacco 02/06/25 09:08 Tobacco use type Cigarette 02/06/25 09:08 e-Cigarette/Vaping Use Never Used 02/06/25 09:08 Are you ready to quit: No Tobacco cessation counseling provided: Yes Items discussed: Nicotine replacement Number of minutes spent counselin CPT code: Less than 3 minutes PHQ-9: PHQ-9 Score PHQ-9: Total score 5 02/06/25 09:21 Depression Screening Interpretation: Positive Depression Screening Follow-up: Existing condition and New Medication prescribed Thrive Assessment: Date of Thrive Assessment Date Thrive assessed 02/06/25 02/06/25 09:08 Currently or been in a relationship where the following occur: No concerns reported Const General: cooperative, healthy appearing, comfortable and no acute distress Orientation/consciousness: patient oriented x3 HENMT Head: Yes normocephalic Ears: hearing grossly normal bilaterally General nose exam: Normal external nose present Eyes General: appearance normal, both eyes and all related structures Conjunctivae: conjunctivae normal Neck Neck: Yes full ROM and Yes no lymphadenopathy Resp Effort & Inspection: normal respiratory effort Auscultation: clear to auscultation bilaterally, no crackles, no rales, no rhonchi and no wheezes Cardio Rate: regular rate Rhythm: regular rhythm Skin General skin exam: no rashes or lesions noted Neuro General: patient oriented x3 Gait exam (Neuro): Normal gait present Extrem General: Yes normal to inspection, Yes full ROM and No edema Psych Affect: normal affect Attitude: cooperative Insight: Good insight present (Psych) Judgement: Good judgement present (Psych) Results AMB Hemoglobin A1c AMB Hemoglobin A1c 6.6 % Last Edit by VÍCTOR Johnson on 02/06/25 09:27 Coding Level of Care Code Est Pt Level 3 (30757) Diagnoses Generalized anxiety disorder F41.1 Type 2 diabetes mellitus with hyperglycemia, without long-term current use of insulin E11.65 Diabetes mellitus joint terminal attack controller insulin use: without joint terminal attack controller use 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 Plan to switch to hydroxyzine as needed for anxiety and sleep (2) Type 2 diabetes mellitus with hyperglycemia: Comment: Dr. Montilla Code(s): E11.65 - Type 2 diabetes mellitus with hyperglycemia Category: Medical Qualifiers: Diabetes mellitus joint terminal attack controller insulin use: without joint terminal attack controller use Qualified Code(s): E11.65 - Type 2 diabetes mellitus with hyperglycemia Plan: Decrease the amount of carbohydrates such as pasta, bread, rice, and potatoes and limit the amount of sweets. Although fruits are generally healthy they should be eaten in moderation as they are still high in sugar. Hemoglobin A1c goal of less than 7%. A1c in the clinic today 6.6% continue on current medication regimen. (3) COPD (chronic obstructive pulmonary disease): Code(s): J44.9 - Chronic obstructive pulmonary disease, unspecified Category: Medical Qualifiers: COPD type: emphysema Emphysema type: panlobular Qualified Code(s): J43.1 - Panlobular emphysema Plan: Feels her breathing is well managed at this time without the use of inhalers. (4) Hypercholesterolemia: Code(s): E78.00 - Pure hypercholesterolemia, unspecified Category: Medical Plan: Avoid foods that are high in cholesterol such as red meat, fried foods, eggs and baked goods. Triglyceride goal of less than 150 and LDL goal of less than 100. Blood work completed today currently pending. (5) Hypertension: Code(s): I10 - Essential (primary) hypertension Category: Medical Qualifiers: Hypertension type: essential hypertension Qualified Code(s): I10 - Essential (primary) hypertension Plan: Continue on current blood pressure medication. Avoid salt intake and encourage healthy diet and regular exercise. (6) Obesity: Code(s): E66.9 - Obesity, unspecified Category: Medical Plan: Healthy diet and regular exercise is encouraged. Plan to restart on Trulicity for management of obesity and diabetes (7) Nicotine dependence, cigarettes, uncomplicated: Code(s): F17.210 - Nicotine dependence, cigarettes, uncomplicated Category: Medical Plan: Smoking cigarettes and the use of tobacco can be harmful. We discussed the importance of stopping and options to aid in smoking cessation. Patient declined nicotine replacement therapy or medical management at this time. I also discussed lung cancer screening program at this visit which was declined by the patient. Plan This note was constructed using voice recognition software. While every effort has been made to ensure accuracy and building maintenance mechanic, still areas may have been included sometimes these areas may affect the content or meeting of the given symptoms. Total time spent caring for the patient today was 20 minutes. This includes time spent before the visit reviewing the chart, time spent during the visit, and time spent after the visit and documentation. Patient was informed and verbally consented to the use of an ambient scribe for clinic note documentation during this visit. Orders: Orders AMB Hemoglobin A1c Today Z13.9 - Encounter for screening, unspecified Medications: New hydroxyzine HCl 25 mg PO BEDTIME 30 tabs 0RF Discontinued trazodone Discontinued Reason: Patient no longer taking 50 mg PO BEDTIME 90 tabs 2RF sleep
== END 2025-02-06 09:54 | disposition home or self-care (01) ==
LOC: HO.HMCH 08:42
PROVIDERS: PCP Internal Medicine
DX: E11.65 Type 2 diabetes mellitus with hyperglycemia (principal); J43.1 Panlobular emphysema; E66.9 Obesity, unspecified; Z68.31 Body mass index [BMI] 31.0-31.9, adult; F41.1 Generalized anxiety disorder; E78.00 Pure hypercholesterolemia, unspecified; I10 Essential (primary) hypertension; F17.210 Nicotine dependence, cigarettes, uncomplicated

== ENCOUNTER 2025-06-08 09:00 | Outpatient (AMB) | payer MEDICARE, MEDICAID, SELFPAY ==
--- NOTE | 2025-06-08 09:11 | A.OFFPC_ITS ---
Vital Signs 06/08/25 09:13 Height 5 ft 2 in Weight 172 lb 8 oz BMI 31.5 BP 142/88 H Blood Pressure Location Rt brachial Position Sitting Pulse 64 Pulse Source Pulse Oximeter Temp 97.1 F Temp Source Temporal Artery Scan Pulse Oximetry (%) 96 Oxygen Delivery Method Room Air Intake Visit Reasons: f/u DM and weight Allergies amlodipine Allergy (Unknown, Verified 06/08/25 09:11) leg swelling irbesartan Allergy (Unknown, Verified 06/08/25 09:11) rectal bleeding iron Allergy (Unknown, Verified 06/08/25 09:11) cough lisinopril Allergy (Unknown, Verified 06/08/25 09:11) unknown Sulfa (Sulfonamide Antibiotics) (SULFA (SULFONAMIDE ANTIBIOTICS)) Allergy (Unknown, Verified 06/08/25 09:11) HIVES carvedilol Adverse Reaction (Intermediate, Verified 06/08/25 09:11) Swelling Influenza Virus Vaccines Adverse Reaction (Intermediate, Verified 06/08/25 09:11) Unknown Medication List - Last Reconciled 06/08/25 by Sd Quintero MD blood pressure monitor (Blood Pressure Kit) As directed blood pressure monitor As directed blood sugar diagnostic (FreeStyle Lite Strips) As directed check the BS twice daily blood-glucose meter (FreeStyle Lite Meter kit) As directed cetirizine (Zyrtec) 10 mg PO DAILY PRN cholecalciferol (vitamin D3) 25 mcg PO DAILY dapagliflozin propanediol 10 mg PO DAILY hydroxyzine HCl 25 mg PO BEDTIME lancets (FreeStyle Lancets) As directed check BS BID metoprolol tartrate 50 mg PO BID simvastatin 40 mg PO BEDTIME Tobacco use date assessed: 06/08/25 Fall risk assessment: No Falls in past year Last assessed Fall Risk: 06/08/25 Dental Screening Dental Screen Date: 02/06/25 Did you have a dental visit in the last 12 months?: No Did you have a dental problem in the last 6 months where you did not have access to dental care?: No Was dental information given to patient?: No [facility] Medical History Nicotine dependence, cigarettes, uncomplicated Osteopenia Colonoscopy refused Vitamin D deficiency Allergic rhinitis Type 2 diabetes mellitus with hyperglycemia Post herpetic neuralgia Obesity (BMI 30-39.9) COPD (chronic obstructive pulmonary disease) Hypercholesterolemia Hypertension Surgical History History of nasal septoplasty History of cataract surgery Family History Father No problems noted. Mother No problems noted. Maternal Uncle Diabetes Maternal Uncle Heart problem Social History Household Members: None Housing: Apartment Do you presently have visiting nurse or other home services: No Alcohol intake: never Patient Tobacco Use Status: Current everyday Tobacco user Tobacco use type: Cigarette Cigarettes Per Day: 10 e-Cigarette/Vaping Use: Never Used Second Hand Smoke Exposure: Yes service: No Current occupational status: retired Cognitive needs: No Hearing needs: No Vision needs: No Questionnaire PHQ-9 Over the last 2 weeks, how often have you been bothered by any of the following problems? 1. Little interest or pleasure in doing things: not at all 2. Feeling down, depressed, or hopeless: not at all 3. Trouble falling or staying asleep, or sleeping too much: not at all 4. Feeling tired or having little energy: not at all 5. Poor appetite or overeating: not at all 6. Feeling bad about yourself - or that you are a failure or have let yourself or your family down: not at all 7. Trouble concentrating on things, such as reading the newspaper or watching television: not at all 8. Moving or speaking so slowly that other people could have noticed. Or the opposite - being so fidgety or restless that you have been moving around a lot more than usual: not at all 9. Thoughts that you would be better off or of hurting yourself in some way: not at all Total score: 0 Depression Screening Interpretation: Negative Depression Screening Done: Yes Source: Developed by Drs. South Tam, Valorie Saldana, Alfred Malhotra and colleagues, with an educational lia from [employer]. Thrive Questionnaire Date Thrive assessed: 02/06/25 I am a: Patient What is your living situation today?: I have a steady place to live Within the past 12 months, did the food you bought not last and you didn't have the money to get more?: Never true Within the past 12 months, did you worry whether your food would run out before you got money to buy more?: Never true Do you have trouble paying for medicines?: I choose not to answer this question Do you have trouble getting transportation to medical appointments?: I choose not to answer this question Do you have trouble paying your heating and electricity bill?: I choose not to answer this question Do you have trouble taking care of your child, family member or friend?: I choose not to answer this question Do you have trouble with day-to-day activities such as bathing, preparing meals, shopping, managing finances, etc.?: I choose not to answer this question Are you currently unemployed and looking for a job?: I choose not to answer this question Are you interested in more education?: I choose not to answer this question Please select the resources that you would like help with: None Currently or been in a relationship where the following occur: No concerns reported THRIVE Score: 0 AUDIT C Alcohol Use Questionnaire (AUDIT-C) 1. How often do you have a drink containing alcohol?: Never 3. How often do you have six or more drinks on one occasion?: Never Total Score: 0 ALYSIA-7 AMB Questionnaire ALYSIA-7 Date ALYSIA - 7 assessed: 02/06/25 Feeling nervous, anxious, or on edge: 0 = Not at all Not being able to stop or control worryin = Not at all Worrying too much about different things: 0 = Not at all Trouble relaxin = Not at all Being so restless that it is hard to sit still: 0 = Not at all Becoming easily annoyed or irritable: 0 = Not at all Feeling afraid as if something awful might happen: 0 = Not at all Total ALYSIA-7 score (0-4 normal; 5-9 mild; 10-14 moderate; 15-21 severe): 0 Source: Developed by Drs. South Tam, Valorie Saldana, Alfred Malhotra and colleagues, with an educational lia from [employer]. Physical exam (Primary Care) Vital Signs: Last Vital Signs Temp 97.1 F 06/08/25 09:13 Pulse 64 06/08/25 09:13 BP 142/88 H 06/08/25 09:13 Pulse Ox 96 06/08/25 09:13 Oxygen Delivery Method Room Air 06/08/25 09:13 BMI result Body Mass Index 31.5 Tobacco/Smoking Status: Tobacco use Status Tobacco use date assessed 06/08/25 06/08/25 09:18 Patient Tobacco Use Status Current everyday Tobacco 06/08/25 09:18 Tobacco use type Cigarette 06/08/25 09:18 e-Cigarette/Vaping Use Never Used 06/08/25 09:18 PHQ-9: PHQ-9 Score PHQ-9: Total score 0 06/08/25 09:54 Depression Screening Interpretation: Negative Thrive Assessment: Date of Thrive Assessment Date Thrive assessed 02/06/25 06/08/25 09:18 Currently or been in a relationship where the following occur: No concerns reported Const General: alert; No acute distress Eyes Conjunctivae: conjunctivae normal Resp Auscultation: clear to auscultation bilaterally Cardio Rate: regular rate Rhythm: regular rhythm GI Inspection: Yes normal to inspection Extrem General: Yes normal to inspection and No edema Results AMB Hemoglobin A1c AMB Hemoglobin A1c 7.3 % Last Edit by Rebekah Mane CMA on 06/08/25 09:22 Results Reviewed Results Reviewed: Laboratory Last Values Hgb A1c (Clinic) 7.3 % (4.0-6.0) H 06/08/25 09:18 Coding Level of Care Code Est Pt Level 4 (48207) Complex EM visit Add On G2211 Diagnoses Type 2 diabetes mellitus with hyperglycemia, without long-term current use of insulin E11.65 Diabetes mellitus terminal computer operator insulin use: without terminal computer operator use Hypercholesterolemia E78.00 Essential hypertension I10 Hypertension type: essential hypertension Generalized anxiety disorder F41.1 Osteopenia M85.80 Obesity E66.9 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 Montilla Code(s): E11.65 - Type 2 diabetes mellitus with hyperglycemia Category: Medical Qualifiers: Diabetes mellitus terminal computer operator insulin use: without terminal computer operator use Qualified Code(s): E11.65 - Type 2 diabetes mellitus with hyperglycemia Plan: Decrease the amount of carbohydrate intake, pasta, bread, rice and potatoes are all sugar and that is aside from all the sweet stuff, remember that fruits are good but they are Sweet also. Hemoglobin A1c goal of less than 7.0. Patient on Farxiga 5 mg once a day only (2) Hypercholesterolemia: Code(s): E78.00 - Pure hypercholesterolemia, unspecified Category: Medical Plan: Avoid fried foods, chicken skin, eggs, butter margarine, pastries and meat. Be it pork or beef they have a lot of cholesterol LDL goal of less than 100 and triglyceride of less than 150 patient is on simvastatin 40 mg once a day (3) Hypertension: Code(s): I10 - Essential (primary) hypertension Category: Medical Qualifiers: Hypertension type: essential hypertension Qualified Code(s): I10 - Essential (primary) hypertension Plan: Continue with blood pressure medication. Decrease salt intake and exercise on metoprolol 50 mg twice a day (4) Generalized anxiety disorder: Comment: declined referral to counselling Code(s): F41.1 - Generalized anxiety disorder Category: Medical Plan: Stable (5) Osteopenia: Comment: (Bone Dexa Femoral T-score: 1.2 - 07/23/22) Code(s): M85.80 - Other specified disorders of bone density and structure, unspecified site Category: Medical Plan: Reminded about bone density (6) Obesity: Code(s): E66.9 - Obesity, unspecified Category: Medical Plan: Diet and exercise (7) COPD (chronic obstructive pulmonary disease): Code(s): J44.9 - Chronic obstructive pulmonary disease, unspecified Category: Medical Qualifiers: COPD type: emphysema Emphysema type: panlobular Qualified Code(s): J43.1 - Panlobular emphysema Plan: Patient is strongly advised to stop smoking no inhalers needed (8) Nicotine dependence, cigarettes, uncomplicated: Code(s): F17.210 - Nicotine dependence, cigarettes, uncomplicated Category: Medical Plan: Patient is strongly advised to stop smoking Plan History of Present Illness The patient is a 79-year-old female presenting for a follow-up visit. She has a history of diabetes mellitus, with the last hemoglobin A1c recorded at 7.3, indicating suboptimal control. The patient is currently on Farxiga 5 mg daily, with plans to increase the dose to 10 mg to improve glycemic control. The patient has generalized anxiety disorder, which was noted during the visit. She has chronic obstructive pulmonary disease (COPD) and is a smoker, which exacerbates her condition. The patient has been advised to stop smoking, but she continues to smoke, albeit less frequently after 4 PM. The patient has hypertension, currently managed with metoprolol 50 mg twice daily. Her blood pressure was noted to be high during the visit, and adjustments to her medication regimen are being considered. She also has hypercholesterolemia, with an LDL cholesterol level of 86, which is within the target range. The patient is on simvastatin 40 mg daily to manage her cholesterol levels. The patient is obese, which complicates her management of diabetes and hypertension. She reports difficulty in losing weight despite efforts, and previous attempts with medications like Trulicity were discontinued due to side effects. Preventative care measures were discussed, including the patient's decision to decline colonoscopy and mammogram screenings. Her last bone density test was in June 2022, and she has been reminded to schedule another. Health Maintenance - Declined colonoscopy and mammogram screenings - Last bone density test in June 2022; reminder to schedule another - Advised to stop smoking Social History - Tobacco use: Smoker, reduces smoking after 4 PM - Exercise: Walks dog in the morning Review of Systems - Respiratory: Reports no breathing problems - Cardiovascular: Reports high blood pressure - Endocrine: Reports difficulty in losing weight Physical Exam - Cardiovascular: Blood pressure noted to be high Results - Labs: Hemoglobin A1c 7.3, LDL cholesterol 86, blood sugar 155 - Labs: Normal blood count, normal electrolytes, normal renal and liver function, normal thyroid function Plan The management plan for diabetes includes increasing the dose of Farxiga from 5 mg to 10 mg daily to achieve better glycemic control, with a target hemoglobin A1c of less than 7.0. For hypertension, the patient's current regimen of metoprolol 50 mg twice daily will be reassessed, and a new medication, losartan, is being considered to better manage her blood pressure. The patient is advised to continue simvastatin 40 mg daily to maintain her LDL cholesterol level below 100 mg/dL. Preventative care measures include reminders for scheduling a bone density test and reconsidering the decision to decline colonoscopy and mammogram screenings. The patient is strongly advised to cease smoking to improve her COPD and overall health. Patient was informed and verbally consented to the use of an ambient scribe for clinic note documentation during this visit. Discussion Notes During the visit, I discussed with the patient the importance of managing her diabetes more effectively by increasing her Farxiga dosage to 10 mg daily, aiming for a hemoglobin A1c of less than 7.0. We also talked about her hypertension management, considering a switch to losartan to better control her blood pressure, and maintaining her current simvastatin regimen to keep her LDL cholesterol within target levels. I emphasized the need for preventative care, including scheduling a bone density test and reconsidering her decision to decline colonoscopy and mammogram screenings. Additionally, I strongly advised her to stop smoking to improve her COPD and overall health. Patient Instructions - Increase Farxiga dose to 10 mg daily for better blood sugar control. - Continue simvastatin 40 mg daily to maintain cholesterol levels. - Schedule a bone density test and reconsider colonoscopy and mammogram screenings. - Strongly advised to stop smoking to improve overall health. Orders: Orders AMB Hemoglobin A1c Today Z13.9 - Encounter for screening, unspecified MM tomosynthesis screening BI Today I10 - Essential (primary) hypertension, Z12.31 - Encounter for screening mammogram for malignant neoplasm of breast Medications: Changed From dapagliflozin propanediol (Farxiga) 5 mg PO DAILY 30 tabs 9RF E11.65 - Type 2 diabetes mellitus with hyperglycemia To dapagliflozin propanediol 10 mg PO DAILY 30 tabs 7RF E11.65 - Type 2 diabetes mellitus with hyperglycemia
[2025-06-08 09:13] VITALS: BP 142/88; PULSE 64; TEMP 36.2; O2SAT 96; BMI 31.5
== END 2025-06-08 10:20 | disposition home or self-care (01) ==
LOC: HO.HMCH 09:01
PROVIDERS: PCP Internal Medicine; Visit Provider Internal Medicine
DX: E11.65 Type 2 diabetes mellitus with hyperglycemia (principal); E78.00 Pure hypercholesterolemia, unspecified; I10 Essential (primary) hypertension; F41.1 Generalized anxiety disorder; M85.80 Other specified disorders of bone density and structure, unspecified site; E66.9 Obesity, unspecified; J43.1 Panlobular emphysema; F17.210 Nicotine dependence, cigarettes, uncomplicated; Z13.9 Encounter for screening, unspecified

== ENCOUNTER → 2025-06-08 09:00 | Outpatient (BNVA) | payer MEDICARE, MEDICAID, SELFPAY | PROVIDERS: PCP Internal Medicine; Visit Provider Internal Medicine | DX: E11.65 Type 2 diabetes mellitus with hyperglycemia (principal); E78.00 Pure hypercholesterolemia, unspecified; I10 Essential (primary) hypertension; F41.1 Generalized anxiety disorder; M85.80 Other specified disorders of bone density and structure, unspecified site; E66.9 Obesity, unspecified; Z68.31 Body mass index [BMI] 31.0-31.9, adult; J43.1 Panlobular emphysema; F17.210 Nicotine dependence, cigarettes, uncomplicated; Z71.6 Tobacco abuse counseling; Z71.3 Dietary counseling and surveillance | CPT/HCPCS: 83036; 99212 ==

== ENCOUNTER 2025-07-28 10:30 | Outpatient (REF) | payer MEDICARE, MEDICAID, SELFPAY ==
[2025-07-28 13:13] LABS: Anion Gap 12 (12-20); Blood Urea Nitrogen 16 mg/dL (9-16); Carbon Dioxide 29 mmol/L (22-29); Chloride 96 mmol/L (96-108); Estimated Glomerular Filt Rate > 60; Potassium 4.4 mmol/L (3.3-5.1); Sodium 133 mmol/L (135-145)
[2025-07-28 14:01] LABS: Protein/Creatinine Ratio, Ur 0.27 (<0.2); Total Protein Urine Random 8 mg/dL (<12)
== END 2025-07-28 10:31 | disposition home or self-care (01) ==
LOC: HO.10HDL 10:30
PROVIDERS: Visit Provider Internal Medicine Nephrology
DX: I10 Essential (primary) hypertension (principal); E87.1 Hypo-osmolality and hyponatremia
CPT/HCPCS: 36415; 80051; 82565; 82570; 84156; 84520; 99212

== ENCOUNTER 2025-07-28 10:43 | Outpatient (AMB) | payer MEDICARE, MEDICAID, SELFPAY ==
--- NOTE | 2025-07-28 10:56 | HO.NEPHOV ---
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 Accompanied by: Self / Same As Patient Allergies amlodipine Allergy (Unknown, Verified 07/28/25 11:03) leg swelling irbesartan Allergy (Unknown, Verified 07/28/25 11:03) rectal bleeding iron Allergy (Unknown, Verified 07/28/25 11:03) cough lisinopril Allergy (Unknown, Verified 07/28/25 11:03) unknown Sulfa (Sulfonamide Antibiotics) (SULFA (SULFONAMIDE ANTIBIOTICS)) Allergy (Unknown, Verified 07/28/25 11:03) HIVES carvedilol Adverse Reaction (Intermediate, Verified 07/28/25 11:03) Swelling Influenza Virus Vaccines Adverse Reaction (Intermediate, Verified 07/28/25 11:03) Unknown HPI Comments Details: Heather was seen in follow up for history of hyponatremia and hyperkalemia on a backdrop of hypertension. She is a smoker. She denies any nausea, vomiting or diarrhea. She has no history of hypoglycemia. She has no history of liver, kidney or heart failure. She has not having any depression and is not on any antidepressant medications. She is a diabetic. She has no weakness or mental status changes. She has no significant edema. Her blood pressure is very controlled. She denies any other systemic symptoms. She had edema after she stopped her Amlodipine. She feels well today. States has a hard time sleeping but otherwise feels well. [facility] Medical History (Reviewed 06/08/25 @ 09: by Rebekah Mane CMA) Nicotine dependence, cigarettes, uncomplicated Osteopenia Colonoscopy refused Vitamin D deficiency Allergic rhinitis Type 2 diabetes mellitus with hyperglycemia Post herpetic neuralgia Obesity (BMI 30-39.9) COPD (chronic obstructive pulmonary disease) Hypercholesterolemia Hypertension Surgical History History of nasal septoplasty History of cataract surgery Family History Father No problems noted. Mother No problems noted. Maternal Uncle Diabetes Maternal Uncle Heart problem Social History Household Members: None Housing: Apartment Do you presently have visiting nurse or other home services: No Alcohol intake: never Patient Tobacco Use Status: Current everyday Tobacco user Tobacco use type: Cigarette Cigarettes Per Day: 10 e-Cigarette/Vaping Use: Never Used Second Hand Smoke Exposure: Yes service: No Current occupational status: retired Cognitive needs: No Hearing needs: No Vision needs: No Review of Systems Const All systems reviewed & are unremarkable except as noted in HPI and below Physical Exam Vital Signs: Last Vital Signs Pulse 63 07/28/25 11:03 BP 122/86 07/28/25 11:03 Pulse Ox 98 07/28/25 11:03 Oxygen Delivery Method Room Air 07/28/25 11:03 BMI result Body Mass Index 31.7 Const General: comfortable and no acute distress Orientation/consciousness: patient oriented x3 Neck Neck: Yes supple Resp Auscultation: clear to auscultation bilaterally Cardio Jugular venous distension: no JVD Rate: regular rate GI Palpation (GI): Soft to palpation Auscultation: normal bowel sounds General: Yes no CVA tenderness Back/Spine/Pelvis Back: no CVA tenderness Skin General skin exam: no rashes or lesions noted Neuro General: patient oriented x3 and moves all extremities Extrem General: Yes edema (trace BLE edema. ) Results Reviewed Nephrology Results: Hgb, (12.0-16.0) 15.4 g/dl 02/06/25 WBC, (4.8-10.8) 8.0 X10*3/uL 02/06/25 Plt Count, (160-400) 238 X10*3/uL 02/06/25 Sodium, (135-145) 135 mmol/L 02/06/25 Potassium, (3.3-5.1) 5.0 mmol/L Δ 02/06/25 Chloride, (96-108) 97 mmol/L 02/06/25 Carbon Dioxide, (22-29) 29 mmol/L 02/06/25 BUN, (9-16) 13 mg/dL 02/06/25 Creatinine, (0.5-1.4) 0.88 mg/dL 02/06/25 Calcium, (8.4-10.2) 9.4 mg/dL 02/06/25 Urine Creatinine 33.29 mg/dL 02/06/25 Assessment & Plan Assessment & Plan (1) Hyponatremia: Code(s): E87.1 - Hypo-osmolality and hyponatremia Category: Medical (2) Hypertension: Code(s): I10 - Essential (primary) hypertension Category: Medical Qualifiers: Hypertension type: essential hypertension Qualified Code(s): I10 - Essential (primary) hypertension Plan Heather had euvolemic hyponatremia. She had follow up blood work this morning which is pending. She is not taking any hydrochlorothiazide. She does not have any hypovolemia or hypervolemia. She has no history of any hypotension, depression or taking antidepressant medications. She has not known to have any thyroid or adrenal issues. Her urine and serum osmolality, serum calcium, random cortisol, thyroid function were OK. Her BP is well controlled on metoprolol at home ( She had discontinued her Amlodipine due to edema). I did not make any other medication changes today. All these have been discussed in detail. Answered all questions. Labs ordered. Follow-up given. Coding Level of Care Code Est Pt Level 4 (96818) Diagnoses Hyponatremia E87.1 Essential hypertension I10 Hypertension type: essential hypertension
[2025-07-28 11:03] VITALS: BP 122/86; PULSE 63; O2SAT 98; BMI 31.7
== END 2025-07-28 11:22 | disposition home or self-care (01) ==
PROVIDERS: PCP Internal Medicine; Visit Provider Nurse Practitioner Family
DX: E87.1 Hypo-osmolality and hyponatremia (principal); I10 Essential (primary) hypertension
CPT/HCPCS: 99214

== ENCOUNTER 2025-09-28 08:57 | Outpatient (AMB) | payer MEDICARE, MEDICAID, SELFPAY ==
--- NOTE | 2025-09-28 09:07 | MHC.PC.OV ---
Vital Signs 09/28/25 09:08 Height 5 ft 2 in Weight 180 lb BMI 32.9 BP 140/100 H Blood Pressure Location Lt brachial Position Sitting Pulse 70 Pulse Source Pulse Oximeter Temp 97.3 F Temp Source Temporal Artery Scan Pulse Oximetry (%) 93 Oxygen Delivery Method Room Air Intake Visit Reasons: DM , HTN Allergies amlodipine Allergy (Unknown, Verified 09/28/25 09:08) leg swelling irbesartan Allergy (Unknown, Verified 09/28/25 09:08) rectal bleeding iron Allergy (Unknown, Verified 09/28/25 09:08) cough lisinopril Allergy (Unknown, Verified 09/28/25 09:08) unknown Sulfa (Sulfonamide Antibiotics) (SULFA (SULFONAMIDE ANTIBIOTICS)) Allergy (Unknown, Verified 09/28/25 09:08) HIVES carvedilol Adverse Reaction (Intermediate, Verified 09/28/25 09:08) Swelling dapagliflozin (From [facility]) Adverse Reaction (Intermediate, Unverified 09/28/25 09:56) LBP as per patient Influenza Virus Vaccines Adverse Reaction (Intermediate, Verified 09/28/25 09:08) Unknown Medication List - Last Reconciled 09/28/25 by Sd Quintero MD blood pressure monitor (Blood Pressure Kit) As directed blood pressure monitor As directed blood sugar diagnostic (FreeStyle Lite Strips) As directed check the BS twice daily blood-glucose meter (FreeStyle Lite Meter kit) As directed cetirizine (Zyrtec) 10 mg PO DAILY PRN cholecalciferol (vitamin D3) 25 mcg PO DAILY hydroxyzine HCl 25 mg PO BEDTIME lancets (FreeStyle Lancets) As directed check BS BID metformin 500 mg PO BID metoprolol tartrate 50 mg PO BID simvastatin 40 mg PO BEDTIME Tobacco use date assessed: 06/08/25 Fall risk assessment: No Falls in past year Last assessed Fall Risk: 06/08/25 Dental Screening Dental Screen Date: 02/06/25 Did you have a dental visit in the last 12 months?: No Did you have a dental problem in the last 6 months where you did not have access to dental care?: No Was dental information given to patient?: No [facility] Medical History Nicotine dependence, cigarettes, uncomplicated Osteopenia Colonoscopy refused Vitamin D deficiency Allergic rhinitis Type 2 diabetes mellitus with hyperglycemia Post herpetic neuralgia Obesity (BMI 30-39.9) COPD (chronic obstructive pulmonary disease) Hypercholesterolemia Hypertension Surgical History History of nasal septoplasty History of cataract surgery Family History Father No problems noted. Mother No problems noted. Maternal Uncle Diabetes Maternal Uncle Heart problem Social History Household Members: None Housing: Apartment Do you presently have visiting nurse or other home services: No Alcohol intake: never Patient Tobacco Use Status: Current everyday Tobacco user Tobacco use type: Cigarette Cigarettes Per Day: 10 e-Cigarette/Vaping Use: Never Used Second Hand Smoke Exposure: Yes service: No Current occupational status: retired Cognitive needs: No Hearing needs: No Vision needs: No Questionnaire PHQ-9 Over the last 2 weeks, how often have you been bothered by any of the following problems? 1. Little interest or pleasure in doing things: not at all 2. Feeling down, depressed, or hopeless: not at all 3. Trouble falling or staying asleep, or sleeping too much: not at all 4. Feeling tired or having little energy: not at all 5. Poor appetite or overeating: not at all 6. Feeling bad about yourself - or that you are a failure or have let yourself or your family down: not at all 7. Trouble concentrating on things, such as reading the newspaper or watching television: not at all 8. Moving or speaking so slowly that other people could have noticed. Or the opposite - being so fidgety or restless that you have been moving around a lot more than usual: not at all 9. Thoughts that you would be better off or of hurting yourself in some way: not at all Total score: 0 Depression Screening Interpretation: Negative Depression Screening Done: Yes Source: Developed by Drs. South Tam, Valorie Saldana, Alfred Malhotra and colleagues, with an educational lia from [employer]. Thrive Questionnaire Date Thrive assessed: 06/08/25 I am a: Patient What is your living situation today?: I have a steady place to live Within the past 12 months, did the food you bought not last and you didn't have the money to get more?: Never true Within the past 12 months, did you worry whether your food would run out before you got money to buy more?: Never true Do you have trouble paying for medicines?: I choose not to answer this question Do you have trouble getting transportation to medical appointments?: I choose not to answer this question Do you have trouble paying your heating and electricity bill?: I choose not to answer this question Do you have trouble taking care of your child, family member or friend?: I choose not to answer this question Do you have trouble with day-to-day activities such as bathing, preparing meals, shopping, managing finances, etc.?: I choose not to answer this question Are you currently unemployed and looking for a job?: I choose not to answer this question Are you interested in more education?: I choose not to answer this question Please select the resources that you would like help with: None Currently or been in a relationship where the following occur: No concerns reported THRIVE Score: 0 AUDIT C Alcohol Use Questionnaire (AUDIT-C) 1. How often do you have a drink containing alcohol?: Never 3. How often do you have six or more drinks on one occasion?: Never Total Score: 0 ALYSIA-7 AMB Questionnaire ALYSIA-7 Date ALYSIA - 7 assessed: 02/06/25 Feeling nervous, anxious, or on edge: 0 = Not at all Not being able to stop or control worryin = Not at all Worrying too much about different things: 0 = Not at all Trouble relaxin = Not at all Being so restless that it is hard to sit still: 0 = Not at all Becoming easily annoyed or irritable: 0 = Not at all Feeling afraid as if something awful might happen: 0 = Not at all Total ALYSIA-7 score (0-4 normal; 5-9 mild; 10-14 moderate; 15-21 severe): 0 Source: Developed by Drs. South Tam, Valorie Saldana, Alfred Malhotra and colleagues, with an educational lia from [employer]. Physical exam (Primary Care) Vital Signs: Last Vital Signs Temp 97.3 F 09/28/25 09:08 Pulse 70 09/28/25 09:08 BP 140/100 H 09/28/25 09:08 Pulse Ox 93 09/28/25 09:08 Oxygen Delivery Method Room Air 09/28/25 09:08 BMI result Body Mass Index 32.9 Tobacco/Smoking Status: Tobacco use Status Tobacco use date assessed 06/08/25 09/28/25 09:09 Patient Tobacco Use Status Current everyday Tobacco 09/28/25 09:09 Tobacco use type Cigarette 09/28/25 09:09 e-Cigarette/Vaping Use Never Used 09/28/25 09:09 PHQ-9: PHQ-9 Score PHQ-9: Total score 0 09/28/25 10:08 Depression Screening Interpretation: Negative Thrive Assessment: Date of Thrive Assessment Date Thrive assessed 06/08/25 09/28/25 09:09 Currently or been in a relationship where the following occur: No concerns reported Const General: alert; No acute distress Eyes Conjunctivae: conjunctivae normal Resp Auscultation: clear to auscultation bilaterally Cardio Rate: regular rate Rhythm: regular rhythm GI Inspection: Yes normal to inspection Extrem General: Yes normal to inspection and No edema Results AMB Hemoglobin A1c AMB Hemoglobin A1c 7.3 % Last Edit by Syeda Rand CMA on 09/28/25 10:08 Results Reviewed Results Reviewed: Laboratory Last Values Hgb A1c (Clinic) 7.3 % (4.0-6.0) H 09/28/25 10:08 Coding Level of Care Code Est Pt Level 4 (30497) Complex EM visit Add On G2211 Diagnoses Type 2 diabetes mellitus with hyperglycemia, without long-term current use of insulin E11.65 Diabetes mellitus terminal block assembler insulin use: without penitentiary use Essential hypertension I10 Hypertension type: essential hypertension Hypercholesterolemia E78.00 Generalized anxiety disorder F41.1 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 Montilla Code(s): E11.65 - Type 2 diabetes mellitus with hyperglycemia Category: Medical Qualifiers: Diabetes mellitus penitentiary insulin use: without terminal block assembler use Qualified Code(s): E11.65 - Type 2 diabetes mellitus with hyperglycemia Plan: Decrease the amount of carbohydrate intake, pasta, bread, rice and potatoes are all sugar and that is aside from all the sweet stuff, remember that fruits are good but they are Sweet also. Hemoglobin A1c goal of less than 7.0 on Farxiga 10 mg once a day metformin 500 mg twice a day (2) Hypertension: Code(s): I10 - Essential (primary) hypertension Category: Medical Qualifiers: Hypertension type: essential hypertension Qualified Code(s): I10 - Essential (primary) hypertension Plan: Continue with blood pressure medication. Decrease salt intake and exercise patient is on metoprolol 50 mg twice a day (3) Hypercholesterolemia: Code(s): E78.00 - Pure hypercholesterolemia, unspecified Category: Medical Plan: Avoid fried foods, chicken skin, eggs, butter margarine, pastries and meat. Be it pork or beef they have a lot of cholesterol LDL goal of less than 100 and triglyceride of less than 150 on simvastatin 40 mg once a day (4) Generalized anxiety disorder: Comment: declined referral to counselling Code(s): F41.1 - Generalized anxiety disorder Category: Medical Plan: Continue on hydroxyzine (5) COPD (chronic obstructive pulmonary disease): Code(s): J44.9 - Chronic obstructive pulmonary disease, unspecified Category: Medical Qualifiers: COPD type: emphysema Emphysema type: panlobular Qualified Code(s): J43.1 - Panlobular emphysema Plan: Patient has not required any inhaler (6) Nicotine dependence, cigarettes, uncomplicated: Code(s): F17.210 - Nicotine dependence, cigarettes, uncomplicated Category: Medical Plan: Patient is strongly advised to stop smoking Plan History of Present Illness The patient is a 79-year-old obese female presenting for a follow-up visit for management of multiple chronic conditions. Her past medical history is significant for generalized anxiety disorder, diabetes mellitus, COPD, hypertension, hypercholesterolemia, and osteopenia. She has a history of smoking. The patient follows up with nephrology and was last seen on July 28 for hyponatremia and hypertension, with a diagnosis of euvolemic hyponatremia. She has stopped taking hydrochlorothiazide and also discontinued amlodipine due to edema. She is currently on metoprolol. Recent blood work from July showed hyponatremia with a sodium level of 133. Her kidney function is good. Blood count from January was within normal limits. Her hemoglobin A1c in May was 7.3, and her last cholesterol test from January 2025 showed an LDL of 86. For health maintenance, her last bone density scan was in June 2022. She is due for a mammogram and a bone density scan but has declined a colonoscopy. Regarding her COPD, she has not required an inhaler. Health Maintenance The patient is due for a mammogram and a bone density scan. She has been advised to hydrate, eat healthy, and stay active. She will follow up in three months. Social History - Substance Use: The patient has a history of smoking and was strongly advised to stop. - Exercise: The patient was advised to keep moving. - Diet: The patient was advised to eat healthy. Review of Systems Physical Exam Results - Labs: Blood count was within normal limits in January. - Labs: Blood work in July showed hyponatremia with a sodium of 133. - Labs: Kidney function is good. - Labs: Hemoglobin A1c was 7.3 in May. - Labs: Cholesterol test in January 2025 showed an LDL of 86. - Tests and Diagnostics: Last bone density scan was in June 2022. Plan Patient was informed and verbally consented to the use of an ambient scribe for clinic note documentation during this visit. 1. Diabetes Mellitus The goal for hemoglobin A1c is less than 7.0. The patient will take Farxiga 10 mg once a day and metformin 500 mg twice a day, which represents an increase in the metformin dose. 2. Hypertension The patient will continue taking metoprolol 50 mg twice a day. She continues to follow up with nephrology for her hypertension and hyponatremia. 3. Hypercholesterolemia The LDL goal is less than 100 and triglyceride goal is less than 150. The patient will continue simvastatin 40 mg once a day. 4. Generalized Anxiety Disorder The patient will continue taking hydroxyzine as needed. 5. Chronic Obstructive Pulmonary Disease The patient has not required any inhaler and will continue to be monitored. 6. Tobacco Use The patient was strongly advised to stop smoking. Discussion Notes I discussed the management plan for the patient's multiple chronic conditions. For her diabetes, the hemoglobin A1c goal is less than 7.0, and I have increased her metformin to 500 mg twice a day to be taken with Farxiga 10 mg once a day. For her hypertension, she will continue metoprolol 50 mg twice a day. For hypercholesterolemia, the LDL goal is less than 100, and she will continue simvastatin 40 mg once daily. We will continue hydroxyzine for her anxiety. I noted that her COPD is stable and has not required recent inhaler use. I strongly advised the patient to stop smoking and encouraged her to hydrate adequately, eat a healthy diet, and stay physically active. We will have a follow-up visit in three months. Patient Instructions - For your diabetes, continue taking Farxiga 10 mg once a day and metformin 500 mg twice a day. - Your dose of metformin has been increased. - For your blood pressure, continue taking metoprolol 50 mg twice a day. - For your cholesterol, continue taking simvastatin 40 mg once a day. - Continue taking hydroxyzine for anxiety. - It is very important that you stop smoking. - Please drink plenty of water, eat healthy foods, and try to keep yourself moving. - You are due to have a mammogram and a bone density scan. - Please schedule a follow-up appointment in three months. Orders: Orders Complete Blood Count Auto Diff 3 Months E11.65 - Type 2 diabetes mellitus with hyperglycemia Comprehensive Met. Panel 3 Months E11. - Type 2 diabetes mellitus with hyperglycemia Free T4 (Free Thyroxine) 3 Months E11.65 - Type 2 diabetes mellitus with hyperglycemia Lipid Panel 3 Months E11.65 - Type 2 diabetes mellitus with hyperglycemia, E78.00 - Pure hypercholesterolemia, unspecified Thyroid Stimulating Hormone 3 Months E11.65 - Type 2 diabetes mellitus with hyperglycemia Vitamin B12 and Folate 3 Months E11.65 - Type 2 diabetes mellitus with hyperglycemia Vitamin D 25-OH Total 3 Months E11.65 - Type 2 diabetes mellitus with hyperglycemia Magnesium 3 Months E11.65 - Type 2 diabetes mellitus with hyperglycemia Hemoglobin A1c 3 Months E11.65 - Type 2 diabetes mellitus with hyperglycemia Creatinine Urine 3 Months E11.65 - Type 2 diabetes mellitus with hyperglycemia Microalbumin, Random (w Creat) 3 Months E11.65 - Type 2 diabetes mellitus with hyperglycemia AMB Hemoglobin A1c Today Z13.9 - Encounter for screening, unspecified Medications: Changed From metformin 500 mg PO BID 180 tabs 6RF E11.65 - Type 2 diabetes mellitus with hyperglycemia To metformin 1,000 mg PO BID 180 tabs 1RF E11.65 - Type 2 diabetes mellitus with hyperglycemia
[2025-09-28 09:08] VITALS: BP 140/100; PULSE 70; TEMP 36.3; O2SAT 93; BMI 32.9
== END 2025-09-28 10:13 | disposition home or self-care (01) ==
LOC: HO.HMCH 08:58
PROVIDERS: PCP Internal Medicine; Visit Provider Internal Medicine
DX: E11.65 Type 2 diabetes mellitus with hyperglycemia (principal); J43.1 Panlobular emphysema; I10 Essential (primary) hypertension; E78.00 Pure hypercholesterolemia, unspecified; F41.1 Generalized anxiety disorder; F17.210 Nicotine dependence, cigarettes, uncomplicated

== ENCOUNTER → 2025-09-28 08:57 | Outpatient (BNVA) | payer MEDICARE, MEDICAID, SELFPAY | PROVIDERS: PCP Internal Medicine; Visit Provider Internal Medicine | DX: E11.65 Type 2 diabetes mellitus with hyperglycemia (principal); E78.00 Pure hypercholesterolemia, unspecified; I10 Essential (primary) hypertension; F41.1 Generalized anxiety disorder; F17.210 Nicotine dependence, cigarettes, uncomplicated; Z71.6 Tobacco abuse counseling | CPT/HCPCS: 83036; 99212 ==